=== PATIENT | male | born 1940 | race Caucasian/White ===

== ENCOUNTER → 2016-12-29 | Outpatient (CLI) | payer BC ==
[~2016-12-29] MED LIST: ALPR-385 PO; ASPI81TA85 PO; CLR10 PO; DILT1CAP15 PO; FINA5TAB PO; HYDR-4717 PO; MAGN400C2 PO; METF-384 PO; PARO20TA4 PO; PARO40TA3 PO; POTA-65 PO; ROSU5TAB PO; TERA1CAP63 PO; TPRSR/100 PO
[2016-12-29 10:28] LABS: ESTIMATED AVERAGE GLUCOSE 137 mg/dl; HA1C FLAG Normal (Normal)
[2016-12-29 10:47] LABS: ALT/SGPT 24 U/L (12-78); BLOOD UREA NITROGEN 21 mg/dl (7-18); BUN/CREATININE RATIO 20.6 (10-20); CALCIUM 8.8 mg/dl (8.5-10.1); CARBON DIOXIDE 24 mmol/L (21-32); CHLORIDE 105 mmol/L (98-107); CHOLESTEROL 122 mg/dl (0-200); GLUCOSE 135 mg/dl (70-99); POTASSIUM 4.1 mmol/L (3.5-5.1); SODIUM 140 mmol/L (136-145)
[2016-12-29 10:51] LABS: CHOLESTEROL/HDL RATIO 2.6; HDL CHOLESTEROL 47 mg/dl; LDL CHOLESTEROL CALCULATED 49 mg/dl; PHOSPHORUS 2.8 mg/dl (2.5-4.9); TRIGLYCERIDES 129 mg/dl (0-150); VERY LOW DENSITY LIPOPROT CALC 26 mg/dl
--- NOTE | 2017-01-04 12:16 | CODING QUERY MEDICAL NECESSITY ---
SUPPORTING DIAGNOSIS NEEDED A supporting diagnosis is required for the test/procedure performed on this patient in order for us to be reimbursed by the patient's insurance. Please provide a supporting diagnosis for the following test/procedure listed below next to the test name along with your signature. *If there is no additional diagnosis for this patient that would support the following test/procedure please document that below next to the test/procedure. Test(s)/Procedure(s) that require a supporting diagnosis: * GLYCATED HEMOGLOBIN DIAGNOSIS: * DOS: 12/29/16 Provider Signature: Date: Thank you Jayla Palacio Health Information Management Once completed, please kindly fax back to [phone] For questions please call [phone]
== END | disposition home or self-care (01) ==
LOC: C.LAB1850 09:13
PROVIDERS: ATTEND Family Medicine
DX: I10 Essential (primary) hypertension (principal); E78.00 Pure hypercholesterolemia, unspecified; E87.6 Hypokalemia

== ENCOUNTER → 2017-02-15 | Outpatient (CLI) | payer BC ==
[2017-02-15 12:27] LABS: BASO % 0.3 %; BASO ABS # 0.02 K/uL (0-0.2); COMPLETE YES; EOS % 5.5 %; HEMATOCRIT 39.3 % (42-52); IG% 0.1 %; LYMPH % 27.8 %; LYMPH ABS # 1.86 K/uL (1.2-3.4); MEAN CELL VOLUME 94.2 fL (80-100); MEAN CORPUSCULAR HEMOGLOBIN 32.4 pg (25-34); MEAN CORPUSCULAR HGB CONC 34.4 g/dl (32-36); MONO % 10.6 %; NEUT % 55.7 %; PLATELET COUNT 227 K/uL (130-400); RED BLOOD COUNT 4.17 M/uL (4.7-6.1); WHITE BLOOD COUNT 6.68 K/uL (4.8-10.8)
[2017-02-15 13:27] LABS: ALT/SGPT 25 U/L (12-78); BLOOD UREA NITROGEN 23 mg/dl (7-18); BUN/CREATININE RATIO 23.2 (10-20); CARBON DIOXIDE 25 mmol/L (21-32); CHLORIDE 108 mmol/L (98-107); GLUCOSE 139 mg/dl (70-99); POTASSIUM 4.2 mmol/L (3.5-5.1); SODIUM 141 mmol/L (136-145)
[2017-02-15 13:31] LABS: CALCIUM 9.3 mg/dl (8.5-10.1)
[2017-02-15 13:38] LABS: ALB/GLOB RATIO 1.2 (0.9-2); ALKALINE PHOSPHATASE 57 U/L (45-117); AST/SGOT 20 U/L (15-37); FERRITIN 118.5 ng/ml (8.0-388.0); PHOSPHORUS 2.9 mg/dl (2.5-4.9); THYROID STIMULATING HORMONE 0.745 uIu/ml (0.300-4.500)
== END | disposition home or self-care (01) ==
LOC: C.LAB1850 11:04
PROVIDERS: ATTEND Dermatology
DX: L29.9 Pruritus, unspecified (principal); C44.519 Basal cell carcinoma of skin of other part of trunk; L82.1 Other seborrheic keratosis; L57.0 Actinic keratosis

== ENCOUNTER → 2017-02-15 | Outpatient (CLI) | payer BC | END | disposition home or self-care (01) | LOC: C.PATHSPEC 10:10 | PROVIDERS: ATTEND Dermatology | DX: C44.519 Basal cell carcinoma of skin of other part of trunk (principal); L82.1 Other seborrheic keratosis; L57.0 Actinic keratosis ==

== ENCOUNTER → 2017-04-15 | Outpatient (CLI) | payer BC | END | disposition home or self-care (01) | LOC: C.PATHSPEC 16:20 | PROVIDERS: ATTEND Dermatology | DX: C44.519 Basal cell carcinoma of skin of other part of trunk (principal) ==

== ENCOUNTER → 2017-07-07 | Outpatient (CLI) | payer BC ==
[2017-07-07 12:35] LABS: BLOOD UREA NITROGEN 16 mg/dl (7-18); CALCIUM 8.8 mg/dl (8.5-10.1); CARBON DIOXIDE 26 mmol/L (21-32); CHLORIDE 107 mmol/L (98-107); CREATININE 0.97 mg/dl (0.60-1.40); GLUCOSE 146 mg/dl (70-99); MAGNESIUM 1.8 mg/dl (1.8-2.4); POTASSIUM 3.9 mmol/L (3.5-5.1); SODIUM 140 mmol/L (136-145)
[2017-07-07 12:38] LABS: ALT/SGPT 21 U/L (12-78); CHOLESTEROL 114 mg/dl (0-200); CHOLESTEROL/HDL RATIO 2.4; HDL CHOLESTEROL 47 mg/dl; LDL CHOLESTEROL CALCULATED 42 mg/dl; TRIGLYCERIDES 123 mg/dl (0-150); VERY LOW DENSITY LIPOPROT CALC 25 mg/dl
[2017-07-07 12:42] LABS: ESTIMATED AVERAGE GLUCOSE 157 mg/dl; HA1C FLAG Normal (Normal)
[2017-07-07 13:11] LABS: RATIO 18.8 mcg/mg (0-30.0)
--- NOTE | 2017-07-14 12:27 | CODING QUERY MEDICAL NECESSITY ---
SUPPORTING DIAGNOSIS NEEDED A supporting diagnosis is required for the test/procedure performed on this patient in order for us to be reimbursed by the patient's insurance. Please provide a supporting diagnosis for the following test/procedure listed below next to the test name along with your signature. *If there is no additional diagnosis for this patient that would support the following test/procedure please document that below next to the test/procedure. Test(s)/Procedure(s) that require a supporting diagnosis: * VITAMIN B12 DIAGNOSIS: Provider Signature: Date: Thank you Yun [place] [employer] Information Management Once completed, please kindly fax back to [phone] For questions please call [phone]
== END | disposition home or self-care (01) ==
LOC: C.LAB1850 10:34
PROVIDERS: ATTEND Family Medicine
DX: E11.9 Type 2 diabetes mellitus without complications (principal); E83.42 Hypomagnesemia

== ENCOUNTER → 2017-09-05 | Outpatient (CLI) | payer BC ==
[2017-09-05 10:22] LABS: URINE APPEARANCE CLEAR (CLEAR); URINE BILIRUBIN NEG (NEG); URINE COLOR YELLOW; URINE NITRITE NEG (NEG); URINE SPECIFIC GRAVITY 1.026 (1.000-1.030); UROBILINOGEN NEG (NEG)
[2017-09-05 10:29] LABS: BLOOD UREA NITROGEN 19 mg/dl (7-18); BUN/CREATININE RATIO 18.7 (10-20); CALCIUM 8.9 mg/dl (8.5-10.1); CARBON DIOXIDE 28 mmol/L (21-32); CHLORIDE 103 mmol/L (98-107); CREATININE 1.01 mg/dl (0.60-1.40); GLUCOSE 161 mg/dl (70-99); MAGNESIUM 1.8 mg/dl (1.8-2.4); SODIUM 140 mmol/L (136-145)
[2017-09-05 10:34] LABS: MANUAL MICROSCOPIC REQUIRED? NO; REVIEW REQ? NO
== END | disposition home or self-care (01) ==
LOC: C.LAB1850 08:06
PROVIDERS: ATTEND Internal Medicine Nephrology
DX: I10 Essential (primary) hypertension (principal)

== ENCOUNTER → 2017-09-06 | Outpatient (CLI) | payer BC | END | disposition home or self-care (01) | LOC: C.PATHSPEC 17:39 | PROVIDERS: ATTEND Dermatology | DX: L72.0 Epidermal cyst (principal) ==

== ENCOUNTER → 2017-09-21 | Outpatient (CLI) | payer BC ==
[2017-09-21 12:29] LABS: BLOOD UREA NITROGEN 11 mg/dl (7-18); GLUCOSE 159 mg/dl (70-99)
[2017-09-21 12:30] LABS: BUN/CREATININE RATIO 11.4 (10-20); CALCIUM 8.8 mg/dl (8.5-10.1); CARBON DIOXIDE 28 mmol/L (21-32); CHLORIDE 103 mmol/L (98-107); PHOSPHORUS 2.6 mg/dl (2.5-4.9); POTASSIUM 3.1 mmol/L (3.5-5.1); SODIUM 139 mmol/L (136-145)
== END | disposition home or self-care (01) ==
LOC: C.LAB1850 09:39
PROVIDERS: ATTEND Internal Medicine Nephrology
DX: I10 Essential (primary) hypertension (principal)

== ENCOUNTER → 2018-01-10 | Outpatient (CLI) | payer BC ==
[2018-01-10 12:45] LABS: HEMOGLOBIN A1C 7.4 % (4.5-5.6)
[2018-01-10 12:51] LABS: ALT/SGPT 21 U/L (12-78); BLOOD UREA NITROGEN 15 mg/dl (7-18); CALCIUM 9.1 mg/dl (8.5-10.1); CARBON DIOXIDE 30 mmol/L (21-32); CHOLESTEROL 130 mg/dl (0-200); CREATININE 1.08 mg/dl (0.60-1.40); GLUCOSE 172 mg/dl (70-99); POTASSIUM 3.5 mmol/L (3.5-5.1); SODIUM 139 mmol/L (136-145)
[2018-01-10 12:55] LABS: LDL CHOLESTEROL CALCULATED 60 mg/dl
== END | disposition home or self-care (01) ==
LOC: C.LAB1850 09:57
PROVIDERS: ATTEND Family Medicine
DX: I10 Essential (primary) hypertension (principal); E11.9 Type 2 diabetes mellitus without complications; E78.00 Pure hypercholesterolemia, unspecified; E83.42 Hypomagnesemia

== ENCOUNTER 2020-07-03 11:55 | Observation (INO) ==
[2020-07-03] MEDS ORDERED: BACITRACIN INJ 50,000 UNIT VIAL ONE (12:03)
[2020-07-03] MEDS ORDERED: BUPIVACAINE 0.25% 30 ML VIAL ONE (12:03)
[2020-07-03] MEDS ORDERED: LIDOCAINE HCL 1% 20 ML VIAL ONE (12:03)
[2020-07-03] MEDS ORDERED: MIDAZOLAM HCL 5 MG/ML 1 ML VIAL ONE (12:19)
[2020-07-03] MEDS ORDERED: CEFAZOLIN 250 MG/ML 1 GM VIAL ONE (12:20)
[2020-07-03] MEDS ORDERED: fentaNYL citrate 100 MCG/2 ML VIAL ONE ×2 (12:20→13:54)
--- NOTE | 2020-07-03 12:23 | History & Physical Bridge Note ---
Date of Service July 03, 2020 History & Physical Bridge Note I have examined the patient, reviewed the History & Physical and in the interval since the performance of the History & Physical I have noted the following changes of clinical significance: no changes noted
--- NOTE | 2020-07-03 12:25 | Pre Anesthesia Assessment ---
Date of Service July 03, 2020 Pre Sedation Assessment Vital Signs Temp Pulse Resp BP Pulse Ox 07/03/20 12:09 36.6 C 74 18 176/82 H 97 Cardiovascular + regular rate Respiratory + respiratory effort normal Pre-Sedation Airway Assessment Smoking Status: Never smoker Hx Sleep Apnea: No Hx Difficult Intubation: No Short, Thick Neck: No Thyromental Distance: > or= 3.5 Finger Breadths Oral Cavity: + WNL Mallampati Class: III ASA: ASA3 Procedure Planning Contraindications for Sedation: none Current Medications Reviewed: Yes Notes The planned sedation has been discussed with the patient. Informed Consent was obtained. I have identified the patient, determined the appropriateness of sedation and have assessed the patient immediately prior to the procedure. All medicine(s) and interventions are by my order.
[2020-07-03] MEDS ORDERED: OXYCODONE HCL IR 5 MG TAB (IMMEDIATE RELEASE) PO PRN (14:29)
[2020-07-03] MEDS ORDERED: ACETAMINOPHEN 325 MG TAB PO PRN (14:29)
--- NOTE | 2020-07-03 14:29 | Electrophysiology Report ---
Date of Service July 03, 2020 Electrophysiology Procedure Electrophysiology Procedure Report Procedure performed: Implantation of biventricular ICD Staff electrical line splicer: Noe Davenport MD Indication: The patient is a 79-year-old gentleman with a history of an ischemic cardiomyopathy. Despite optimal medical therapy continues to have an ejection fraction less than 35%. He has not had a revascularization in the past 90 days or myocardial infarction in the past 40 days. He has an anticipated longevity greater than 1 year. Continues to have symptoms of congestive heart failure. He is also noted to have a very long first-degree AV block and a right bundle branch block with a QRS duration greater than 150 ms. As such, he is felt to be a good candidate for biventricular pacing. An ICD was implanted for primary prevention of sudden cardiac . Procedure in detail: The patient was informed of the risks benefits and alternatives to the intended procedure and she wished to proceed. He was taken to the electrophysiology suite in a fasting state. A preoperative antibiotic had been administered. The patient was monitored electrocardiographically throughout today's procedure and conscious sedation was administered per protocol. The left upper pectoral area is prepped and draped in usual sterile fashion. This area was anesthetized using subcutaneous administration of a xylocaine solution. An incision was made at this site and carried down to the prepectoralis fascia using sharp dissection. Electrocautery was also employed for dissection as well as for hemostasis. A device pocket was fashioned tissues above the pectoralis muscle. Subsequent to this maneuver the left axillary vein was accessed using modified Seldinger technique. 2 sheaths were initially placed over guidewires and use facilitate passage of the right atrial and right ventricular leads under fluoroscopic guidance. Adequate sensing and threshold parameters were obtained prior to active excision of these leads to the endocardial surface. The proximal portion of the leads were then sutured the prepectoral/using nonabsorbable suture. A third sheath was placed over guidewire and used to facilitate passage of a guiding catheter for engagement of the coronary sinus. Once engaged limited coronary sinus venography was performed in order to identify suitable target vessel. Once identified standard guidewire techniques were employed in order deliver the pacing lead to the target vessel. Adequate sensing and threshold parameters as well as the absence of diaphragmatic stimulation at high output were obtained prior to removal of the guiding sheath. The proximal portion of lead was then sutured the prepectoral/using nonabsorbable suture. The device pocket was irrigated with antibiotic solution. The leads were then attached to the device. The device and leads were then placed in the pocket and pocket was closed in 3 layers of absorbable suture. Steri-Strips and sterile dressing were applied. The device was tested noninvasively prior to conclusion the procedure. The patient tolerated procedure well there no immediate complications. Equipment used: New pulse generator: Patch Driller [employer]. Model number: [id number] serial number [id number] Right atrial lead: Patch Driller [employer]. Model number: 5076 serial number [id number] Right ventricular lead: Patch Driller [employer]. Model number: 6935M serial number [id number] Left ventricular lead: Patch Driller [employer]onic. Model #4298 serial number [id number] Measured data: Right atrial lead: The patient was in atrial fibrillation at the time of implant. Right ventricular lead: R waves measured 7.5 mV. Pacing threshold 0.75 V 0.4 ms with a pacing V as of 437 ohms Left ventricular lead: R waves measured 10.1 mV. Pacing threshold was 0.75 V 0.4 ms with a pacing pins of 380 ohms Impression: Successful implantation of biventricular ICD New atrial fibrillation [facility] Electrophysiology codes Pacing Procedure 1: Pacin BiV electrode w/Pacer / ICD implant, add on code ICD Procedure 1: ICD: 35508 Insert single or dual ICD system PG Moderate Sedation Codes Moderate Sedation Codes Procedure 1: Sedation/Anesthesia: 44531 Mod Sedation by the same physician;Init15 Min Child Age 5 & Up Procedure 2: Sedation/Anesthesia: 95101 Mod Sedation by the same physician;Init15 Min Child Age 5 & Up
--- NOTE | 2020-07-03 14:32 | Post Anesthesia Assessment ---
Date of Service July 03, 2020 Post Sedation Assessment Vital Signs Temp Pulse Resp BP Pulse Ox 07/03/20 12:09 36.6 C 74 18 176/82 H 97 Recovery Score Activity: Moves 4 extremities Respiration: Deep Breath/Cough Circulation: +/-20% PreAnes Value Consciousness: Fully Awake Oxygen Saturation: > 92% On Room Air Discharge Sedation Level of Care: Fast Track Phase II Post Sedation Plan On clinical assessment, the patient appears to have tolerated the sedation without complications. Patient is recovering as anticipated. Patient will continue to be monitored by nursing and may be discharged when sedation discharge criteria are met per below protocol. Upon Completions of procedure up to 15 minutes continue every 5 minute vital signs and the P.A.R. score; then discharge to a Phase I or Fast Track to Phase I I per the following guidelines: * Discharge Patient to appropriate Phase II area if PAR is 8 or greater or return to pre- procedure baseline. The post - procedure orders will be as directed. * If PAR score is less than 8 or not return to pre-procedure baseline then patient will follow Phase I monitoring till PAR is reached for Phase II. The Phase I may be done in procedure room or may call to secure a Phase I area. * If naloxone or flumazenil are used for reversal, hold in Phase I for continued monitoring from when last reversal dose was given for a minimum of 60 minutes or longer pending the nurse and/or physician discretion of patient condition before discharge to Phase II. Please call the Sedation Physician to re-evaluate and complete post-note for discharge to Phase II area. Do NOT discharge from procedure sedation or Phase 1 until post- sedation evaluation note is complete by procedure /sedation MD Sedation Discharge Instructions to be given to the patient at discharge to home.
[2020-07-03] MEDS ORDERED: ALBUTEROL HFA 8 GM INHALER INH PRN (17:18)
[2020-07-03] MEDS: SACUBITRIL-VALSARTAN 97-103 MG TAB PO SCH (18:21)
[2020-07-03] MEDS: POTASSIUM CHLORIDE 20 MEQ TABCR PO SCH (18:22)
[2020-07-03] MEDS: carvediloL 25 MG TAB PO SCH (18:22)
--- NOTE | 2020-07-03 19:07 | Electrocardiogram Report ---
Test Reason : Blood Pressure : / mmHG Vent. Rate : 064 BPM Atrial Rate : 063 BPM P-R Int : 000 ms QRS Dur : 178 ms QT Int : 516 ms P-R-T Axes : 000 233 042 degrees QTc Int : 532 ms Ventricular-paced rhythm Biventricular pacemaker detected Abnormal ECG No previous ECGs available Confirmed by Noe Davenport ([id number]) on 07/03/2020 7:06:38 PM Referred By: Abel Davenport Confirmed By:Jose Alejandro Davenport
[2020-07-03] MEDS: CEFAZOLIN 1000MG 1,000 MG/7.5 ML SYR IV SCH (19:35)
[2020-07-03] MEDS ORDERED: MAGNESIUM OXIDE 400 MG TAB PO SCH (21:00)
[2020-07-04] MEDS: CEFAZOLIN 1000MG 1,000 MG/7.5 ML SYR IV SCH (03:24)
[2020-07-04] MEDS: SACUBITRIL-VALSARTAN 97-103 MG TAB PO SCH (08:22)
[2020-07-04] MEDS: carvediloL 25 MG TAB PO SCH (08:22)
[2020-07-04] MEDS: FUROSEMIDE 40 MG TAB PO SCH ×2 (08:22→08:28)
[2020-07-04] MEDS: POTASSIUM CHLORIDE 20 MEQ TABCR PO SCH (08:23)
[2020-07-04] MEDS ORDERED: ROSUVASTATIN CALCIUM 20 MG TAB PO SCH (09:00)
[2020-07-04] MEDS ORDERED: TERAZOSIN HCL 5 MG CAP PO SCH (09:00)
[2020-07-04] MEDS ORDERED: PARoxetine HCL 20 MG TAB PO SCH (09:00)
[2020-07-04] MEDS ORDERED: ASPIRIN 81 MG ECTAB PO SCH (09:00)
--- NOTE | 2020-07-04 09:44 | XRay Report ---
TWO VIEW CHEST CLINICAL HISTORY: Status post cardiac pacemaker implantation. FINDINGS: PA and lateral chest radiographs are compared to study dated 02/20/2019. A 3-lead cardiac AI CD has been placed and partially obscures the left upper chest. Leads project over the right atrial a ppendage, the right ventricle, and the coronary sinus. The heart is enlarged and there is atheroscler otic calcification of the thoracic aorta. The pulmonary vasculature is noncongested. Trace pleural ef fusions are noted on the lateral projection. There is mild chronic elevation of right hemidiaphragm w ith bibasilar atelectasis. No airspace consolidation is seen typical for pneumonia and there is no pn eumothorax. The skeletal structures are osteopenic. Degenerative change is seen throughout the thorac ic spine. The bony thorax appears intact. IMPRESSION: 1. A 2-lead cardiac AICD has been placed as above. No pneumothorax is seen post procedure. 2. Cardiomegaly without radiographic evidence of congestive failure. 3. Trace pleural effusions. Electronically signed by: Miguel Weber M.D. 07/04/2020 9:43 AM
--- NOTE | 2020-07-04 10:54 | Discharge Summary ---
Date of Service July 04, 2020 Admission HPI Per Admitting Provider Patient with ischemic CM admitted for implantation of BiV ICD Principal Diagnosis q Discharge Exam WOund healing well. No hematoma. No erythema or drainage Discharge Data Allergies Allergy/AdvReac Type Severity Reaction Status Date / Time Penicillins Allergy Unknown Unknown Verified 06/27/20 09:29 finasteride AdvReac Intermediate painful Verified 06/27/20 09:29 breast lisinopril AdvReac Mild cough Verified 06/27/20 09:29 Procedures Performed Operation Date: 07/03/20 13:00 Actual Procedures s Lead LV (No Priopr Implant) - Abel Davenport MD p ICD Insertion Single or Dual - Abel Davenport MD Ordered Studies 07/03/20 06:45 EP Lab Images for PACS ONCE Hospital Course (1) Ischemic cardiomyopathy: Uncomplicated placement of BiV ICD. Interrogation on the day of discharge revealed poor sensing on the atrial lead. Remaining function was normal. CXR did not demonstrate any pneumothorax. Patient presented in atrial fibrllation which was a new diagnosis. Advised to start Xarelto and stop aspirin Total Time Total Time Spent Total Time Spent (In Minutes): 15 Total Time Includes: Examination of the Patient, Discharge Planning and Medication Reconciliation Discharge Plan Discharge Items Patient Disposition: Home - Self-Care Reason For Visit: Ischemic Cardiomyopathy Discharge Diagnosis: ischemic CM Activity: Per Instructions section Activity Comment: Lifting left arm above shoulder be high neck for 6 weeks Lifting: No more than 10 pounds Bathing: Keep incision dry Bathing Comment: Keep wound dry Steri-Strips intact until follow-up next week Driving/Machine Use: Resume 1 day after discharge Non-emergency contact: 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 Washington at [facility] on Tuesday07/07/2020 at 10:20 am. Please arrive to the office 15 minutes early for your appoinment. If you are unable to keep this appointment, please call the office to reschedule at [phone].) Diet: Carb Consistent or DM2 and Heart Healthy Addtl Attending Provider Instructions: Start prescription for Xarelto. Stop aspirin once you have started Xarelto Pending Studies at Discharge: No Stand-Alone Forms: My [facility], Smoking Cessation Medications and DC Order Prescriptions: New Xarelto 20 mg tablet 20 mg PO DAILY Qty: 30 RF: 5 Continued magnesium oxide 400 mg (241.3 mg magnesium) tablet 400 mg PO QPM Qty: 90 RF: 1 paroxetine HCl 40 mg tablet 40 mg PO DAILY Qty: 90 RF: 1 carvedilol 25 mg tablet 25 mg PO BID Qty: 180 RF: 3 metformin 1,000 mg tablet 1,000 mg PO BID Qty: 180 RF: 1 terazosin 10 mg capsule 20 mg PO DAILY Qty: 180 RF: 1 Zeasorb AF 2 % powder 1 appln TOP DAILY PRN (Reason: INGUINAL FOLDS) RF: 0 rosuvastatin 20 mg tablet 20 mg PO DAILY Qty: 90 RF: 3 alprazolam 0.5 mg tablet 0.25 mg PO BID PRN (Reason: anxiety) Qty: 90 RF: 0 furosemide [Lasix] 40 mg tablet 40 mg PO DAILY Qty: 90 RF: 3 hydrocortisone 2.5 % cream 1 applic TOPICAL BID Qty: 30 RF: 5 potassium chloride 10 mEq capsule, extended release 40 meq PO BID Qty: 300 RF: 11 aspirin [Aspirin Low Dose] 81 mg tablet,delayed release (DR/EC) 81 mg PO DAILY RF: 0 sacubitril-valsartan 97-103 mg tablet 1 tab PO BID Qty: 180 RF: 3 albuterol sulfate [Ventolin HFA] 90 mcg/actuation HFA aerosol inhaler 2 puff INHALATION Q4H PRN (Reason: shortness of breath) RF: 0 Discharge Orders: Discharge Order (Routine); Ordered 07/04/20 Ordered By: Abel Davenport Admission Data Admit Date/Time: 07/03/20 12:52 Attending Provider: Abel Davenport Admit Provider: Abel Davenport Primary Care Provider: Emelyn Washington Other Interventions: Discharge Summary Assessment (RN) Last Done: 07/04/20 11:03 Coding Level of Care Code 48499 OBS Care - Discharge Diagnoses Ischemic cardiomyopathy I25.5
== END 2020-07-04 11:05 | disposition home or self-care (01) ==
LOC: EP 11:55 → 2S 11:55
PROC: EPB.ICD (2020-07-03 13:00)

== ENCOUNTER 2021-02-11 14:49 | Observation (INO) ==
[2021-02-11] MEDS ORDERED: MoRPHine SULFATE 4 MG/ML 1 ML CARP\\VIAL IV PRN (15:05)
[2021-02-11] MEDS ORDERED: ONDANSETRON INJ 2 MG/ML 2 ML VIAL IV STA (15:05)
--- NOTE | 2021-02-11 15:11 | Emergency Department Note ---
Impression & Plan Severe right groin pain, Anemia, Incarcerated hernia, Elevated lactic acid level ED Provider Note NAME: KEDAR CRAWLEY AGE: 80 SEX: M : 1940 ARRIVES VIA: Walk-In INFORMANT: [Patient] ED PROVIDER(S): [Miguel Doll MD] CHIEF COMPLAINT: Groin pain HISTORY OF PRESENT ILLNESS: Patient is a 80-year-old male who initially, thought he was constipated. He started taking some Metamucil and Colace. Patient states that yesterday, he noticed some pain in the right groin. Today, he had a large bowel movement and felt no better. He had increased pain in the right groin and felt a lump. Patient went to his doctor's office and was referred to the ED. The patient describes the pain earlier today in the groin as a 10/10. He has had some nausea no vomiting. No fever. He is still making urine. There has been no cough or congestion or shortness of breath. Patient states that the pain is less now at a 5 although, if the area is touched, it becomes a 10. The patient has a history of A. fib. He is on Xarelto. REVIEW OF SYSTEMS: See HPI for pertinent positives and negatives. A total of ten systems were reviewed and were otherwise negative. PMHx/PSHx: See Below SOCIAL HISTORY: See Below. PHYSICAL EXAM: GENERAL: Patient is in no acute distress. HEENT: No acute trauma, normocephalic atraumatic, mucous membranes moist, no nasal congestion, no scleral icterus. NECK: No stridor, no adenopathy, no meningismus, trachea is midline. LUNGS: Clear to auscultation bilaterally, no wheeze, no rhonchi, breath sounds equal. HEART: Subtle systolic murmur, regular rate and rhythm. ABDOMEN: Soft, patient has a large firm tender mass in the right inguinal canal. There is extension of the fullness down to the scrotum. There is no scrotal erythema. Scrotum is tender as well. He is circumcised. EXTREMITIES: No cyanosis, mild bilateral pedal edema, full range of motion of all the joints without pain or difficulty, no signs for acute trauma. NEUROLOGIC: Oriented x 3, no acute motor or sensory deficits, no focal weakness. SKIN: No rash, no jaundice, no diaphoresis. DIFFERENTIAL DIAGNOSIS: Appendicitis, testicular torsion, infections, diverticulitis, UTI, obstruction, mesenteric ischemia, aortic pathology, inflammatory bowel disease, renal colic, PUD, pancreatitis, biliary pathology, hernia, volvulus, constipation, as well as other pathologies. EMERGENCY DEPARTMENT COURSE/PROCEDURES: ECG: Indication was abdominal pain. The ECG shows a ventricular pacemaker with a rate of 82. No concerning ST elevation, no PVCs. The QTc is 546. Continuous Cardiac Monitoring: An order was placed for continuous cardiac monitoring. The monitor shows a rate of 73 with a ventricular pacemaker. MEDICAL DECISION MAKING: There is no leukocytosis. A mild anemia was noted however, this has been documented before. Platelet count somewhat low at 110. There was a subtle elevation of the INR, likely consistent with his Xarelto use. There was evidence for renal insufficiency, this was baseline though when looking back at previous testing. There was no concerning electrolyte abnormality. Lactic acid level was somewhat elevated, this could be consistent with potential bowel ischemia or possibly dehydration. No worrisome liver enzyme elevation. No evidence for pancreatitis. Covid and influenza testing were negative. Chest film does not show any obvious pneumonia or free air. ECG shows a ventricular pacemaker, there was no dysrhythmia. Abdominal and pelvis CT shows a large right inguinal hernia. No bowel obstruction. The patient received IV morphine for pain, IV Zofran for nausea, he was kept n.p.o. I did speak with general surgery. The patient was seen by general surgery here in the ED. The patient is being moved to the OR for operative intervention. The hernia needs repaired. The patient is aware of all his findings. He is currently resting fairly comfortably. 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 unsure of last check. placed after decision not to have CABG d/t ~[address] MILLER BPH (benign prostatic hyperplasia) CAD (coronary artery disease) Cataract RT/LEFT Chronic systolic CHF (congestive heart failure) Depression with anxiety Diabetes type 2, controlled NIDDM Hx of rheumatic fever Hx of scarlet fever Hypercholesterolemia Irregular heart beat Ischemic cardiomyopathy PVCs (premature ventricular contractions) Surgical History History of colonoscopy History of esophagogastroduodenoscopy (EGD) History of tonsillectomy History of tooth extraction S/P cardiac pacemaker procedure (~06/2020) Family History Unknown No problems noted. 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 Beliefs That Will Affect Care: None marital status: Current Living Situation: Spouse current occupational status: retired Feels Safe at Home: Yes Childhood Exposure to Second-Hand Smoke: Yes Dental Care, Regularly: Yes Assistive Devices: Cane Allergies Allergies Allergy/AdvReac Type Severity Reaction Status Date / Time Penicillins Allergy Unknown Unknown Verified 02/11/21 16:40 adhesive tape AdvReac Intermediate itching Verified 02/11/21 16:40 and rash finasteride AdvReac Intermediate painful Verified 02/11/21 16:41 breast lisinopril AdvReac Mild cough Verified 02/11/21 16:41 cotton Allergy Intermediate itching Uncoded 02/11/21 16:41 Home Meds Home Medications Medication Instructions Recorded Confirmed albuterol sulfate 90 mcg/actuation 2 puff INHALATION Q4H PRN gm 06/16/19 02/11/21 aerosol inhaler Xarelto 20 mg PO QPM 10/09/20 02/11/21 diphenhydramine HCl [Benadryl] 25 mg PO QAM PRN 10/09/20 02/11/21 docusate sodium [Colace] 100 mg PO DAILY PRN 10/09/20 02/11/21 hydrocortisone 1 applic TOPICAL BID PRN 10/09/20 02/11/21 ketoconazole 1 applic TOPICAL BID PRN 10/09/20 02/11/21 multivitamin 1 tab PO QAM 10/09/20 02/11/21 rosuvastatin 20 mg PO HS 10/09/20 02/11/21 bumetanide 4 mg PO QPM 02/10/21 02/11/21 metolazone 2.5 mg PO Q2D PRN 02/10/21 02/11/21 terazosin 10 mg PO BID 02/10/21 02/11/21 Previous Rx's Medication Instructions Recorded potassium chloride 10 mEq 40 meq PO BID #300 cap 05/21/20 capsule,extended release sacubitril 97 mg-valsartan 103 mg 1 tab PO BID #180 tab 11/21/20 tablet carvedilol 25 mg tablet 25 mg PO BID #180 tab 11/28/20 metformin 1,000 mg tablet 1,000 mg PO BID #180 tab 12/05/20 magnesium oxide 400 mg (241.3 mg 400 mg PO QPM #90 tab 12/25/20 magnesium) tablet buspirone 15 mg tablet 7.5 mg PO BID #90 tab 01/06/21 Results & Data (ED) Vital Signs Vital Signs - 24 hr 02/11/21 14:53 02/11/21 16:00 02/11/21 16:11 Temperature 36.3 C L Temperature Source Temporal Artery Scan Pulse Rate 73 81 81 Pulse Rate [Apical] Pulse Rate from SpO2 Sensor 81 80 Pulse Rhythm Regular Pulse Rhythm [Apical] Pulse Strength Normal Pulse Strength [Apical] Respiratory Rate 18 15 16 Respiratory Effort / Characteristics Non-Labored Spontaneous Respiratory Depth Normal Respiratory Pattern Regular Blood Pressure 152/81 H 143/85 H Blood Pressure [Left Arm] Blood Pressure Mean 104 104 Blood Pressure Mean [Left Arm] Blood Pressure Position Sitting Blood Pressure Position [Left Arm] Pulse Oximetry 95 93 94 Oxygen Delivery Method Room Air Room Air Room Air Sepsis Recent Fever Within 48 Hours No Sepsis New/Unexplained Change in Mental Status N/A Sepsis Action Taken by Nursing No Action Required 02/11/21 16:29 02/11/21 16:30 02/11/21 18:01 Temperature 36.7 C Temperature Source Oral Pulse Rate 83 Pulse Rate [Apical] 87 Pulse Rate from SpO2 Sensor Pulse Rhythm Pulse Rhythm [Apical] Regular Pulse Strength Pulse Strength [Apical] Normal Respiratory Rate 18 14 18 Respiratory Effort / Characteristics Non-Labored Spontaneous Respiratory Depth Normal Respiratory Pattern Regular Blood Pressure 128/89 Blood Pressure [Left Arm] 134/80 Blood Pressure Mean 102 Blood Pressure Mean [Left Arm] 98 Blood Pressure Position Blood Pressure Position [Left Arm] Semi-fowlers Pulse Oximetry 94 96 Oxygen Delivery Method Room Air Room Air Room Air Sepsis Recent Fever Within 48 Hours Sepsis New/Unexplained Change in Mental Status Sepsis Action Taken by Assisted Medications Current Medication List: was personally reviewed by me Laboratory Data Attestation: I reviewed the patient's lab results. Result diagrams: 02/11/21 15:24 02/11/21 15:24 Lab Results 02/11/21 02/11/21 02/11/21 Range/Units 15:24 15:24 15:24 WBC 4.55 L (4.8-10.8) K/uL RBC 3.67 L (4.7-6.1) M/uL Hgb 12.0 L (14.0-18.0) g/dL Hct 34.2 L (42-52) % MCV 93.2 (80-100) fL MCH 32.7 (25-34) pg MCHC 35.1 (32-36) g/dL RDW Std Deviation 43.4 (36.4-46.3) fL RDW Coeff of Cecilia 12.8 (11.5-14.5) % Plt Count 110 L (130-400) K/uL MPV 10.6 H (7.4-10.4) fL Immature Gran % (Auto) 0.2 % Neut % (Auto) 71.2 % Lymph % (Auto) 16.3 % [place] % (Auto) 7.0 % Eos % (Auto) 5.1 % Baso % (Auto) 0.2 % Neut # (Auto) 3.24 (1.4-6.5) K/uL Lymph # (Auto) 0.74 L (1.2-3.4) K/uL [place] # (Auto) 0.32 (0.11-0.59) K/uL Eos # (Auto) 0.23 (0-0.5) K/uL Baso # (Auto) 0.01 (0-0.2) K/uL Immature Gran # (Auto) 0.01 (0.00-0.02) K/uL PT 13.4 H (9.0-12.0) Seconds INR 1.4 H (0.9-1.1) APTT 30.1 (21.0-31.0) Seconds PTT Ratio 1.1 Sodium 137 (136-145) mmol/L Potassium 4.0 (3.5-5.1) mmol/L Chloride 101 (98-107) mmol/L Carbon Dioxide 30 (21-32) mmol/L Anion Gap 7.0 (3-11) BUN 34 H (7-18) mg/dl Creatinine 2.10 H (0.6-1.4) mg/dl Est Cr Clr Drug Dosing Not Reportable Est GFR ( Amer) 33.9 Est GFR (Non-Af Amer) 29.3 BUN/Creatinine Ratio 16.1 (10-20) Glucose 167 H (70-99) mg/dl Lactate (0.4-2.0) mmol/L Calcium 10.0 (8.5-10.1) mg/dl Total Bilirubin 1.2 H (0.2-1) mg/dl AST 28 (15-37) U/L ALT 24 (12-78) U/L Alkaline Phosphatase 117 (45-117) U/L Total Protein 7.4 (6.4-8.2) gm/dl Albumin 4.3 (3.4-5.0) gm/dl Globulin 3.1 (2.5-4.0) gm/dl Albumin/Globulin Ratio 1.4 (0.9-2) Lipase 157 (73-393) U/L COVID-19 Eval Order SARS-CoV-2 (PCR) (Negative) Influenza Type A (PCR) (Neg) Influenza Type B (PCR) (Neg) RSV (RT-PCR) (Neg) 02/11/21 02/11/21 02/11/21 Range/Units 15:24 15:40 15:40 WBC (4.8-10.8) K/uL RBC (4.7-6.1) M/uL Hgb (14.0-18.0) g/dL Hct (42-52) % MCV (80-100) fL MCH (25-34) pg MCHC (32-36) g/dL RDW Std Deviation (36.4-46.3) fL RDW Coeff of Cecilia (11.5-14.5) % Plt Count (130-400) K/uL MPV (7.4-10.4) fL Immature Gran % (Auto) % Neut % (Auto) % Lymph % (Auto) % [place] % (Auto) % Eos % (Auto) % Baso % (Auto) % Neut # (Auto) (1.4-6.5) K/uL Lymph # (Auto) (1.2-3.4) K/uL [place] # (Auto) (0.11-0.59) K/uL Eos # (Auto) (0-0.5) K/uL Baso # (Auto) (0-0.2) K/uL Immature Gran # (Auto) (0.00-0.02) K/uL PT (9.0-12.0) Seconds INR (0.9-1.1) APTT (21.0-31.0) Seconds PTT Ratio Sodium (136-145) mmol/L Potassium (3.5-5.1) mmol/L Chloride (98-107) mmol/L Carbon Dioxide (21-32) mmol/L Anion Gap (3-11) BUN (7-18) mg/dl Creatinine (0.6-1.4) mg/dl Est Cr Clr Drug Dosing Est GFR ( Amer) Est GFR (Non-Af Amer) BUN/Creatinine Ratio (10-20) Glucose (70-99) mg/dl Lactate 2.1 H* (0.4-2.0) mmol/L Calcium (8.5-10.1) mg/dl Total Bilirubin (0.2-1) mg/dl AST (15-37) U/L ALT (12-78) U/L Alkaline Phosphatase (45-117) U/L Total Protein (6.4-8.2) gm/dl Albumin (3.4-5.0) gm/dl Globulin (2.5-4.0) gm/dl Albumin/Globulin Ratio (0.9-2) Lipase (73-393) U/L COVID-19 Eval Order CovFluRsv at [facility] SARS-CoV-2 (PCR) NEGATIVE (Negative) Influenza Type A (PCR) Negative (Neg) Influenza Type B (PCR) Negative (Neg) RSV (RT-PCR) Negative (Neg) Administered Medications Discontinued Medications Bacitracin (Bacitracin Oint 15 Gm Tube) Confirm Administered Dose 45 appln .ROUTE .STK-MED ONE Stop: 02/11/21 18:45 Last Admin: 02/11/21 20:01 Dose: 45 appln Documented by: [id number] Bupivacaine HCl (Bupivacaine 0.5 % 5 Mg/1 Ml Mpf 30ml Vial) Confirm Administered Dose 30 ml .ROUTE .STK-MED ONE Stop: 02/11/21 18:46 Last Admin: 02/11/21 20:02 Dose: 20 ml Documented by: [id number] Ciprofloxacin (Ciprofloxacin 400mg / 200ml D5w) Confirm Administered Dose 400 mg IV .STK-MED ONE Stop: 02/11/21 18:04 Last Admin: 02/11/21 18:08 Dose: Not Given Documented by: [id number] Ciprofloxacin (Cipro / D5w) 400 mg in 200 mls @ 100 mls/hr IV NOW STA; Protocol Stop: 02/11/21 20:39 Last Admin: 02/11/21 18:33 Dose: 100 mls/hr Documented by: [id number] Lidocaine HCl (Lidocaine Hcl 1% 20 Ml Vial) Confirm Administered Dose 20 ml .ROUTE .[employer]-MED ONE Stop: 02/11/21 18:46 Last Admin: 02/11/21 20:02 Dose: 20 ml Documented by: [id number] Morphine Sulfate (Morphine Sulfate 4 Mg/Ml 1 Ml Carp\Vial) 2 mg IV Q15M PRN PRN Reason: Pain Stop: 02/25/21 15:04 Last Admin: 02/11/21 15:38 Dose: 2 mg Documented by: [id number] Ondansetron HCl (Ondansetron Inj 2 Mg/Ml 2 Ml Vial) 4 mg IV NOW STA Stop: 02/11/21 15:06 Last Admin: 02/11/21 15:38 Dose: 4 mg Documented by: [id number] Imaging Data Radiologist's Impression: Abdomen/Pelvis CT 02/11/21 15:05 CT SCAN OF THE ABDOMEN AND PELVIS WITHOUT CONTRAST CLINICAL HISTORY: right groin hernia into scrotum GROIN PAIN COMPARISON STUDY: No previous studies for comparison. TECHNIQUE: CT scan of the abdomen and pelvis was performed from the lung bases to the proximal femurs. Images are reviewed in the axial, sagittal, and coronal planes. IV contrast was not administered for this examination. A dose lowering technique was utilized adhering to the principles of ALARA. CT DOSE: 613.46 mGy.cm FINDINGS: Lower chest: There are coronary artery calcifications. Pacemaker is visualized. The heart is mildly enlarged. There is minor basilar atelectasis. Liver: The unenhanced liver is normal in size, contour, and attenuation. There is no intrahepatic biliary ductal dilatation. Gallbladder: Unremarkable. Spleen: Normal in size and attenuation. Pancreas: Unremarkable. Adrenal glands: There is mild low density adrenal gland thickening. Kidneys: There are multiple bilateral low-density renal masses consistent with cysts. There is no significant hydronephrosis. There is a nonspecific 5 mm hyperdense left renal focus, likely representing a hyperdense cyst although incompletely evaluated on this noncontrast study. Bowel: There are no transition zones to indicate bowel obstruction. There is a right inguinal hernia containing both small bowel loops as well as the appendix. There is mild infiltration of the mesenteric fat within the hernia sac. There is a right-sided hydrocele. There is no evidence of acute diverticulitis. Peritoneum: There is minimal free pelvic fluid. There is minimal increased density of the lower pelvic mesentery. There is no free intraperitoneal air. There is also a small fat-containing left inguinal hernia and small fat- containing umbilical hernia. Vasculature: Atheromatous changes are present within the mesenteric vessels aorta and iliac vessels. There is no evidence of aortic aneurysm. Adenopathy: None. Pelvic viscera: The prostate is enlarged. Skeletal structures: There are a few scattered sclerotic lesions statistically representing bone islands. Degenerative changes are present within the spine. IMPRESSION: 1. No evidence of bowel obstruction. No evidence of free air 2. Right inguinal hernia containing both small bowel loops as well as the appendix. There is infiltration of the mesenteric fat within the hernia sac. There is a right-sided hydrocele. 3. Small fat-containing left inguinal hernia and umbilical hernia 4. Small amount of free pelvic fluid. Minimal infiltration of the pelvic mesentery. 5. Prostatomegaly 6. Bilateral renal lesions likely representing a combination of cysts and hyperdense cysts. ACT 112: Negative or not required by law. Electronically signed by: Leonel Sanchez M.D. 02/11/2021 4:37 PM Chest X-Ray 02/11/21 15:05 XR chest 1V portable CLINICAL HISTORY: Pain, radiating to the abdomen COMPARISON STUDY: 01/13/2021 FINDINGS: The heart remains enlarged. There is a left subclavian pacer/defibrillator. There is stable elevation/eventration right hemidiaphragm. There is no failure. There is no focal pulmonary consolidation. There are no pleural effusions. There is no free intraperitoneal air.[ IMPRESSION: 1. Stable cardiac enlargement. No active disease in the chest. ACT 112: Negative or not required by law. Electronically signed by: Leonel Sanchez M.D. 02/11/2021 3:40 PM Discharge Plan Visit Data Chief Complaint: Groin Pain Stated Complaint: HERNIA IN GROIN AREA ED Provider: Miguel Doll Discharge Problem: Severe right groin pain, Anemia, Incarcerated hernia, Elevated lactic acid level Patient Disposition: Admitted As Inpatient Condition: Fair Discharge Instructions Interventions: ED Discharge Assessment Last Done: 02/11/21 18:00 Discharge Problem: Anemia Qualifiers: Anemia type: unspecified type Qualified Code(s): D64.9 - Anemia, unspecified
--- NOTE | 2021-02-11 15:30 | Electrocardiogram Report ---
Test Reason : Blood Pressure : / mmHG Vent. Rate : 082 BPM Atrial Rate : 107 BPM P-R Int : 000 ms QRS Dur : 188 ms QT Int : 468 ms P-R-T Axes : 000 226 041 degrees QTc Int : 546 ms Ventricular-paced rhythm Biventricular pacemaker detected Abnormal ECG When compared with ECG of 01-JAN-2021 11:38, Vent. rate has decreased BY 3 BPM Confirmed by Noe Davenport ([id number]) on 02/11/2021 3:30:04 PM Referred By: Confirmed By:Jose Alejandro Davenport
[2021-02-11 15:39] LABS: Basophils # (auto) 0.01 K/uL (0-0.2); Basophils % (auto) 0.2 %; Eosinophils # (auto) 0.23 K/uL (0-0.5); Eosinophils % (auto) 5.1 %; Hematocrit (blood only) 34.2 % (42-52); Immature Granulocytes # (auto) 0.01 K/uL (0.00-0.02); Immature Granulocytes % (auto) 0.2 %; Lymphocytes # (auto) 0.74 K/uL (1.2-3.4); Lymphocytes % (auto) 16.3 %; Mean Corpuscular Hemoglobin 32.7 pg (25-34); Mean Corpuscular Hgb Conc 35.1 g/dL (32-36); Mean Corpuscular Volume 93.2 fL (80-100); Mean Platelet Volume 10.6 fL (7.4-10.4); Monocytes # (auto) 0.32 K/uL (0.11-0.59); Neutrophils # (auto) 3.24 K/uL (1.4-6.5); Neutrophils % (auto) 71.2 %; Platelet Count 110 K/uL (130-400); RDW Coefficient of Variation 12.8 % (11.5-14.5); RDW Standard Deviation 43.4 fL (36.4-46.3); Red Blood Count 3.67 M/uL (4.7-6.1); White Blood Count 4.55 K/uL (4.8-10.8)
--- NOTE | 2021-02-11 15:41 | XRay Report ---
XR chest 1V portable CLINICAL HISTORY: Pain, radiating to the abdomen COMPARISON STUDY: 01/13/2021 FINDINGS: The heart remains enlarged. There is a left subclavian pacer/defibrillator. There is stable elevation/eventration right hemidiaphragm. There is no failure. There is no focal pulmonary consolid ation. There are no pleural effusions. There is no free intraperitoneal air.[ IMPRESSION: 1. Stable cardiac enlargement. No active disease in the chest. ACT 112: Negative or not required by law. Electronically signed by: Leonel Sanchez M.D. 02/11/2021 3:40 PM
[2021-02-11 15:56] LABS: INR 1.4 (0.9-1.1); Partial Thromboplastin Ratio 1.1; Partial Thromboplastin Time 30.1 Seconds (21.0-31.0); Prothrombin Time 13.4 Seconds (9.0-12.0)
[2021-02-11 15:57] LABS: Alanine Aminotransferase 24 U/L (12-78); Albumin Level 4.3 gm/dl (3.4-5.0); Aspartate Aminotransferase 28 U/L (15-37); BUN Creatinine Ratio 16.1 (10-20); Blood Urea Nitrogen 34 mg/dl (7-18); Carbon Dioxide 30 mmol/L (21-32); Chloride 101 mmol/L (98-107); Est GFR (African American) 33.9; Est GFR (Non-African American) 29.3; Glucose 167 mg/dl (70-99); Lipase 157 U/L (73-393); Sodium 137 mmol/L (136-145)
[2021-02-11 16:00] LABS: Albumin Globulin Ratio 1.4 (0.9-2); Alkaline Phosphatase 117 U/L (45-117); Bilirubin,Total 1.2 mg/dl (0.2-1); Globulin 3.1 gm/dl (2.5-4.0); Total Protein 7.4 gm/dl (6.4-8.2)
--- NOTE | 2021-02-11 16:38 | CT Scan Report ---
CT SCAN OF THE ABDOMEN AND PELVIS WITHOUT CONTRAST CLINICAL HISTORY: right groin hernia into scrotum GROIN PAIN COMPARISON STUDY: No previous studies for comparison. TECHNIQUE: CT scan of the abdomen and pelvis was performed from the lung bases to the proximal femurs . Images are reviewed in the axial, sagittal, and coronal planes. IV contrast was not administered fo r this examination. A dose lowering technique was utilized adhering to the principles of ALARA. CT DOSE: 613.46 mGy.cm FINDINGS: Lower chest: There are coronary artery calcifications. Pacemaker is visualized. The heart is mildly e nlarged. There is minor basilar atelectasis. Liver: The unenhanced liver is normal in size, contour, and attenuation. There is no intrahepatic bárbara iary ductal dilatation. Gallbladder: Unremarkable. Spleen: Normal in size and attenuation. Pancreas: Unremarkable. Adrenal glands: There is mild low density adrenal gland thickening. Kidneys: There are multiple bilateral low-density renal masses consistent with cysts. There is no sig nificant hydronephrosis. There is a nonspecific 5 mm hyperdense left renal focus, likely representing a hyperdense cyst although incompletely evaluated on this noncontrast study. Bowel: There are no transition zones to indicate bowel obstruction. There is a right inguinal hernia containing both small bowel loops as well as the appendix. There is mild infiltration of the mesenter ic fat within the hernia sac. There is a right-sided hydrocele. There is no evidence of acute diverti culitis. Peritoneum: There is minimal free pelvic fluid. There is minimal increased density of the lower pelvi c mesentery. There is no free intraperitoneal air. There is also a small fat-containing left inguinal hernia and small fat-containing umbilical hernia. Vasculature: Atheromatous changes are present within the mesenteric vessels aorta and iliac vessels. There is no evidence of aortic aneurysm. Adenopathy: None. Pelvic viscera: The prostate is enlarged. Skeletal structures: There are a few scattered sclerotic lesions statistically representing bone jonny nds. Degenerative changes are present within the spine. IMPRESSION: 1. No evidence of bowel obstruction. No evidence of free air 2. Right inguinal hernia containing both small bowel loops as well as the appendix. There is infiltra tion of the mesenteric fat within the hernia sac. There is a right-sided hydrocele. 3. Small fat-containing left inguinal hernia and umbilical hernia 4. Small amount of free pelvic fluid. Minimal infiltration of the pelvic mesentery. 5. Prostatomegaly 6. Bilateral renal lesions likely representing a combination of cysts and hyperdense cysts. ACT 112: Negative or not required by law. Electronically signed by: Leonel Sanchez M.D. 02/11/2021 4:37 PM
[2021-02-11 16:48] LABS: Influenza A virus by PCR Negative (Neg); Influenza B virus by PCR Negative (Neg); RSV by PCR Negative (Neg); SARS CoV2 RNA(COVID-19) InHosp NEGATIVE (Negative)
--- NOTE | 2021-02-11 17:41 | Surgery Consultation ---
Date of Consultation February 11, 2021 Assessment & Plan (1) Incarcerated right inguinal hernia: pt is a 80 year -old male who presents to ER with one day history right groin pain with bulging. pt is on Xarelto for his A-fib, last dose was yesterday, IMP: incarcerated right inguinal hernia, base on CT scan finding -Right inguinal hernia containing both small bowel loops as well as the appendix. There is infiltration of the mesenteric fat within the hernia sac. and lactate acid is 2. I recommend to do open repair right incarcerated inguinal hernia, possible with mesh,or bowel resection, base on pt is on Xarelto, pt has higher risks with bleeding, infection, hernia recurrence hernia, chronic pain, OH, DVT, stroke , , pt and his daughter understood, they agree with the surgery, they do not want to wait, I answered all questions, Present on Admission?: Yes History of Present Illness History of Present Illness CHIEF COMPLAINT: Groin pain HISTORY OF PRESENT ILLNESS: Patient is a 80-year-old male who initially, thought he was constipated. He started taking some Metamucil and Colace. Patient states that yesterday, he noticed some pain in the right groin. Today, he had a large bowel movement and felt no better. He had increased pain in the right groin and felt a lump. Patient went to his doctor's office and was referred to the ED. The patient describes the pain earlier today in the groin as a 10/10. He has had some nausea no vomiting. No fever. He is still making urine. There has been no cough or congestion or shortness of breath. Patient states that the pain is less now at a 5 although, if the area is touched, it becomes a 10. The patient has a history of A. fib. He is on Xarelto.last dose was taken yesterday. I ( Adri Lovell mD ) got a call for consult incarcerated right inguinal hernia, I reviewed pt's H/P, labs, CT scan with pt and his daughter. 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 unsure of last check. placed after decision not to have CABG d/t ~[address] MILLER BPH (benign prostatic hyperplasia) CAD (coronary artery disease) Cataract RT/LEFT Chronic systolic CHF (congestive heart failure) Depression with anxiety Diabetes type 2, controlled NIDDM Hx of rheumatic fever Hx of scarlet fever Hypercholesterolemia Irregular heart beat Ischemic cardiomyopathy PVCs (premature ventricular contractions) Surgical History History of colonoscopy History of esophagogastroduodenoscopy (EGD) History of tonsillectomy History of tooth extraction S/P cardiac pacemaker procedure (~06/2020) Family History Unknown No problems noted. 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 Beliefs That Will Affect Care: None marital status: Current Living Situation: Spouse current occupational status: retired Feels Safe at Home: Yes Childhood Exposure to Second-Hand Smoke: Yes Dental Care, Regularly: Yes Assistive Devices: Cane Allergies Allergies Allergy/AdvReac Type Severity Reaction Status Date / Time Penicillins Allergy Unknown Unknown Verified 02/11/21 13:22 adhesive tape AdvReac Intermediate itching Verified 02/11/21 13:22 and rash finasteride AdvReac Intermediate painful Verified 02/11/21 13:22 breast lisinopril AdvReac Mild cough Verified 02/11/21 13:22 cotton Allergy Intermediate itching Uncoded 02/11/21 13:22 Home Meds Home Medications Medication Instructions Recorded Confirmed albuterol sulfate 90 mcg/actuation 2 puff INHALATION Q4H PRN gm 06/16/19 02/11/21 aerosol inhaler Xarelto 20 mg PO QPM 10/09/20 02/11/21 diphenhydramine HCl [Benadryl] 25 mg PO QAM PRN 10/09/20 02/11/21 docusate sodium [Colace] 100 mg PO DAILY PRN 10/09/20 02/11/21 hydrocortisone 1 applic TOPICAL BID PRN 10/09/20 02/11/21 ketoconazole 1 applic TOPICAL BID PRN 10/09/20 02/11/21 multivitamin 1 tab PO QAM 10/09/20 02/11/21 rosuvastatin 20 mg PO HS 10/09/20 02/11/21 bumetanide 4 mg PO QPM 02/10/21 02/11/21 metolazone 2.5 mg PO Q2D PRN 02/10/21 02/11/21 terazosin 10 mg PO BID 02/10/21 02/11/21 Previous Rx's Medication Instructions Recorded potassium chloride 10 mEq 40 meq PO BID #300 cap 05/21/20 capsule,extended release sacubitril 97 mg-valsartan 103 mg 1 tab PO BID #180 tab 11/21/20 tablet carvedilol 25 mg tablet 25 mg PO BID #180 tab 11/28/20 metformin 1,000 mg tablet 1,000 mg PO BID #180 tab 12/05/20 magnesium oxide 400 mg (241.3 mg 400 mg PO QPM #90 tab 12/25/20 magnesium) tablet buspirone 15 mg tablet 7.5 mg PO BID #90 tab 01/06/21 Results & Data (ED) Vital Signs Vital Signs - 24 hr 02/11/21 14:53 Temperature 36.3 C L Temperature Source Temporal Artery Scan Pulse Rate 73 Pulse Rhythm Regular Pulse Strength Normal Respiratory Rate 18 Respiratory Effort / Characteristics Non-Labored Spontaneous Respiratory Depth Normal Respiratory Pattern Regular Blood Pressure 152/81 H Blood Pressure Mean 104 Blood Pressure Position Sitting Pulse Oximetry 95 Oxygen Delivery Method Room Air Sepsis Recent Fever Within 48 Hours No Sepsis New/Unexplained Change in Mental Status N/A Sepsis Action Taken by Nursing No Action Required Laboratory Data Result diagrams: 02/11/21 15:24 document embedded image 02/11/21 15:24 document embedded image Lab Results 02/11/21 Range/Units 15:24 WBC 4.55 L (4.8-10.8) K/uL RBC 3.67 L (4.7-6.1) M/uL Hgb 12.0 L (14.0-18.0) g/dL Hct 34.2 L (42-52) % MCV 93.2 (80-100) fL MCH 32.7 (25-34) pg MCHC 35.1 (32-36) g/dL RDW Std Deviation 43.4 (36.4-46.3) fL RDW Coeff of Cecilia 12.8 (11.5-14.5) % Plt Count 110 L (130-400) K/uL MPV 10.6 H (7.4-10.4) fL Immature Gran % (Auto) 0.2 % Neut % (Auto) 71.2 % Lymph % (Auto) 16.3 % [place] % (Auto) 7.0 % Eos % (Auto) 5.1 % Baso % (Auto) 0.2 % Neut # (Auto) 3.24 (1.4-6.5) K/uL Lymph # (Auto) 0.74 L (1.2-3.4) K/uL [place] # (Auto) 0.32 (0.11-0.59) K/uL Eos # (Auto) 0.23 (0-0.5) K/uL Baso # (Auto) 0.01 (0-0.2) K/uL Immature Gran # (Auto) 0.01 (0.00-0.02) K/uL Administered Medications Morphine Sulfate (Morphine Sulfate 4 Mg/Ml 1 Ml Carp\Vial) 2 mg IV Q15M PRN PRN Reason: Pain Stop: 02/25/21 15:04 Last Admin: 02/11/21 15:38 Dose: 2 mg Documented by: [id number] Discontinued Medications Ondansetron HCl (Ondansetron Inj 2 Mg/Ml 2 Ml Vial) 4 mg IV NOW STA Stop: 02/11/21 15:06 Last Admin: 02/11/21 15:38 Dose: 4 mg Documented by: [id number] Imaging Data Radiologist's Impression: Chest X-Ray 02/11/21 15:05 XR chest 1V portable CLINICAL HISTORY: Pain, radiating to the abdomen COMPARISON STUDY: 01/13/2021 FINDINGS: The heart remains enlarged. There is a left subclavian pacer/defibrillator. There is stable elevation/eventration right hemidiaphragm. There is no failure. There is no focal pulmonary consolidation. There are no pleural effusions. There is no free intraperitoneal air.[ IMPRESSION: 1. Stable cardiac enlargement. No active disease in the chest. Allergies Allergy/AdvReac Type Severity Reaction Status Date / Time Penicillins Allergy Unknown Unknown Verified 02/11/21 16:40 adhesive tape AdvReac Intermediate itching Verified 02/11/21 16:40 and rash finasteride AdvReac Intermediate painful Verified 02/11/21 16:41 breast lisinopril AdvReac Mild cough Verified 02/11/21 16:41 cotton Allergy Intermediate itching Uncoded 02/11/21 16:41 Home Medications Medication Instructions Recorded Confirmed Type albuterol sulfate 90 mcg/actuation 2 puff INHALATION Q4H PRN gm 06/16/19 02/11/21 History aerosol inhaler potassium chloride 10 mEq 40 meq PO BID #300 cap 05/21/20 02/11/21 Rx capsule,extended release Xarelto 20 mg PO QPM 10/09/20 02/11/21 History diphenhydramine HCl [Benadryl] 25 mg PO QAM PRN 10/09/20 02/11/21 History docusate sodium [Colace] 100 mg PO DAILY PRN 10/09/20 02/11/21 History hydrocortisone 1 applic TOPICAL BID PRN 10/09/20 02/11/21 History ketoconazole 1 applic TOPICAL BID PRN 10/09/20 02/11/21 History multivitamin 1 tab PO QAM 10/09/20 02/11/21 History rosuvastatin 20 mg PO HS 10/09/20 02/11/21 History sacubitril 97 mg-valsartan 103 mg 1 tab PO BID #180 tab 11/21/20 02/11/21 Rx tablet carvedilol 25 mg tablet 25 mg PO BID #180 tab 11/28/20 02/11/21 Rx metformin 1,000 mg tablet 1,000 mg PO BID #180 tab 12/05/20 02/11/21 Rx magnesium oxide 400 mg (241.3 mg 400 mg PO QPM #90 tab 12/25/20 02/11/21 Rx magnesium) tablet buspirone 15 mg tablet 7.5 mg PO BID #90 tab 01/06/21 02/11/21 Rx bumetanide 4 mg PO QPM 02/10/21 02/11/21 History metolazone 2.5 mg PO Q2D PRN 02/10/21 02/11/21 History terazosin 10 mg PO BID 02/10/21 02/11/21 History Patient History Medical History (Updated 02/11/21 @ 17:52 by Adri Lovell MD) Arthritis Basal cell carcinoma of skin of other part of trunk Bilateral edema of lower extremity 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 unsure of last check. placed after decision not to have CABG d/t ~[address] MILLER BPH (benign prostatic hyperplasia) CAD (coronary artery disease) Cataract RT/LEFT Chronic systolic CHF (congestive heart failure) Depression with anxiety Diabetes type 2, controlled NIDDM Hx of rheumatic fever Hx of scarlet fever Hypercholesterolemia Irregular heart beat Ischemic cardiomyopathy PVCs (premature ventricular contractions) Surgical History History of colonoscopy History of esophagogastroduodenoscopy (EGD) History of tonsillectomy History of tooth extraction S/P cardiac pacemaker procedure (~06/2020) Family History Unknown No problems noted. 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 Beliefs That Will Affect Care: None marital status: Current Living Situation: Spouse current occupational status: retired Feels Safe at Home: Yes Childhood Exposure to Second-Hand Smoke: Yes Dental Care, Regularly: Yes Assistive Devices: Cane Physical Exam Constitutional: WD/WN, vitals as above well developed, well nourished and + acute distress Eyes: cataract, left and right ENMT: external ear and nose normal, oropharynx normal Neck: trachea midline, no thyromegaly Respiratory: normal respiratory effort, lungs clear to auscultation normal respiratory effort Cardiovascular: Rate/Rhythm: + irregularly irregular Gastrointestinal (Abdomen): Percussion/Palpation: + abdomen tender and abdomen soft tenderness at Right groin with bulging, could not reducible, abdomen- soft, NT, ND , no distend Musculoskeletal: no cyanosis or clubbing, extremities motor strength 5/5 Skin: no rashes, warm and dry Neurologic: awake Psychiatric: Orientation: alert and oriented x 3 Results & Data ([facility]) Vital Signs (Past 12 Hours) Vital Signs Temp Pulse Resp BP Pulse Ox 02/11/21 16:30 83 14 128/89 02/11/21 16:29 18 94 02/11/21 16:11 81 16 94 02/11/21 16:00 81 15 143/85 H 93 02/11/21 14:53 36.3 C L 73 18 152/81 H 95 Laboratory Results Abnormal lab results 02/11/21 02/11/21 02/11/21 Range/Units 15:24 15:24 15:24 WBC 4.55 L (4.8-10.8) K/uL RBC 3.67 L (4.7-6.1) M/uL Hgb 12.0 L (14.0-18.0) g/dL Hct 34.2 L (42-52) % Plt Count 110 L (130-400) K/uL MPV 10.6 H (7.4-10.4) fL Lymph # (Auto) 0.74 L (1.2-3.4) K/uL PT 13.4 H (9.0-12.0) Seconds INR 1.4 H (0.9-1.1) BUN 34 H (7-18) mg/dl Creatinine 2.10 H (0.6-1.4) mg/dl Glucose 167 H (70-99) mg/dl Lactate (0.4-2.0) mmol/L Total Bilirubin 1.2 H (0.2-1) mg/dl 02/11/21 Range/Units 15:24 WBC (4.8-10.8) K/uL RBC (4.7-6.1) M/uL Hgb (14.0-18.0) g/dL Hct (42-52) % Plt Count (130-400) K/uL MPV (7.4-10.4) fL Lymph # (Auto) (1.2-3.4) K/uL PT (9.0-12.0) Seconds INR (0.9-1.1) BUN (7-18) mg/dl Creatinine (0.6-1.4) mg/dl Glucose (70-99) mg/dl Lactate 2.1 H* (0.4-2.0) mmol/L Total Bilirubin (0.2-1) mg/dl Diagnostic Findings CT SCAN OF THE ABDOMEN AND PELVIS WITHOUT CONTRAST CLINICAL HISTORY: right groin hernia into scrotum GROIN PAIN COMPARISON STUDY: No previous studies for comparison. TECHNIQUE: CT scan of the abdomen and pelvis was performed from the lung bases to the proximal femurs. Images are reviewed in the axial, sagittal, and coronal planes. IV contrast was not administered for this examination. A dose lowering technique was utilized adhering to the principles of ALARA. CT DOSE: 613.46 mGy.cm FINDINGS: Lower chest: There are coronary artery calcifications. Pacemaker is visualized. The heart is mildly enlarged. There is minor basilar atelectasis. Liver: The unenhanced liver is normal in size, contour, and attenuation. There is no intrahepatic biliary ductal dilatation. Gallbladder: Unremarkable. Spleen: Normal in size and attenuation. Pancreas: Unremarkable. Adrenal glands: There is mild low density adrenal gland thickening. Kidneys: There are multiple bilateral low-density renal masses consistent with cysts. There is no significant hydronephrosis. There is a nonspecific 5 mm hyperdense left renal focus, likely representing a hyperdense cyst although incompletely evaluated on this noncontrast study. Bowel: There are no transition zones to indicate bowel obstruction. There is a right inguinal hernia containing both small bowel loops as well as the appendix. There is mild infiltration of the mesenteric fat within the hernia sac. There is a right-sided hydrocele. There is no evidence of acute diverticulitis. Peritoneum: There is minimal free pelvic fluid. There is minimal increased density of the lower pelvic mesentery. There is no free intraperitoneal air. There is also a small fat-containing left inguinal hernia and small fat- containing umbilical hernia. Vasculature: Atheromatous changes are present within the mesenteric vessels aorta and iliac vessels. There is no evidence of aortic aneurysm. Adenopathy: None. Pelvic viscera: The prostate is enlarged. Skeletal structures: There are a few scattered sclerotic lesions statistically representing bone islands. Degenerative changes are present within the spine. IMPRESSION: 1. No evidence of bowel obstruction. No evidence of free air 2. Right inguinal hernia containing both small bowel loops as well as the appendix. There is infiltration of the mesenteric fat within the hernia sac. There is a right-sided hydrocele. 3. Small fat-containing left inguinal hernia and umbilical hernia 4. Small amount of free pelvic fluid. Minimal infiltration of the pelvic mesentery. 5. Prostatomegaly 6. Bilateral renal lesions likely representing a combination of cysts and hyperdense cysts.
[2021-02-11] MEDS ORDERED: CIPROFLOXACIN 400MG / 200ML D5W IV ONE (18:03)
--- NOTE | 2021-02-11 18:03 | History & Physical Bridge Note ---
Date of Service February 11, 2021 History & Physical Bridge Note I have examined the patient, reviewed the History & Physical and in the interval since the performance of the History & Physical I have noted the following changes of clinical significance: no changes noted
--- NOTE | 2021-02-11 18:06 | Anesthesiology Consultation ---
Date of Service February 11, 2021 Assessment & Plan Chart Review Chart Review: Acceptable Risk for Surgery and Patient NOT seen in Pre Admission Testing Consults Requested none ASA [id number] Proposed Anesthesia Anesthesia Type: MAC Anesthesia Line Insertion: Arterial line Additional Comments: covid test negative History Surgery Operation Date: 02/11/21 18:30 Proposed Procedures p Inguinal Hernia Repair - Adri Lovell MD Height/Weight Height: 6 ft Weight: 84.9 kg Allergies Allergy/AdvReac Type Severity Reaction Status Date / Time Penicillins Allergy Unknown Unknown Verified 02/11/21 16:40 adhesive tape AdvReac Intermediate itching Verified 02/11/21 16:40 and rash finasteride AdvReac Intermediate painful Verified 02/11/21 16:41 breast lisinopril AdvReac Mild cough Verified 02/11/21 16:41 cotton Allergy Intermediate itching Uncoded 02/11/21 16:41 Medications Home Medications Medication Instructions Recorded Confirmed Last Taken albuterol sulfate 90 mcg/actuation 2 puff INHALATION Q4H PRN gm 06/16/19 02/11/21 Unknown aerosol inhaler potassium chloride 10 mEq 40 meq PO BID #300 cap 05/21/20 02/11/21 12/31/20 capsule,extended release Xarelto 20 mg PO QPM 10/09/20 02/11/21 12/30/20 diphenhydramine HCl [Benadryl] 25 mg PO QAM PRN 10/09/20 02/11/21 12/31/20 docusate sodium [Colace] 100 mg PO DAILY PRN 10/09/20 02/11/21 Unknown hydrocortisone 1 applic TOPICAL BID PRN 10/09/20 02/11/21 Unknown ketoconazole 1 applic TOPICAL BID PRN 10/09/20 02/11/21 Unknown multivitamin 1 tab PO QAM 10/09/20 02/11/21 12/31/20 rosuvastatin 20 mg PO HS 10/09/20 02/11/21 12/31/20 sacubitril 97 mg-valsartan 103 mg 1 tab PO BID #180 tab 11/21/20 02/11/21 12/31/20 tablet carvedilol 25 mg tablet 25 mg PO BID #180 tab 11/28/20 02/11/21 12/31/20 metformin 1,000 mg tablet 1,000 mg PO BID #180 tab 12/05/20 02/11/21 12/31/20 magnesium oxide 400 mg (241.3 mg 400 mg PO QPM #90 tab 12/25/20 02/11/21 12/31/20 magnesium) tablet buspirone 15 mg tablet 7.5 mg PO BID #90 tab 01/06/21 02/11/21 Unknown bumetanide 4 mg PO QPM 02/10/21 02/11/21 Unknown metolazone 2.5 mg PO Q2D PRN 02/10/21 02/11/21 Unknown terazosin 10 mg PO BID 02/10/21 02/11/21 Unknown Active Medications Generic Name Dose Route Start Last Admin Trade Name Freq PRN Reason Stop Dose Admin Morphine Sulfate 2 mg 02/11/21 15:05 02/11/21 15:38 Morphine Sulfate 4 Mg/Ml 1 Ml Carp\Vial IV 02/25/21 15:04 2 mg Q15M PRN Administration Pain Past Medical History Medical History Arthritis Basal cell carcinoma of skin of other part of trunk Bilateral edema of lower extremity 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 unsure of last check. placed after decision not to have CABG d/t ~[address] MILLER BPH (benign prostatic hyperplasia) CAD (coronary artery disease) Cataract RT/LEFT Chronic systolic CHF (congestive heart failure) Depression with anxiety Diabetes type 2, controlled NIDDM Hx of rheumatic fever Hx of scarlet fever Hypercholesterolemia Irregular heart beat Ischemic cardiomyopathy PVCs (premature ventricular contractions) Exercise / Class Metabolic Activity III < 4 Walking/Shop/Light housework Past Family History Family History Unknown No problems noted. Father Diabetes Myocardial infarction Mother Myocardial infarction Other No family history of adverse response to anesthesia Denies family history of Ovarian cancer Prostate cancer Breast cancer Colorectal cancer Past Surgical History Surgical History History of colonoscopy History of esophagogastroduodenoscopy (EGD) History of tonsillectomy History of tooth extraction S/P cardiac pacemaker procedure (~06/2020) Past Anesthesia History No Hx of Anesthesia Complications and No Family Hx of Anesthesia Complications History of PONV No Hx of PONV and No Hx of Motion Sickness Social History Smoking Status: Never smoker Hx Alcohol Use: No Hx Substance Use: No substance use type: does not use Physical Exam Vital Signs Last Vital Signs Temp 36.3 C L 02/11/21 14:53 Pulse 83 02/11/21 16:30 Resp 14 02/11/21 16:30 BP 128/89 02/11/21 16:30 Pulse Ox 94 02/11/21 16:29 Testing Laboratory Results 02/11/21 15:24 02/11/21 15:24 PT 13.4 Seconds (9.0-12.0) H 02/11/21 15:24 INR 1.4 (0.9-1.1) H 02/11/21 15:24 APTT 30.1 Seconds (21.0-31.0) 02/11/21 15:24 Electrocardiogram Date: 02/11/21 V-Paced rhythm at 82;BiV pacer Chest X-Ray Date: 02/11/21 Findings: + NAD, + cardiomegaly, + atherosclerosis of thoracic aorta and + other (Left subclavian pacer/AICD) Echocardiogram Date: 01/22/21 EF: EF 25% RWMA: + akinetic (inferolat. wall) and + hypokinetic (severe HK inferior wall) Valvular Disease: + MR (mild) RV-mod. dilated w/ mildly decreased function TR-mod. severe pulm. HTN Cardiac Catheterization Date: 02/28/19 Location: severe disease
[2021-02-11] MEDS ORDERED: PROPOFOL IV EMULSION 10 MG/ML 20 ML VIAL IV ONE ×2 (18:19→20:22)
[2021-02-11] MEDS ORDERED: fentaNYL citrate 100 MCG/2 ML VIAL ONE (18:19)
[2021-02-11] MEDS ORDERED: KETAMINE 50 MG/5 ML SYRINGE ONE (18:20)
[2021-02-11] MEDS ORDERED: MIDAZOLAM HCL 1 MG/ML 2ML VIAL ONE (18:25)
[2021-02-11] MEDS ORDERED: CIPROFLOXACIN / D5W 400 MG/200 ML BAG IV STA (18:40)
[2021-02-11] MEDS ORDERED: BACITRACIN OINT 15 GM TUBE ONE (18:44)
[2021-02-11] MEDS ORDERED: BUPIVACAINE 0.5 % 5 MG/1 ML MPF 30ML VIAL ONE (18:45)
[2021-02-11] MEDS ORDERED: LIDOCAINE HCL 1% 20 ML VIAL ONE (18:45)
[2021-02-11] MEDS ORDERED: NALOXONE HCL 0.4 MG/1 ML VIAL/CARP IV PRN (19:26)
[2021-02-11] MEDS ORDERED: PROMETHAZINE HCL 12.5 MG in SODIUM CHLORIDE 0.9% 50 ML IV PRN (19:26)
[2021-02-11] MEDS ORDERED: ePHEDrine sulfate 50 MG/ML AMP IV PRN (19:26)
[2021-02-11] MEDS ORDERED: ONDANSETRON INJ 2 MG/ML 2 ML VIAL IV PRN ×2 (19:26→21:35)
[2021-02-11] MEDS ORDERED: ATROPINE SULFATE 0.1 MG/ML 10ML SYR IV PRN (19:26)
[2021-02-11] MEDS ORDERED: LABETALOL HCL IV 5 MG/ML 20ML IV PRN (19:26)
[2021-02-11] MEDS ORDERED: fentaNYL citrate 100 MCG/2 ML VIAL IV PRN (19:26)
[2021-02-11] MEDS ORDERED: FLUMAZENIL 0.1 MG/1 ML 10 ML VIAL IV PRN (19:26)
--- NOTE | 2021-02-11 20:09 | Post Operative Brief Note ---
Immediate Post Op Note v1 Date of Surgery February 11, 2021 Pre & Post Diagnosis Operation Date: 02/11/21 18:30 Pre-Op Diagnosis: Incarcerated Right Inguinal Hernia Post-Op Diagnosis: Incarcerated Right Inguinal Hernia I identified the patient and participated in the time-out.: Yes Procedure Operation Date: 02/11/21 18:30 Actual Procedures p Right Inguinal Hernia Repair with mesh(Right) - Adri Lovell MD Surgeon Adri Lovell MD Liner Installer surgical assist Estimated Blood Loss 10 Findings Consistent with Post-Op Diagnosis incarcerated right indirect inguinal hernia Fluids 700ml Specimens none Anesthesia Type Local Complications none Disposition Accompanied Patient To Recovery: Yes Disposition: Recovery Room Overlapping Procedure I was immediately available: during the entire case.
--- NOTE | 2021-02-11 20:52 | Anesthesiology Progress Note ---
Date of Service February 11, 2021 Anesthesia Post Procedure Vital Signs Vital Signs: Temp Pulse Pulse Resp BP BP Pulse Ox 02/11/21 20:45 36.3 C L 80 15 134/79 100 02/11/21 20:35 80 16 127/79 100 02/11/21 20:25 80 12 112/68 97 02/11/21 20:18 36.1 C L 80 12 118/70 98 02/11/21 18:01 36.7 C 87 18 134/80 96 02/11/21 16:30 83 14 128/89 02/11/21 16:29 18 94 02/11/21 16:11 81 16 94 02/11/21 16:00 81 15 143/85 H 93 02/11/21 14:53 36.3 C L 73 18 152/81 H 95 Pain Intensity Abdomen: Pain Intensity: 7 Transfer of Care Handoff Completed per policy Notes Mental Status: alert / awake / arousable Patient Amnestic to Procedure: Yes Nausea / Vomiting: adequately controlled Pain: adequately controlled Airway Patency, RR, SpO2: stable & adequate BP & HR: stable & adequate Hydration State: stable & adequate Anesthetic Complications: no major complications apparent
--- NOTE | 2021-02-11 21:12 | Operative Report (OR) ---
DATE OF OPERATION: 02/11/2021 PREOPERATIVE DIAGNOSIS: Incarcerated right inguinal hernia. POSTOPERATIVE DIAGNOSIS: Incarcerated right indirect inguinal hernia. OPERATION: Open repair of incarcerated right inguinal hernia with mesh. SURGEON: Adri Lovell MD. ANESTHESIA: Conscious sedation plus local. ESTIMATED BLOOD LOSS: About 10 mL. FINDINGS: Incarcerated right indirect inguinal hernia. COMPLICATIONS: None. INDICATIONS FOR THE PROCEDURE: This is a 80-year-old gentleman who presented to the ED with incarcerated right inguinal hernia and I recommended to do the open repair of incarcerated right inguinal hernia with possible mesh, possible bowel resection. I did talk to the patient and the patient's daughter about the benefit, the risk, alternate procedure. I indicated the risks may include but not limited to such as bleeding, infection, hernia recurrence, chronic pain, hematoma, seroma, complication related to mesh, myocardial infarction, DVT, stroke, and even and also we talked about based on the patient on Xarelto for his atrial fibrillation, the patient may have a higher chance to get bleeding. They understand. The patient signed informed consent and I answered all questions. DETAILS OF PROCEDURE: After we identified the patient and verified the procedure, we brought the patient to the OR, put the patient in the supine position. The patient received SCD on bilateral legs to prevent DVT. Also, patient received 400 mg of Cipro IV for prophylactic antibiotic. The patient received conscious sedation by the anesthesiology. The lower abdomen and pelvic area was prepped and draped in routine sterile fashion. After time-out, I injected local anesthesia by using 1% lidocaine mixed with 0.5% Marcaine on the right inguinal area. Then I made about a 4 cm incision on the right inguinal area, opened subcutaneous layer, reached the external oblique, opened the external oblique and we mobilized the cord structure and then we found the patient had incarcerated hernia. Once we mobilized the hernia sac and we opened the hernia neck, then we completely reduced all the hernia content back to the abdominal cavity. After we mobilized the hernia sac, we found the patient had indirect right inguinal hernia. So, we used the extra large plug to plug the hernia sac back to the abdominal cavity. We used 2-0 Prolene to close the hernia neck, tied the suture down and then we chose a 3 x 5 cm mesh. Reinforced the posterior wall, we used 2-0 Prolene, sutured the mesh to right inguinal ligament continuous running and another 2-0 Prolene suture mesh to conjoined tendon continuous running, 2 sutures met, together tied. The mesh seated nicely, no tension. Hemostasis was obtained, now I closed the external oblique by using 2-0 Vicryl continuous running, closed subcutaneous layer by using 2-0 Vicryl continuous running, closed skin by using 4-0 Vicryl continuous running. Then we put the dressing on. The patient tolerated the procedure well. All instrument, needle and sponge count were correct x2 at the end of the case. The patient was transferred to recovery room in stable condition. After the procedure, I did talk to the patient and the patient's daughter about the OR finding and the procedure we did, they understand. I attest to the content of the Intraoperative Record and any orders documented therein. Any exception s are noted below.
[2021-02-11] MEDS ORDERED: ROSUVASTATIN CALCIUM 20 MG TAB PO SCH (21:35)
[2021-02-11] MEDS ORDERED: MAGNESIUM OXIDE 400 MG TAB PO SCH (21:35)
[2021-02-11] MEDS ORDERED: diphenhydrAMINE Capsule 25 MG CAP PO PRN (21:35)
[2021-02-11] MEDS ORDERED: ALBUTEROL HFA 8 GM INHALER INH PRN (21:35)
[2021-02-11] MEDS ORDERED: KETOCONAZOLE 2% CR 15 GM TUBE PRN (21:35)
[2021-02-11] MEDS ORDERED: DOCUSATE SODIUM 100 MG CAP PO PRN (21:35)
[2021-02-11] MEDS ORDERED: oxyCODONE/ACETAMINOPHEN 5mg/325mg TAB PO PRN (21:35)
[2021-02-11] MEDS ORDERED: HYDROmorphone INJ 0.5 MG/0.5 ML SYR IV PRN (21:35)
[2021-02-11] MEDS ORDERED: BUMETANIDE 1 MG TAB PO SCH (21:35)
[2021-02-11] MEDS ORDERED: HYDROCORTISONE 2.5% CR 30 GM TUBE EXT PRN (21:35)
[2021-02-11] MEDS ORDERED: LACTATED RINGER'S 1,000 ML IV SCH (21:35)
[2021-02-11] MEDS ORDERED: metOLazone 2.5 MG TABLET PO PRN (21:35)
[2021-02-11] MEDS: TERAZOSIN HCL 5 MG CAP PO SCH (23:00)
[2021-02-11] MEDS: SACUBITRIL-VALSARTAN 97-103 MG TAB PO SCH (23:00)
[2021-02-11] MEDS: busPIRone 7.5 MG TAB PO SCH (23:02)
[2021-02-11] MEDS: carvediloL 25 MG TAB PO SCH (23:02)
[2021-02-11] MEDS: POTASSIUM CHLORIDE CRTAB 20 MEQ TABCR PO SCH (23:02)
[2021-02-12] MEDS ORDERED: CIPROFLOXACIN / D5W 400 MG/200 ML BAG IV SCH ×2 (06:00)
[2021-02-12 07:42] LABS: Hematocrit (blood only) 30.3 % (42-52); Hemoglobin 10.3 g/dL (14.0-18.0); Mean Corpuscular Hemoglobin 31.9 pg (25-34); Mean Corpuscular Volume 93.8 fL (80-100); RDW Coefficient of Variation 12.9 % (11.5-14.5); RDW Standard Deviation 44.6 fL (36.4-46.3); Red Blood Count 3.23 M/uL (4.7-6.1); White Blood Count 4.91 K/uL (4.8-10.8)
[2021-02-12] MEDS: POTASSIUM CHLORIDE CRTAB 20 MEQ TABCR PO SCH (07:53)
[2021-02-12] MEDS: carvediloL 25 MG TAB PO SCH (07:54)
[2021-02-12] MEDS: SACUBITRIL-VALSARTAN 97-103 MG TAB PO SCH (07:54)
[2021-02-12] MEDS: busPIRone 7.5 MG TAB PO SCH (07:54)
[2021-02-12] MEDS ORDERED: metFORMIN HCL 500 MG TAB PO SCH (08:00)
--- NOTE | 2021-02-12 08:02 | Hospitalist Consultation ---
Date of Consultation February 12, 2021 Assessment & Plan (1) Incarcerated right inguinal hernia: Postop day 1 status post right inguinal hernia repair with Dr. Lovell. Preop H&H EBL reported to be 10 cc. Repeat H&H today .01/20.3acute blood loss anemia from surgery and dilutional from IV fluids. Chest radiograph on admission without congestive changes. His volume status appears to be acceptable. Dry weight is 190 pounds. Stop IVF as taking adequate PO and to avoid overload. PT/OT ordered and patient who is 80 with multiple comorbidities to ensure safety and return home For DVT prophylaxis to be resumed at discretion of general surgery with his Xarelto as previously taking for his history of atrial fibrillation Lactic acid is 2.1 on admission and up to 3.0 on a.m. labs. This could be secondary to his Metformin therapy for his diabetes and would recommend holding this at discharge and following up with Dr. Washington for further discussion about other options for his diabetes. Per discussion with primary service we will repeat this lactic acid level at 2:00 this afternoon and if improving will plan for discharge (2) CAD (coronary artery disease): CAD/Ischemic Cardiomyopathy/Chronic Systolic CHF/HTN/HLD/afib. Dry Weight 190lb Class 2/[address] Mireles CABG recommended in the past and also [place] [facility] [place] systolic function [place] and since then patient has opted for m edical therapy. Maintained on Bumex 4mg daily, carvedilol 25mg BID, Entresto BID, rosuvastatin 20mg HS, Xarelto 20mg with metolazone 2.5mg daily as needed (med rec Q2D) Most recent echo similar to 05/12/2020 ECHO. s/p BiV ICD and s/p ablation. Stable at this time and would continue home medications Follow-up closely with heart failure clinic as previously enrolled (3) Chronic systolic CHF (congestive heart failure): As noted above (4) HTN, goal below 140/90: Blood pressures controlled Continue home medications (5) Ischemic cardiomyopathy: As noted above (6) Atrial fibrillation: Is ventricularly paced here Continue Xarelto if okay with surgery (7) Hypercholesterolemia: Continue rosuvastatin (8) Diabetes type 2, controlled: Last A1c 7.27 March 2020 Would hold metformin and discussed continuing to hold this at discharge and to follow-up with primary care about different agents that would be acceptable Diabetic, AHA diet BSG ACHS ISS while inpatient Would recommend repeating A1c as an outpatient as patient plans for discharge today Consider sulfonylurea although not ideal in renal failure patient. Versus GLP-1 which patient is not keen on. Could also consider renally dosed Januvia or Tradjenta (9) Depression with anxiety: Continue buspar 7.5mg BID (10) Biventricular ICD (implantable cardioverter-defibrillator) in place: (11) Prostatic hyperplasia: Continue terazosin 10mg BID No issues with urine retention here (12) DVT prophylaxis: SCDs Xarelto to be resumed at discretion of primary service Thank you for allowing hospitalist service to participate in the care of Mr. Benavides. Discussed case with primary service who plans for d/c this afternoon. Would hold metformin at discharge and f/u Dr Washington closely for further management/discussion. Follow up with PCP, general surgery, CHF clinic at d/c. Supervising Physician Co-Signing Physician Notes PA Supervision Note: I personally saw and examined the patient. I verified all aleman points and agree with ELIZABETH Flower with the following exceptions and/or additions: S-patient irritable that he is waiting to the afternoon for discharge. He de nies any chest pain or shortness of breath, no abdominal pains. He is eating and drinking. We reviewed that he should stop his Metformin for now given worsening renal function. History and ROS reviewed otherwise as above O- Vitals reviewed Gen: AAOx3, NAD HEENT: Anicteric sclerae, EOMI CV: RRR no mgr nl S1S2 Pulm: CTAB no wcr Abd: +BS soft NT ND no masses or hernias, dressing in place in the right inguinal region clean dry and intact Ext: No edema Skin: No rashes, warm/dry Neuro: Full strength throughout Preoperative EKG reviewed Laboratory values reviewed A/H-82-al[age]-old male with history noted as above here with incarcerated inguinal hernia requiring urgent surgical intervention. Doing very well postoperatively Stable for discharged home with plan outlined as above History of Present Illness Reason for Consultation: medical management Requesting Physician: Dr Lovell Attending Physician: Adri Lovell MD History of Present Illness 80-year-old male with past medical history of CAD class 2/3, chronic systolic heart failure, hypertension, HLD, ischemic cardiomyopathy status post biventricular pacemaker, atrial fibrillation, diabetes type 2 (no IDDM), depre ssion with anxiety, BPH presented to the emergency department after being seen by his primary care provider for a lump on his right groin which became painful and patient was unable to have a bowel movement. He was seen in the emergency department and found to have an incarcerated right inguinal hernia. He was taken to the operating room by Dr. Lovell for surgical repair. He states that since that time his abdominal pain is completely resolved no further nausea or vomiting reported. He denies passing gas but does not have abdominal pain but does have active bowel sounds. Has been eating and drinking without difficulty. Remains afebrile. He is at his baseline weight without heart failure symptoms at this time. No chest pain, fever, chills, shortness of breath, abdominal bloating or discomfort outside of incisional pain, or dysuria at this time. Discussed Metformin therapy and would hold this at discharge and follow-up with Dr. Washington for further recommendations. Allergies Allergy/AdvReac Type Severity Reaction Status Date / Time Penicillins Allergy Unknown Unknown Verified 02/11/21 16:40 adhesive tape AdvReac Intermediate itching Verified 02/11/21 16:40 and rash finasteride AdvReac Intermediate painful Verified 02/11/21 16:41 breast lisinopril AdvReac Mild cough Verified 02/11/21 16:41 cotton Allergy Intermediate itching Uncoded 02/11/21 16:41 Home Medications Medication Instructions Recorded Confirmed Type albuterol sulfate 90 mcg/actuation 2 puff INHALATION Q4H PRN gm 06/16/19 02/11/21 History aerosol inhaler potassium chloride 10 mEq 40 meq PO BID #300 cap 05/21/20 02/11/21 Rx capsule,extended release Xarelto 20 mg PO QPM 10/09/20 02/11/21 History diphenhydramine HCl [Benadryl] 25 mg PO QAM PRN 10/09/20 02/11/21 History docusate sodium [Colace] 100 mg PO DAILY PRN 10/09/20 02/11/21 History hydrocortisone 1 applic TOPICAL BID PRN 10/09/20 02/11/21 History ketoconazole 1 applic TOPICAL BID PRN 10/09/20 02/11/21 History multivitamin 1 tab PO QAM 10/09/20 02/11/21 History rosuvastatin 20 mg PO HS 10/09/20 02/11/21 History sacubitril 97 mg-valsartan 103 mg 1 tab PO BID #180 tab 11/21/20 02/11/21 Rx tablet carvedilol 25 mg tablet 25 mg PO BID #180 tab 11/28/20 02/11/21 Rx metformin 1,000 mg tablet 1,000 mg PO BID #180 tab 12/05/20 02/11/21 Rx magnesium oxide 400 mg (241.3 mg 400 mg PO QPM #90 tab 12/25/20 02/11/21 Rx magnesium) tablet buspirone 15 mg tablet 7.5 mg PO BID #90 tab 01/06/21 02/11/21 Rx bumetanide 4 mg PO QPM 02/10/21 02/11/21 History metolazone 2.5 mg PO Q2D PRN 02/10/21 02/11/21 History terazosin 10 mg PO BID 02/10/21 02/11/21 History Patient History Medical History Arthritis Basal cell carcinoma of skin of other part of trunk Bilateral edema of lower extremity 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 unsure of last check. placed after decision not to have CABG d/t ~[address] MILLER BPH (benign prostatic hyperplasia) CAD (coronary artery disease) Cataract RT/LEFT Chronic systolic CHF (congestive heart failure) Depression with anxiety Diabetes type 2, controlled NIDDM Hx of rheumatic fever Hx of scarlet fever Hypercholesterolemia Irregular heart beat Ischemic cardiomyopathy PVCs (premature ventricular contractions) Surgical History History of colonoscopy History of esophagogastroduodenoscopy (EGD) History of tonsillectomy History of tooth extraction S/P cardiac pacemaker procedure (~06/2020) Family History Unknown No problems noted. 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 Required: No Beliefs That Will Affect Care: None marital status: Current Living Situation: Spouse current occupational status: retired Feels Safe at Home: Yes Childhood Exposure to Second-Hand Smoke: Yes Dental Care, Regularly: Yes Assistive Devices: Cane Review of Systems Review of Systems: All systems reviewed & are unremarkable except as noted in HPI & below Physical Exam Constitutional: WD/WN, vitals as above cooperative and comfortable; no acute distress Eyes: + anicteric sclerae and PERRL ENMT: Ears: no hearing impairment Neck: normal visual inspection and trachea midline Respiratory: normal respiratory effort, lungs clear to auscultation Cardiovascular: RRR, no murmur, no edema Heart Sounds: + murmur Vessels: no JVD Extremities: no edema Gastrointestinal (Abdomen): normal bowel sounds, soft, nontender, no hepatosplenomegaly Musculoskeletal: no cyanosis or clubbing, extremities motor strength 5/5 Skin: no rashes, warm and dry (right groin dressing c/d/i. minimally tender around incision) Neurologic: patellar DTR's 2+ bilat, sensation intact and PERRL, EOMI, accommodation nl, no face palsy, no dysarthria Psychiatric: A+Ox3, euthymic affect Genitourinary: NO VAUGHN Lymphatic: no cervical or axillary lymphadenopathy Results & Data Results & Data ([facility]) Vital Signs (Past 12 Hours) Vital Signs Temp Pulse Pulse Pulse Resp BP Pulse Ox 02/12/21 07:26 36.9 C 86 16 106/61 95 02/12/21 07:18 62 02/12/21 04:28 36.9 C 78 16 110/63 97 02/12/21 00:00 103 H 02/11/21 22:52 36.4 C L 81 18 154/84 H 97 02/11/21 22:00 36.3 C L 81 18 131/77 100 02/11/21 21:00 80 16 135/84 100 02/11/21 20:45 36.3 C L 80 15 134/79 100 02/11/21 20:35 80 16 127/79 100 02/11/21 20:25 80 12 112/68 97 02/11/21 20:18 36.1 C L 80 12 118/70 98 Laboratory Results 02/12/21 02/12/21 02/12/21 Range/Units 08:59 08:59 07:34 WBC (4.8-10.8) K/uL RBC (4.7-6.1) M/uL Hgb (14.0-18.0) g/dL Hct (42-52) % MCV (80-100) fL MCH (25-34) pg MCHC (32-36) g/dL RDW Std Deviation (36.4-46.3) fL RDW Coeff of Cecilia (11.5-14.5) % Plt Count (130-400) K/uL MPV (7.4-10.4) fL Immature Gran % (Auto) % Neut % (Auto) % Lymph % (Auto) % [place] % (Auto) % Eos % (Auto) % Baso % (Auto) % Neut # (Auto) (1.4-6.5) K/uL Lymph # (Auto) (1.2-3.4) K/uL [place] # (Auto) (0.11-0.59) K/uL Eos # (Auto) (0-0.5) K/uL Baso # (Auto) (0-0.2) K/uL Immature Gran # (Auto) (0.00-0.02) K/uL Platelet Estimate (Normal) PT (9.0-12.0) Seconds INR (0.9-1.1) APTT (21.0-31.0) Seconds PTT Ratio Sodium 137 (136-145) mmol/L Potassium 3.6 (3.5-5.1) mmol/L Chloride 100 (98-107) mmol/L Carbon Dioxide 29 (21-32) mmol/L Anion Gap 8.0 (3-11) BUN 29 H (7-18) mg/dl Creatinine 2.16 H (0.6-1.4) mg/dl Est Cr Clr Drug Dosing 30.9 Est GFR ( Amer) 32.8 Est GFR (Non-Af Amer) 28.3 BUN/Creatinine Ratio 13.3 (10-20) Glucose 195 H (70-99) mg/dl POC Glucose 145 H (70-99) mg/dl Lactate 3.0 H* (0.4-2.0) mmol/L Calcium 9.3 (8.5-10.1) mg/dl Total Bilirubin 0.9 (0.2-1) mg/dl AST 21 (15-37) U/L ALT 20 (12-78) U/L Alkaline Phosphatase 103 (45-117) U/L Total Protein 6.4 (6.4-8.2) gm/dl Albumin 3.6 (3.4-5.0) gm/dl Globulin 2.8 (2.5-4.0) gm/dl Albumin/Globulin Ratio 1.3 (0.9-2) Lipase (73-393) U/L COVID-19 Eval Order SARS-CoV-2 (PCR) (Negative) Influenza Type A (PCR) (Neg) Influenza Type B (PCR) (Neg) RSV (RT-PCR) (Neg) 02/12/21 02/12/21 02/11/21 Range/Units 07:16 07:16 20:21 WBC 4.91 (4.8-10.8) K/uL RBC 3.23 L (4.7-6.1) M/uL Hgb 10.3 L (14.0-18.0) g/dL Hct 30.3 L (42-52) % MCV 93.8 (80-100) fL MCH 31.9 (25-34) pg MCHC 34.0 (32-36) g/dL RDW Std Deviation 44.6 (36.4-46.3) fL RDW Coeff of Cecilia 12.9 (11.5-14.5) % Plt Count 97 L (130-400) K/uL MPV 10.3 (7.4-10.4) fL Immature Gran % (Auto) 0.0 % Neut % (Auto) 66.2 % Lymph % (Auto) 15.3 % [place] % (Auto) 12.2 % Eos % (Auto) 6.1 % Baso % (Auto) 0.2 % Neut # (Auto) 3.25 (1.4-6.5) K/uL Lymph # (Auto) 0.75 L (1.2-3.4) K/uL [place] # (Auto) 0.60 H (0.11-0.59) K/uL Eos # (Auto) 0.30 (0-0.5) K/uL Baso # (Auto) 0.01 (0-0.2) K/uL Immature Gran # (Auto) 0.00 (0.00-0.02) K/uL Platelet Estimate Decreased L (Normal) PT (9.0-12.0) Seconds INR (0.9-1.1) APTT (21.0-31.0) Seconds PTT Ratio Sodium (136-145) mmol/L Potassium (3.5-5.1) mmol/L Chloride (98-107) mmol/L Carbon Dioxide (21-32) mmol/L Anion Gap (3-11) BUN (7-18) mg/dl Creatinine 1.92 H (0.6-1.4) mg/dl Est Cr Clr Drug Dosing 34.8 Est GFR ( Amer) 37.8 Est GFR (Non-Af Amer) 32.6 BUN/Creatinine Ratio (10-20) Glucose (70-99) mg/dl POC Glucose 118 H (70-99) mg/dl Lactate (0.4-2.0) mmol/L Calcium (8.5-10.1) mg/dl Total Bilirubin (0.2-1) mg/dl AST (15-37) U/L ALT (12-78) U/L Alkaline Phosphatase (45-117) U/L Total Protein (6.4-8.2) gm/dl Albumin (3.4-5.0) gm/dl Globulin (2.5-4.0) gm/dl Albumin/Globulin Ratio (0.9-2) Lipase (73-393) U/L COVID-19 Eval Order SARS-CoV-2 (PCR) (Negative) Influenza Type A (PCR) (Neg) Influenza Type B (PCR) (Neg) RSV (RT-PCR) (Neg) 02/11/21 02/11/21 02/11/21 Range/Units 15:40 15:40 15:24 WBC (4.8-10.8) K/uL RBC (4.7-6.1) M/uL Hgb (14.0-18.0) g/dL Hct (42-52) % MCV (80-100) fL MCH (25-34) pg MCHC (32-36) g/dL RDW Std Deviation (36.4-46.3) fL RDW Coeff of Cecilia (11.5-14.5) % Plt Count (130-400) K/uL MPV (7.4-10.4) fL Immature Gran % (Auto) % Neut % (Auto) % Lymph % (Auto) % [place] % (Auto) % Eos % (Auto) % Baso % (Auto) % Neut # (Auto) (1.4-6.5) K/uL Lymph # (Auto) (1.2-3.4) K/uL [place] # (Auto) (0.11-0.59) K/uL Eos # (Auto) (0-0.5) K/uL Baso # (Auto) (0-0.2) K/uL Immature Gran # (Auto) (0.00-0.02) K/uL Platelet Estimate (Normal) PT (9.0-12.0) Seconds INR (0.9-1.1) APTT (21.0-31.0) Seconds PTT Ratio Sodium (136-145) mmol/L Potassium (3.5-5.1) mmol/L Chloride (98-107) mmol/L Carbon Dioxide (21-32) mmol/L Anion Gap (3-11) BUN (7-18) mg/dl Creatinine (0.6-1.4) mg/dl Est Cr Clr Drug Dosing Est GFR ( Amer) Est GFR (Non-Af Amer) BUN/Creatinine Ratio (10-20) Glucose (70-99) mg/dl POC Glucose (70-99) mg/dl Lactate 2.1 H* (0.4-2.0) mmol/L Calcium (8.5-10.1) mg/dl Total Bilirubin (0.2-1) mg/dl AST (15-37) U/L ALT (12-78) U/L Alkaline Phosphatase (45-117) U/L Total Protein (6.4-8.2) gm/dl Albumin (3.4-5.0) gm/dl Globulin (2.5-4.0) gm/dl Albumin/Globulin Ratio (0.9-2) Lipase (73-393) U/L COVID-19 Eval Order CovFluRsv at [facility] SARS-CoV-2 (PCR) NEGATIVE (Negative) Influenza Type A (PCR) Negative (Neg) Influenza Type B (PCR) Negative (Neg) RSV (RT-PCR) Negative (Neg) 02/11/21 02/11/21 02/11/21 Range/Units 15:24 15:24 15:24 WBC 4.55 L (4.8-10.8) K/uL RBC 3.67 L (4.7-6.1) M/uL Hgb 12.0 L (14.0-18.0) g/dL Hct 34.2 L (42-52) % MCV 93.2 (80-100) fL MCH 32.7 (25-34) pg MCHC 35.1 (32-36) g/dL RDW Std Deviation 43.4 (36.4-46.3) fL RDW Coeff of Cecilia 12.8 (11.5-14.5) % Plt Count 110 L (130-400) K/uL MPV 10.6 H (7.4-10.4) fL Immature Gran % (Auto) 0.2 % Neut % (Auto) 71.2 % Lymph % (Auto) 16.3 % [place] % (Auto) 7.0 % Eos % (Auto) 5.1 % Baso % (Auto) 0.2 % Neut # (Auto) 3.24 (1.4-6.5) K/uL Lymph # (Auto) 0.74 L (1.2-3.4) K/uL [place] # (Auto) 0.32 (0.11-0.59) K/uL Eos # (Auto) 0.23 (0-0.5) K/uL Baso # (Auto) 0.01 (0-0.2) K/uL Immature Gran # (Auto) 0.01 (0.00-0.02) K/uL Platelet Estimate (Normal) PT 13.4 H (9.0-12.0) Seconds INR 1.4 H (0.9-1.1) APTT 30.1 (21.0-31.0) Seconds PTT Ratio 1.1 Sodium 137 (136-145) mmol/L Potassium 4.0 (3.5-5.1) mmol/L Chloride 101 (98-107) mmol/L Carbon Dioxide 30 (21-32) mmol/L Anion Gap 7.0 (3-11) BUN 34 H (7-18) mg/dl Creatinine 2.10 H (0.6-1.4) mg/dl Est Cr Clr Drug Dosing Not Reportable Est GFR ( Amer) 33.9 Est GFR (Non-Af Amer) 29.3 BUN/Creatinine Ratio 16.1 (10-20) Glucose 167 H (70-99) mg/dl POC Glucose (70-99) mg/dl Lactate (0.4-2.0) mmol/L Calcium 10.0 (8.5-10.1) mg/dl Total Bilirubin 1.2 H (0.2-1) mg/dl AST 28 (15-37) U/L ALT 24 (12-78) U/L Alkaline Phosphatase 117 (45-117) U/L Total Protein 7.4 (6.4-8.2) gm/dl Albumin 4.3 (3.4-5.0) gm/dl Globulin 3.1 (2.5-4.0) gm/dl Albumin/Globulin Ratio 1.4 (0.9-2) Lipase 157 (73-393) U/L COVID-19 Eval Order SARS-CoV-2 (PCR) (Negative) Influenza Type A (PCR) (Neg) Influenza Type B (PCR) (Neg) RSV (RT-PCR) (Neg) Diagnostic Findings XR chest 1V portable CLINICAL HISTORY: Pain, radiating to the abdomen COMPARISON STUDY: 01/13/2021 FINDINGS: The heart remains enlarged. There is a left subclavian pacer/defibrillator. There is stable elevation/eventration right hemidiaphragm. There is no failure. There is no focal pulmonary consolidation. There are no pleural effusions. There is no free intraperitoneal air.[ IMPRESSION: 1. Stable cardiac enlargement. No active disease in the chest. CT SCAN OF THE ABDOMEN AND PELVIS WITHOUT CONTRAST CLINICAL HISTORY: right groin hernia into scrotum GROIN PAIN COMPARISON STUDY: No previous studies for comparison. TECHNIQUE: CT scan of the abdomen and pelvis was performed from the lung bases to the proximal femurs. Images are reviewed in the axial, sagittal, and coronal planes. IV contrast was not administered for this examination. A dose lowering technique was utilized adhering to the principles of ALARA. CT DOSE: 613.46 mGy.cm FINDINGS: Lower chest: There are coronary artery calcifications. Pacemaker is visualized. The heart is mildly enlarged. There is minor basilar atelectasis. Liver: The unenhanced liver is normal in size, contour, and attenuation. There is no intrahepatic biliary ductal dilatation. Gallbladder: Unremarkable. Spleen: Normal in size and attenuation. Pancreas: Unremarkable. Adrenal glands: There is mild low density adrenal gland thickening. Kidneys: There are multiple bilateral low-density renal masses consistent with cysts. There is no significant hydronephrosis. There is a nonspecific 5 mm hyperdense left renal focus, likely representing a hyperdense cyst although incompletely evaluated on this noncontrast study. Bowel: There are no transition zones to indicate bowel obstruction. There is a right inguinal hernia containing both small bowel loops as well as the appendix. There is mild infiltration of the mesenteric fat within the hernia sac. There is a right-sided hydrocele. There is no evidence of acute diverticulitis. Peritoneum: There is minimal free pelvic fluid. There is minimal increased density of the lower pelvic mesentery. There is no free intraperitoneal air. There is also a small fat-containing left inguinal hernia and small fat- containing umbilical hernia. Vasculature: Atheromatous changes are present within the mesenteric vessels aorta and iliac vessels. There is no evidence of aortic aneurysm. Adenopathy: None. Pelvic viscera: The prostate is enlarged. Skeletal structures: There are a few scattered sclerotic lesions statistically representing bone islands. Degenerative changes are present within the spine. IMPRESSION: 1. No evidence of bowel obstruction. No evidence of free air 2. Right inguinal hernia containing both small bowel loops as well as the appendix. There is infiltration of the mesenteric fat within the hernia sac. There is a right-sided hydrocele. 3. Small fat-containing left inguinal hernia and umbilical hernia 4. Small amount of free pelvic fluid. Minimal infiltration of the pelvic mesentery. 5. Prostatomegaly 6. Bilateral renal lesions likely representing a combination of cysts and hyperdense cysts. PG Care Time/CCT Total # of Minutes Spent Total Time Spent with Patient: Total time spent is greater than 50% in coordination of care (as documented) at patient's floor/unit and/or counseling patient: Coding Level of Care Code 39635 Inpt Consult Level 3 Diagnoses Incarcerated right inguinal hernia K40.30 CAD (coronary artery disease) I25.10 Chronic systolic CHF (congestive heart failure) I50.22 HTN, goal below 140/90 I10 Ischemic cardiomyopathy I25.5 Atrial fibrillation I48.91 Hypercholesterolemia E78.00 Diabetes type 2, controlled E11.9 Depression with anxiety F41.8 Biventricular ICD (implantable cardioverter-defibrillator) in place Z95.810 Prostatic hyperplasia N40.0 DVT prophylaxis Z29.9
[2021-02-12 08:11] LABS: Creatinine Clr Calc Pharmacy 34.8 ml/min; Est GFR (African American) 37.8; Est GFR (Non-African American) 32.6
[2021-02-12] MEDS ORDERED: GLUCOSE 40% GEL 15 GM TUBE PO PRN (08:13)
[2021-02-12] MEDS ORDERED: CARBOHYDRATES FOR HYPOGLYCEMIA PO PRN (08:13)
[2021-02-12] MEDS ORDERED: GLUCOSE 10 TABS/TUBE PO PRN (08:13)
[2021-02-12] MEDS ORDERED: GLUCAGON FOR INJ 1 MG VIAL SQ PRN (08:13)
[2021-02-12] MEDS ORDERED: DEXTROSE 50% 50 ML SYRINGE IV PRN (08:13)
[2021-02-12 08:18] LABS: Mean Platelet Volume 10.3 fL (7.4-10.4); Platelet Count 97 K/uL (130-400)
[2021-02-12 08:19] LABS: Basophils # (auto) 0.01 K/uL (0-0.2); Basophils % (auto) 0.2 %; Eosinophils % (auto) 6.1 %; Lymphocytes # (auto) 0.75 K/uL (1.2-3.4); Lymphocytes % (auto) 15.3 %; Monocytes % (auto) 12.2 %; Neutrophils # (auto) 3.25 K/uL (1.4-6.5); Neutrophils % (auto) 66.2 %; Platelet Estimate Decreased (Normal)
[2021-02-12] MEDS ORDERED: ACETAMINOPHEN 325 MG TAB PO PRN (08:44)
[2021-02-12] MEDS ORDERED: MULTIVITAMIN TAB PO SCH (09:00)
[2021-02-12 09:44] LABS: Albumin Level 3.6 gm/dl (3.4-5.0); BUN Creatinine Ratio 13.3 (10-20); Calcium 9.3 mg/dl (8.5-10.1); Creatinine Clr Calc Pharmacy 30.9 ml/min; Est GFR (African American) 32.8; Est GFR (Non-African American) 28.3; Potassium 3.6 mmol/L (3.5-5.1)
[2021-02-12 09:46] LABS: Albumin Globulin Ratio 1.3 (0.9-2); Bilirubin,Total 0.9 mg/dl (0.2-1); Globulin 2.8 gm/dl (2.5-4.0); Total Protein 6.4 gm/dl (6.4-8.2)
--- NOTE | 2021-02-12 09:58 | Surgery Progress Note ---
Date of Service February 12, 2021 Assessment & Plan (1) Incarcerated right inguinal hernia: POD # 1 s/p open right inguinal hernia repair with mesh for incarcerated hernia containing small bowel. - avss - increase in lactic acid 3.0 today (2.1 preop), secondary to dehydration? - Creatinine 2.1 (2.1 preop) 1.5-2.0 baseline in last few months Plan: Continue IV fluids for now repeat lactic acid at 2 pm Continue heart healthy diet Continue pain management as needed await medicine consultation and recommendations Patient really wants to go home today, discussed elevated lactic acid and wanting to repeat this afternoon to ensure stability. Patient agreed. Will re- evaluate this afternoon. Dr. Lovell has seen patient and agrees with above. Admission and Anticipated Discharge Date Admission Date: February 11, 2021 Subjective feeling good minimal pain at incision site/right groin no nausea or vomiting no abdominal pain tolerated diet this am urinated without difficulty Physical Exam Constitutional: WD/WN, vitals as above Respiratory: normal respiratory effort; no respiratory distress and no labored breathing Gastrointestinal (Abdomen): Inspection/Auscultation: abdomen normal to inspection; abdomen not distended Percussion/Palpation: abdomen soft; abdomen nontender, no guarding and abdomen not rigid Right groin with dressing in place, clean and dry. Did not remove. No tenderness on palpation Skin: no rashes, warm and dry Psychiatric: A+Ox3, euthymic affect Results & Data ([facility]) Vital Signs (Past 12 Hours) Vital Signs Temp Pulse Pulse Resp BP Pulse Ox 02/12/21 07:26 36.9 C 86 16 106/61 95 02/12/21 07:18 62 02/12/21 04:28 36.9 C 78 16 110/63 97 02/12/21 00:00 103 H 02/11/21 22:52 36.4 C L 81 18 154/84 H 97 02/11/21 22:00 36.3 C L 81 18 131/77 100 Laboratory Results 02/12/21 02/12/21 02/12/21 Range/Units 08:59 08:59 07:34 WBC (4.8-10.8) K/uL RBC (4.7-6.1) M/uL Hgb (14.0-18.0) g/dL Hct (42-52) % MCV (80-100) fL MCH (25-34) pg MCHC (32-36) g/dL RDW Std Deviation (36.4-46.3) fL RDW Coeff of Cecilia (11.5-14.5) % Plt Count (130-400) K/uL MPV (7.4-10.4) fL Immature Gran % (Auto) % Neut % (Auto) % Lymph % (Auto) % Howard % (Auto) % Eos % (Auto) % Baso % (Auto) % Neut # (Auto) (1.4-6.5) K/uL Lymph # (Auto) (1.2-3.4) K/uL Howard # (Auto) (0.11-0.59) K/uL Eos # (Auto) (0-0.5) K/uL Baso # (Auto) (0-0.2) K/uL Immature Gran # (Auto) (0.00-0.02) K/uL Platelet Estimate (Normal) PT (9.0-12.0) Seconds INR (0.9-1.1) APTT (21.0-31.0) Seconds PTT Ratio Sodium 137 (136-145) mmol/L Potassium 3.6 (3.5-5.1) mmol/L Chloride 100 (98-107) mmol/L Carbon Dioxide 29 (21-32) mmol/L Anion Gap 8.0 (3-11) BUN 29 H (7-18) mg/dl Creatinine 2.16 H (0.6-1.4) mg/dl Est Cr Clr Drug Dosing 30.9 Est GFR ( Amer) 32.8 Est GFR (Non-Af Amer) 28.3 BUN/Creatinine Ratio 13.3 (10-20) Glucose 195 H (70-99) mg/dl POC Glucose 145 H (70-99) mg/dl Lactate 3.0 H* (0.4-2.0) mmol/L Calcium 9.3 (8.5-10.1) mg/dl Total Bilirubin 0.9 (0.2-1) mg/dl AST 21 (15-37) U/L ALT 20 (12-78) U/L Alkaline Phosphatase 103 (45-117) U/L Total Protein 6.4 (6.4-8.2) gm/dl Albumin 3.6 (3.4-5.0) gm/dl Globulin 2.8 (2.5-4.0) gm/dl Albumin/Globulin Ratio 1.3 (0.9-2) Lipase (73-393) U/L COVID-19 Eval Order SARS-CoV-2 (PCR) (Negative) Influenza Type A (PCR) (Neg) Influenza Type B (PCR) (Neg) RSV (RT-PCR) (Neg) 02/12/21 02/12/21 02/11/21 Range/Units 07:16 07:16 20:21 WBC 4.91 (4.8-10.8) K/uL RBC 3.23 L (4.7-6.1) M/uL Hgb 10.3 L (14.0-18.0) g/dL Hct 30.3 L (42-52) % MCV 93.8 (80-100) fL MCH 31.9 (25-34) pg MCHC 34.0 (32-36) g/dL RDW Std Deviation 44.6 (36.4-46.3) fL RDW Coeff of Cecilia 12.9 (11.5-14.5) % Plt Count 97 L (130-400) K/uL MPV 10.3 (7.4-10.4) fL Immature Gran % (Auto) 0.0 % Neut % (Auto) 66.2 % Lymph % (Auto) 15.3 % Howard % (Auto) 12.2 % Eos % (Auto) 6.1 % Baso % (Auto) 0.2 % Neut # (Auto) 3.25 (1.4-6.5) K/uL Lymph # (Auto) 0.75 L (1.2-3.4) K/uL Howard # (Auto) 0.60 H (0.11-0.59) K/uL Eos # (Auto) 0.30 (0-0.5) K/uL Baso # (Auto) 0.01 (0-0.2) K/uL Immature Gran # (Auto) 0.00 (0.00-0.02) K/uL Platelet Estimate Decreased L (Normal) PT (9.0-12.0) Seconds INR (0.9-1.1) APTT (21.0-31.0) Seconds PTT Ratio Sodium (136-145) mmol/L Potassium (3.5-5.1) mmol/L Chloride (98-107) mmol/L Carbon Dioxide (21-32) mmol/L Anion Gap (3-11) BUN (7-18) mg/dl Creatinine 1.92 H (0.6-1.4) mg/dl Est Cr Clr Drug Dosing 34.8 Est GFR ( Amer) 37.8 Est GFR (Non-Af Amer) 32.6 BUN/Creatinine Ratio (10-20) Glucose (70-99) mg/dl POC Glucose 118 H (70-99) mg/dl Lactate (0.4-2.0) mmol/L Calcium (8.5-10.1) mg/dl Total Bilirubin (0.2-1) mg/dl AST (15-37) U/L ALT (12-78) U/L Alkaline Phosphatase (45-117) U/L Total Protein (6.4-8.2) gm/dl Albumin (3.4-5.0) gm/dl Globulin (2.5-4.0) gm/dl Albumin/Globulin Ratio (0.9-2) Lipase (73-393) U/L COVID-19 Eval Order SARS-CoV-2 (PCR) (Negative) Influenza Type A (PCR) (Neg) Influenza Type B (PCR) (Neg) RSV (RT-PCR) (Neg) 02/11/21 02/11/21 02/11/21 Range/Units 15:40 15:40 15:24 WBC (4.8-10.8) K/uL RBC (4.7-6.1) M/uL Hgb (14.0-18.0) g/dL Hct (42-52) % MCV (80-100) fL MCH (25-34) pg MCHC (32-36) g/dL RDW Std Deviation (36.4-46.3) fL RDW Coeff of Cecilia (11.5-14.5) % Plt Count (130-400) K/uL MPV (7.4-10.4) fL Immature Gran % (Auto) % Neut % (Auto) % Lymph % (Auto) % Howard % (Auto) % Eos % (Auto) % Baso % (Auto) % Neut # (Auto) (1.4-6.5) K/uL Lymph # (Auto) (1.2-3.4) K/uL Howard # (Auto) (0.11-0.59) K/uL Eos # (Auto) (0-0.5) K/uL Baso # (Auto) (0-0.2) K/uL Immature Gran # (Auto) (0.00-0.02) K/uL Platelet Estimate (Normal) PT (9.0-12.0) Seconds INR (0.9-1.1) APTT (21.0-31.0) Seconds PTT Ratio Sodium (136-145) mmol/L Potassium (3.5-5.1) mmol/L Chloride (98-107) mmol/L Carbon Dioxide (21-32) mmol/L Anion Gap (3-11) BUN (7-18) mg/dl Creatinine (0.6-1.4) mg/dl Est Cr Clr Drug Dosing Est GFR ( Amer) Est GFR (Non-Af Amer) BUN/Creatinine Ratio (10-20) Glucose (70-99) mg/dl POC Glucose (70-99) mg/dl Lactate 2.1 H* (0.4-2.0) mmol/L Calcium (8.5-10.1) mg/dl Total Bilirubin (0.2-1) mg/dl AST (15-37) U/L ALT (12-78) U/L Alkaline Phosphatase (45-117) U/L Total Protein (6.4-8.2) gm/dl Albumin (3.4-5.0) gm/dl Globulin (2.5-4.0) gm/dl Albumin/Globulin Ratio (0.9-2) Lipase (73-393) U/L COVID-19 Eval Order CovFluRsv at [facility] SARS-CoV-2 (PCR) NEGATIVE (Negative) Influenza Type A (PCR) Negative (Neg) Influenza Type B (PCR) Negative (Neg) RSV (RT-PCR) Negative (Neg) 02/11/21 02/11/21 02/11/21 Range/Units 15:24 15:24 15:24 WBC 4.55 L (4.8-10.8) K/uL RBC 3.67 L (4.7-6.1) M/uL Hgb 12.0 L (14.0-18.0) g/dL Hct 34.2 L (42-52) % MCV 93.2 (80-100) fL MCH 32.7 (25-34) pg MCHC 35.1 (32-36) g/dL RDW Std Deviation 43.4 (36.4-46.3) fL RDW Coeff of Cecilia 12.8 (11.5-14.5) % Plt Count 110 L (130-400) K/uL MPV 10.6 H (7.4-10.4) fL Immature Gran % (Auto) 0.2 % Neut % (Auto) 71.2 % Lymph % (Auto) 16.3 % Howard % (Auto) 7.0 % Eos % (Auto) 5.1 % Baso % (Auto) 0.2 % Neut # (Auto) 3.24 (1.4-6.5) K/uL Lymph # (Auto) 0.74 L (1.2-3.4) K/uL Howard # (Auto) 0.32 (0.11-0.59) K/uL Eos # (Auto) 0.23 (0-0.5) K/uL Baso # (Auto) 0.01 (0-0.2) K/uL Immature Gran # (Auto) 0.01 (0.00-0.02) K/uL Platelet Estimate (Normal) PT 13.4 H (9.0-12.0) Seconds INR 1.4 H (0.9-1.1) APTT 30.1 (21.0-31.0) Seconds PTT Ratio 1.1 Sodium 137 (136-145) mmol/L Potassium 4.0 (3.5-5.1) mmol/L Chloride 101 (98-107) mmol/L Carbon Dioxide 30 (21-32) mmol/L Anion Gap 7.0 (3-11) BUN 34 H (7-18) mg/dl Creatinine 2.10 H (0.6-1.4) mg/dl Est Cr Clr Drug Dosing Not Reportable Est GFR ( Amer) 33.9 Est GFR (Non-Af Amer) 29.3 BUN/Creatinine Ratio 16.1 (10-20) Glucose 167 H (70-99) mg/dl POC Glucose (70-99) mg/dl Lactate (0.4-2.0) mmol/L Calcium 10.0 (8.5-10.1) mg/dl Total Bilirubin 1.2 H (0.2-1) mg/dl AST 28 (15-37) U/L ALT 24 (12-78) U/L Alkaline Phosphatase 117 (45-117) U/L Total Protein 7.4 (6.4-8.2) gm/dl Albumin 4.3 (3.4-5.0) gm/dl Globulin 3.1 (2.5-4.0) gm/dl Albumin/Globulin Ratio 1.4 (0.9-2) Lipase 157 (73-393) U/L COVID-19 Eval Order SARS-CoV-2 (PCR) (Negative) Influenza Type A (PCR) (Neg) Influenza Type B (PCR) (Neg) RSV (RT-PCR) (Neg)
[2021-02-12] MEDS: TERAZOSIN HCL 5 MG CAP PO SCH (10:22)
[2021-02-12] MEDS ORDERED: INSULIN ASPART 100 UNITS/ML 3 ML PEN SC SCH (11:30)
[2021-02-12] MEDS ORDERED: BUMETANIDE 1 MG TAB PO SCH (15:00)
--- NOTE | 2021-02-13 13:23 | Discharge Summary ---
Date of Service February 13, 2021 Admission HPI Per Admitting Provider Patient is a 80-year-old male who initially, thought he was constipated. He started taking some Metamucil and Colace. Patient states that yesterday, he noticed some pain in the right groin. Today, he had a large bowel movement and felt no better. He had increased pain in the right groin and felt a lump. Patient went to his doctor's office and was referred to the ED. The patient describes the pain earlier today in the groin as a 10/10. He has had some nausea no vomiting. No fever. He is still making urine. There has been no cough or congestion or shortness of breath. Patient states that the pain is less now at a 5 although, if the area is touched, it becomes a 10. The patient has a history of A. fib. He is on Xarelto.last dose was taken yesterday. I ( Adri Lovell mD ) got a call for consult incarcerated right inguinal hernia, I reviewed pt's H/P, labs, CT scan with pt and his daughter. pt is still have significant pain on right groin area with bulging, could not reducible, Principal Diagnosis Incarcerated right inguinal hernia Elevated lactic acid Elevated creatinine Discharge Data Allergies Allergy/AdvReac Type Severity Reaction Status Date / Time Penicillins Allergy Unknown Unknown Verified 02/11/21 16:40 adhesive tape AdvReac Intermediate itching Verified 02/11/21 16:40 and rash finasteride AdvReac Intermediate painful Verified 02/11/21 16:41 breast lisinopril AdvReac Mild cough Verified 02/11/21 16:41 cotton Allergy Intermediate itching Uncoded 02/11/21 16:41 Consultations 02/11/21 21:35 Consult Hospitalist Routine Procedures Performed Operation Date: 02/11/21 18:30 Actual Procedures p Right Inguinal Hernia Repair(Right) - Adri Lovell MD Ordered Studies 02/11/21 15:05 CT abd pelvis wo con Stat Hospital Course (1) Incarcerated right inguinal hernia: Patient was taken to operating room for open repair of incarcerated right inguinal hernia with possible mesh and bowel resection by Dr. Lovell. Patient's hernia contained small bowel but did not require bowel resection. Patient tolerated procedure well and was transferred to recovery then to medical floor for postop. Medicine was consulted given multiple comorbidities and comanagement. Diet was advanced to regular diet. PO Percocet as needed for pain. IV fluids were continued at decreased rate. POD # 1 , afebrile, vitals stable. Patient was doing extremely well with no pain, not requiring any pain medication, tolerated regular diet, no n/v, no chest pain or shortness of breath, urinating without difficulty. However lactic acid increased from 2.1 pr eop to 3.0. His creatinine was still elevated at stable at 2.1 (2.1 preop). Medicine evaluated patient and recommended stopping IV fluids given history of CHF, holding metformin, and pt/ot consults. Patient was really hoping to be discharged home. Advised repeating lactic acid at 2 pm to see if decreased and stable. Repeat lactic acid was 2.5. Patient was discharged home on POD # 1 in stable condition with close follow-up with PCP in one week, orders for repeat bmp and hemoglobin a 1 c in 2 days, holding metformin until discussion with PCP, and resuming xarelto in the evening of discharge. (2) Elevated lactic acid level: Lactic acid preop was 2.1, repeat in am was elevated at 3.0 Repeat lactic acid in afternoon on postop day # 1 was 2.5 Abdomen and groin examination completely benign, avss, and no leukocytosis Likely secondary to some dehydration and metformin use advised to hold metformin until discussion with PCP in 1 week repeat labs (bmp and hemoglobin a 1 c ) in 2 days (3) Elevated serum creatinine: course as above Total Time Total Time Spent Total Time Spent (In Minutes): 1 hour Total Time Includes: Examination of the Patient, Discharge Planning, Medication Reconciliation, Communication With Other Providers and Other (lab orders) Discharge Plan Discharge Items Patient Disposition: Home - Self-Care Reason For Visit: HERNIA IN GROIN AREA Discharge Diagnosis: Incarcerated right inguinal hernia Condition on Discharge: Fair Activity: Per Instructions section Non-emergency contact: Primary Care Provider Call non-emergency contact if: you have any medication questions, your pain is w orsening, you have a fever, your temperature is above 101, your wound has increased redness, your wound has increased drainage and your wound pain has increased Follow-up/Referrals: Emelyn Washington MD [Primary Care Provider] - 02/19/21 10:20 am IlligDina PA-C [Physician [employer]] - (1 week ) Adri Lovell MD [Physician] - (1-2 weeks) Diet: Regular Ambulatory Orders: Basic Metabolic Panel (Routine) Timeframe: 2 Days Location: Determined by Patient Ordered By: Yun Clements Hemoglobin A1C (Routine) Timeframe: 2 Days Location: Determined by Patient Ordered By: Yun Frankel Attending Provider Instructions: ACTIVITY RECOMMENDATIONS: * Walk as much as possible. * No heavy lifting (>25 lbs.) for at least 4 weeks . * no strenuous activity until cleared by surgeon SPECIAL CARE INSTRUCTIONS: * Ice to hernia repair site on and off until bedtime tonight. * May shower in 3 days. Sponge bath and wash hair in meantime. After 3 days, remove outer dressing and shower. Let water run over area and pat dry. * Leave steri strips on for one week and then remove. * Call the surgeon's office with any questions or concerns - (ex. temperature higher than 101 degrees F, excessive bleeding or pain). MEDICATIONS: * Resume Xarelto tonight * Hold your Metformin as directed by the medicine team until you discuss with Dr. Washington. * Tylenol 500-650 mg every 6 hours as needed for pain. FOLLOW UP VISIT: Follow up with Dr. Lovell in 1-2 weeks. Office located at [address] [place] [id number]. Please call office at with any questions/concerns or need to change your appointment. 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 Washington about sulfonylurea vs GLP/injectable given your kidney disease. Follow up with CHF clinic/[facility] at discharge. Continue to monitor your weights and utilize metolazone as needed. Your bumex was held for today and resume tomorrow. You will need to get a set of labs drawn in 2 days (Tuesday) The lab in the hospital is open from 7 am-12 pm Pending Studies at Discharge: No Stand-Alone Forms: My linkedFA, Smoking Cessation Medications and DC Order Prescriptions: Continued Entresto 97-103 mg tablet 1 tab PO BID Qty: 180 RF: 3 magnesium oxide 400 mg (241.3 mg magnesium) tablet 400 mg PO QPM Qty: 90 RF: 1 buspirone 15 mg tablet 7.5 mg PO BID Qty: 90 RF: 2 potassium chloride 10 mEq capsule, extended release 40 meq PO BID Qty: 300 RF: 11 carvedilol 25 mg tablet 25 mg PO BID Qty: 180 RF: 3 albuterol sulfate [Ventolin HFA] 90 mcg/actuation HFA aerosol inhaler 2 puff INHALATION Q4H PRN (Reason: shortness of breath) RF: 0 diphenhydramine HCl [Benadryl] 25 mg Capsule 25 mg PO QAM PRN (Reason: Itching) RF: 0 docusate sodium [Colace] 100 mg Capsule 100 mg PO DAILY PRN (Reason: Constipation) RF: 0 hydrocortisone 2.5 % cream 1 applic TOPICAL BID PRN (Reason: Skin Irritation) RF: 0 ketoconazole 2 % cream 1 applic topical BID PRN (Reason: Skin Irritation) RF: 0 rosuvastatin 20 mg tablet 20 mg PO HS RF: 0 Xarelto 20 mg tablet 20 mg PO QPM RF: 0 multivitamin Tablet 1 tab PO QAM RF: 0 metolazone 2.5 mg tablet 2.5 mg PO Q2D PRN (Reason: weight gain, edema, SOB) RF: 0 bumetanide 2 mg tablet 4 mg PO QPM RF: 0 terazosin 10 mg capsule 10 mg PO BID RF: 0 Discontinued metformin 1,000 mg tablet 1,000 mg PO BID Qty: 180 RF: 1 Discharge Orders: Discharge Order (Routine); Ordered 02/12/21 Ordered By: Yun Clements Admission Data Admit Date/Time: 02/11/21 20:14 Attending Provider: Adri Lovell Admit Provider: Adri Lovell Primary Care Provider: Emelyn Washington Other Providers: Delmis Potter Other Interventions: Discharge Summary Assessment (RN) Last Done: 02/12/21 15:21
== END 2021-02-12 16:30 | disposition home or self-care (01) ==
LOC: ED 14:49 → OR 18:00 → 2W 20:14 → INTOOBSV 20:14

== ENCOUNTER 2021-03-02 09:55 | Observation (INO) ==
[2021-03-02 10:31] LABS: Basophils # (auto) 0.02 K/uL (0-0.2); Basophils % (auto) 0.4 %; Eosinophils # (auto) 0.58 K/uL (0-0.5); Eosinophils % (auto) 12.2 %; Hematocrit (blood only) 29.2 % (42-52); Hemoglobin 9.5 g/dL (14.0-18.0); Immature Granulocytes # (auto) 0.01 K/uL (0.00-0.02); Immature Granulocytes % (auto) 0.2 %; Lymphocytes # (auto) 0.66 K/uL (1.2-3.4); Lymphocytes % (auto) 13.8 %; Mean Corpuscular Hemoglobin 31.1 pg (25-34); Mean Corpuscular Hgb Conc 32.5 g/dL (32-36); Mean Corpuscular Volume 95.7 fL (80-100); Mean Platelet Volume 10.2 fL (7.4-10.4); Monocytes # (auto) 0.86 K/uL (0.11-0.59); Neutrophils # (auto) 2.64 K/uL (1.4-6.5); Neutrophils % (auto) 55.4 %; Platelet Count 176 K/uL (130-400); RDW Coefficient of Variation 13.2 % (11.5-14.5); RDW Standard Deviation 45.8 fL (36.4-46.3); Red Blood Count 3.05 M/uL (4.7-6.1); White Blood Count 4.77 K/uL (4.8-10.8)
[2021-03-02 10:55] LABS: Potassium 3.9 mmol/L (3.5-5.1)
[2021-03-02 10:56] LABS: Albumin Level 3.2 gm/dl (3.4-5.0); BUN Creatinine Ratio 11.1 (10-20); Calcium 9.4 mg/dl (8.5-10.1); Est GFR (African American) 47.5
[2021-03-02 10:58] LABS: Bilirubin,Total 0.9 mg/dl (0.2-1); Globulin 3.3 gm/dl (2.5-4.0); Total Protein 6.5 gm/dl (6.4-8.2)
[2021-03-02] MEDS ORDERED: SODIUM CHLORIDE 0.9% 500 ML IV ONE (11:22)
[2021-03-02] MEDS ORDERED: CHOLESTYRAMINE LIGHT 4 GM PKT PO STA (11:22)
[2021-03-02] MEDS ORDERED: PANTOPRAZOLE BOLUS/DRIP 1 EA IV STA (13:01)
[2021-03-02] MEDS ORDERED: PANTOprazole 80 MG in DEXTROSE 5% 100 ML IV ONE (13:01)
[2021-03-02] MEDS: PANTOprazole 40 MG in DEXTROSE 5% 100 ML IV SCH ×3 (13:45→23:57)
[2021-03-02 14:02] LABS: Influenza A virus by PCR Negative (Neg); Influenza B virus by PCR Negative (Neg); RSV by PCR Negative (Neg); SARS CoV2 RNA(COVID-19) InHosp NEGATIVE (Negative)
--- NOTE | 2021-03-02 14:13 | History & Physical Report ---
Date of Service March 02, 2021 Assessment & Plan (1) Colitis: Consideration to ischemic colitis considering patient's history and current symptomatology. For now will make patient n.p.o. IV hydration, caution with volume status in patient with known cardiomyopathy Consider CT angiogram of GI vasculature, creatinine is 1.59 so will defer for now. Stool studies I will hold off on antibiotics for the time being Ask GI to evaluate, may require colonoscopy in the near future. (2) Melena: May be secondary to colitis with Xarelto on board. Upper GI bleeding is also a possibility Patient is off Xarelto for 6 days. Patient was started on a PPI drip by the ER physician, will continue for now Consideration to EGD for further work-up. (3) Diabetes type 2, controlled: Patient was recently taken off his Metformin and switched over to Januvia. He does note that he is concerned about the listed side effects although he has not yet experienced any. I will need to discuss this with his primary care physician after discharge. For now, will place on every 6 Accu-Cheks with low-dose short acting insulin. (4) Anemia: Secondary to recent GI bleeding. Patient is on Xarelto, will not restart Would consider transfusion for symptoms or hemoglobin under 8. (5) CAD (coronary artery disease): Will review medications and order as appropriate. Patient is having no acute symptomatology at this time. (6) Hypercholesterolemia: Patient is on Crestor 20 mg daily, will continue (7) Atrial fibrillation: Patient is currently V-paced on the monitor with a rate in the 80s. Off Xarelto as noted above. Will need to reevaluate risk of anticoagulation prior to discharge. (8) HTN, goal below 140/90: Blood pressure acceptable on current medications. (9) Ischemic cardiomyopathy: Outpatient medications as noted above. We will hold off on Entresto and bumetanide in an attempt to improve creatinine for possible contrast study. Should be restarted prior to discharge. History of Present Illness Primary Care Provider: Emelyn Washington MD This is a 72-year-old male with past my history of [id number]-inanilfti diabetes mellitus, diverticulosis, ischemic cardiomyopathy status post BiV pacer/defibrillator, and hypercholesterolemia the presents today complaining abdominal pain and possible GI bleeding. Patient is a decent historian, somewhat divergent when it he answers questions. Patient tells me he has been having ongoing issues over the past 2 months. He is less clear what the problems were, and attributes this to the change in diuretics from another medication he cannot recall to Lasix. He felt he was getting dehydrated with this it was "too strong". However, over the past week he has been having right lower quadrant abdominal pain. This was associated with diarrhea. This was initially black but then took a dark green character. The pain was crampy and persistent, seem to be worsening over the course of a week. He did contact his surgeon at [facility] who told him to stop taking Xarelto and to follow-up with his primary care provider. A CT scan was also ordered but not performed. I do have records from the patient's primary care physician, he was seen in their office and a CT scan was ordered more emergently. He was also told to present to the emergency room if the pain worsened or bleeding continued. Patient presents today because the pain in his abdomen worsen. He tells me he is no longer having that black stool but he is very uncomfortable. He denies any fevers or chills. He denies any chest pain or shortness of breath. CT scan of the abdomen pelvis performed 02/27 an outpatient showed right-sided colitis along with postsurgical changes from his recent hernia repair. On presentation emergency room, his vital signs were stable although he was found to have a hemoglobin of 9.5, down from baseline of over 13. Allergies Allergy/AdvReac Type Severity Reaction Status Date / Time adhesive tape Allergy Intermediate Itching, Verified 03/02/21 13:31 rash Penicillins Allergy Unknown Unknown Verified 03/02/21 13:31 metformin AdvReac Severe AVOID DUE Unverified 03/02/21 13:31 TO KIDNEY FUNCTION finasteride AdvReac Intermediate Breast pain Verified 03/02/21 13:31 lisinopril AdvReac Mild Cough Verified 03/02/21 13:31 Home Medications Medication Instructions Recorded Confirmed Type albuterol sulfate 90 mcg/actuation 2 puff INHALATION Q4H PRN gm 06/16/19 03/02/21 History aerosol inhaler potassium chloride 10 mEq 40 meq PO BID #300 cap 05/21/20 03/02/21 Rx capsule,extended release Xarelto 20 mg PO QPM 10/09/20 03/02/21 History diphenhydramine HCl [Benadryl] 25 mg PO QAM PRN 10/09/20 03/02/21 History hydrocortisone 1 applic TOPICAL BID PRN 10/09/20 03/02/21 History ketoconazole 1 applic TOPICAL BID PRN 10/09/20 03/02/21 History multivitamin 1 tab PO QAM 10/09/20 03/02/21 History rosuvastatin 20 mg PO HS 10/09/20 03/02/21 History sacubitril 97 mg-valsartan 103 mg 1 tab PO BID #180 tab 11/21/20 03/02/21 Rx tablet carvedilol 25 mg tablet 25 mg PO BID #180 tab 11/28/20 03/02/21 Rx magnesium oxide 400 mg (241.3 mg 400 mg PO QPM #90 tab 12/25/20 03/02/21 Rx magnesium) tablet buspirone 15 mg tablet 7.5 mg PO BID #90 tab 01/06/21 03/02/21 Rx bumetanide 4 mg PO DAILY@1500 02/10/21 03/02/21 History terazosin 10 mg PO BID 02/10/21 03/02/21 History Past Med/Surg History Medical History Anemia Arthritis Atrial fibrillation Basal cell carcinoma of skin of other part of trunk Biventricular ICD (implantable cardioverter-defibrillator) in place BPH (benign prostatic hyperplasia) CAD (coronary artery disease) Cataract Chronic systolic CHF (congestive heart failure) Depression with anxiety Diabetes type 2, controlled Hx of rheumatic fever Hx of scarlet fever Hypercholesterolemia Ischemic cardiomyopathy PVCs (premature ventricular contractions) Surgical History History of colonoscopy History of esophagogastroduodenoscopy (EGD) History of tonsillectomy History of tooth extraction S/P cardiac pacemaker procedure S/P cataract surgery S/P eye surgery S/P hernia surgery Family History Unknown No problems noted. Father Diabetes Myocardial infarction Mother Myocardial infarction Other No family history of adverse response to anesthesia Denies family history of Ovarian cancer Prostate cancer Breast cancer Colorectal cancer Social History Smoking Status: Never smoker Second Hand Exposure: No; Hx Alcohol Use: No Hx Substance Use: No Preferred Language: Slovenian Communication Ability: Effective Hearing Ability: Normal Resp Ther Required: No Beliefs That Will Affect Care: None marital status: Current Living Situation: Spouse current occupational status: retired Feels Safe at Home: Yes Childhood Exposure to Second-Hand Smoke: Yes Dental Care, Regularly: Yes Assistive Devices: Cane Review of Systems Constitutional: no fever, no chills, no body aches, no fatigue and no weakness Respiratory: no cough, no chest congestion, no change in sputum, no dyspnea and no dyspnea on exertion Cardiovascular: no chest pain, no chest pain at rest, no chest pain with activity, no radiating jaw, neck or arm pain, no dyspnea and no dyspnea at rest Gastrointestinal: + abdominal pain, + change in bowel habits, + diarrhea/loose stools and + blood in stools; no nausea, no vomiting, no coffee ground emesis, no hematemesis, no dysphagia and no constipation Genitourinary: no dysuria, no difficulty urinating, no urinary frequency, no urinary hesitancy and no urinary incontinence Musculoskeletal: no back pain, no neck pain, no radicular pain, no loss of height and no joint pain Integumentary: as per Subjective / HPI Neurologic: as per Subjective / HPI Psychiatric: as per Subjective / HPI Endocrine: as per Subjective / HPI Physical Exam Constitutional: + well hydrated and cooperative; no acute distress Neck: trachea midline, no thyromegaly Respiratory: normal respiratory effort, lungs clear to auscultation normal respiratory effort Auscultation: lungs clear to auscultation bilaterally Cardiovascular: RRR, no murmur, no edema Heart Sounds: normal S1 and normal S2 Extremities: no edema Gastrointestinal (Abdomen): Inspection/Auscultation: abdomen normal to inspection Percussion/Palpation: abdomen soft; abdomen nontender, no guarding and abdomen not rigid Musculoskeletal: no cyanosis or clubbing, extremities motor strength 5/5 Neurologic: PERRL, EOMI, accommodation nl, no face palsy, no dysarthria Psychiatric: A+Ox3, euthymic affect Results & Data Results & Data ([facility]) Vital Signs (Past 12 Hours) Vital Signs Temp Pulse Resp BP Pulse Ox 03/02/21 13:01 81 14 98 03/02/21 13:00 85 15 141/74 H 97 03/02/21 12:50 80 23 03/02/21 12:40 81 12 03/02/21 12:37 83 23 100 03/02/21 12:36 86 16 137/69 98 03/02/21 12:35 90 22 03/02/21 12:20 81 21 99 03/02/21 12:10 80 13 100 03/02/21 12:01 84 16 98 03/02/21 12:00 84 12 138/79 100 03/02/21 11:50 80 12 100 03/02/21 11:40 80 14 100 03/02/21 11:31 80 93 03/02/21 11:30 80 18 128/79 91 03/02/21 11:20 82 23 03/02/21 11:10 87 100 03/02/21 11:06 82 99 03/02/21 11:04 83 16 126/73 98 03/02/21 10:00 36.2 C L 63 20 145/84 H 99 PG Care Time/CCT Total # of Minutes Spent Total Time Spent with Patient: Total time spent is greater than 50% in coordination of care (as documented) at patient's floor/unit and/or counseling patient: Coding Level of Care Code 34341 Initial Inpt Care Lvl 3 Diagnoses Colitis K52.9 Melena K92.1 Diabetes type 2, controlled E11.9 Anemia D64.9 CAD (coronary artery disease) I25.10 Hypercholesterolemia E78.00 Atrial fibrillation I48.91 HTN, goal below 140/90 I10 Ischemic cardiomyopathy I25.5
[2021-03-02 14:52] LABS: Cdiff Antigen Positive; Cdiff Toxin A+B Negative Cdiff Toxin (Negative)
--- NOTE | 2021-03-02 15:12 | Emergency Department Note ---
Impression & Plan Diarrhea, Acute GI bleeding ED Provider Note NAME: KEDAR CRAWLEY AGE: 80 SEX: M : 1940 ARRIVES VIA: Walk-In INFORMANT: Patient, ED PROVIDER(S): Milton London MD CHIEF COMPLAINT: diarrhea HPI: This 80-year-old male who presents emergency department complaining of diarrhea that has been ongoing for the past 2 weeks. The patient reports the diarrhea gets much worse in the evening and he has to go at least once an hour. He reports he has been taking Lasix and the diarrhea appears to dry up when he is taking Lasix. He does not feel he needs to go here in the emergency department. He reports that the diarrhea originally was black but it is currently green. He has not been on any antibiotics lately. He reports he just had a CAT scan done on which showed a colitis. He denies any fevers or chills. ROS: See above HPI for pertinent positives & negatives. A total of 10 systems r eviewed and were otherwise negative. PAST MEDICAL HISTORY: See Below PAST SURGICAL HISTORY: See Below FAMILY HISTORY: See Below SOCIAL HISTORY: See Below HOME MEDICATIONS: See Below ALLERGIES: See Below VITALS: See Below PHYSICAL EXAMINATION: VITAL SIGNS - Vital signs and nursing notes were reviewed. GENERAL - 80-year-old male appearing stated age who is in no acute distress. Communicates well with provider and answers questions appropriately. SKIN - Without rashes. HEAD - NC/AT. EYES - PERRL with EOMI bilaterally. Sclera anicteric. Palpebral conjunctiva pink and moist with no injection noted. EARS - No deformities of external structures noted on gross examination bilaterally. NOSE - Midline and without cyanosis. No epistaxis or purulent drainage noted. S eptum midline without deviation or septal hematoma noted. MOUTH/OROPHARYNX - Without perioral cyanosis. Buccal mucosa pink and moist and without leukoplakia. Tongue midline with equal elevation of palate bilaterally. No tonsillar hypertrophy, erythema, or exudates noted. NECK - Neck with FROM. Supple to palpation. No nuchal rigidity. LUNGS - Chest wall symmetric without accessory muscle use, intercostals retractions, or central cyanosis. Normal vesicular breath sounds CTA B/L. No wheezes, rales, or rhonchi appreciated. CARDIAC - RRR with S1/S2. No murmur, rubs, or gallops appreciated. ABDOMEN - Abdominal contour without pulsations or visible masses. BS normoactive all four quadrants. No tenderness, palpable masses, hepatosplenomegaly, or ascites noted. EXTREMITIES - No clubbing or peripheral cyanosis. No pretibial edema present. +3/5 radial, posterior tibial, and dorsalis pedis pulses palpated throughout. +5/5 strength noted in UE/LE bilaterally. NEUROLOGIC - Cranial nerves II through XII grossly intact. Sensory intact to light touch throughout. Patellar reflexes +2/4. PSYCH - A&Ox3 and cooperates fully with examiner. Pt is very pleasant and interacts well with examiner. MEDICAL DECISION MAKING: Patient was seen and evaluated as above in room B11B. Review was performed of nursing notes and vital signs. I did review pertinent previous visits and patient history. After obtaining a thorough history and physical examination the above work up was performed. This is a 80-year-old male who presents emergency department complaining of generalized weakness as well as diarrhea. I will note that the patient's hemoglobin has fallen significantly and that he is heme positive on my physical examination. Based on this I did discuss the case with gastroenterology as well as the hospitalist service. Gastroenterology asked that the patient be placed on a Protonix bolus and drip. I did discuss the case with the hospitalist service who did agree to admit the patient. Both patient and are in agreement with the treatment plan. An order was placed for continuous cardiac monitoring. The monitor shows a rate of 80 with Normal SInus rhythm. The patient was evaluated during a period of high volume and high acuity during the global COVID-19 pandemic, and that diagnosis was suspected/considered upon their initial presentation. Their evaluation, treatment and testing was consistent with current guidelines for patients who present with complaints or symptoms that may be related to COVID-19. Patient was seen while provider was wearing PPE. Triage Nursing notes reviewed. Prior medical records reviewed Vital Signs: reviewed and remarkable for no significant abnormalities Differential diagnosis: Diverticulosis, AVM, coagulopathy, colitis, inflammatory bowel disease, malignancy, [place] tear, esophagitis, peptic ulcer disease, variceal bleed, gastritis, epistaxis, fissure, hemorrhoids, as well as other pathologies. ER treatment provided: See below Laboratory studies: As stated above and show below. Imaging studies: See below Consultation(s): GI, Hospitalist Past Med/Surg History Medical History (Updated 03/02/21 @ 17:44 by Milton London MD) Anemia Chronic Arthritis Atrial fibrillation Basal cell carcinoma of skin of other part of trunk Biventricular ICD (implantable cardioverter-defibrillator) in place Implanted 06/2020, most recent check 11/2020, follows with Dr. Davenport BPH (benign prostatic hyperplasia) CAD (coronary artery disease) Multivessel CAD. Previous recommendations for CABG but patient opted for med ical therapy only Cataract R/L Chronic systolic CHF (congestive heart failure) Depression with anxiety Diabetes type 2, controlled NIDDM Hx of rheumatic fever Hx of scarlet fever Hypercholesterolemia Ischemic cardiomyopathy PVCs (premature ventricular contractions) Surgical History History of colonoscopy History of esophagogastroduodenoscopy (EGD) History of tonsillectomy History of tooth extraction S/P cardiac pacemaker procedure 06/2020 S/P cataract surgery S/P eye surgery S/P hernia surgery Open repair of incarcerated right inguinal hernia with mesh (02/11/21): MAC sedation at [facility] Family History Unknown No problems noted. Father Diabetes Myocardial infarction Mother Myocardial infarction Other No family history of adverse response to anesthesia Denies family history of Ovarian cancer Prostate cancer Breast cancer Colorectal cancer Social History Smoking Status: Never smoker Second Hand Exposure: No; Do You Dip or Chew Tobacco: No; Hx Alcohol Use: No Hx Substance Use: No Preferred Language: Azeri Communication Ability: Effective Hearing Ability: Normal Brand Strategist Required: No Beliefs That Will Affect Care: None marital status: Current Living Situation: Spouse current occupational status: retired Other Information That Helps Us Care for You: No Feels Safe at Home: Yes Safety Concerns: Feels Safe At This Time Childhood Exposure to Second-Hand Smoke: Yes Dental Care, Regularly: Yes Assistive Devices: Walker Allergies Allergies Allergy/AdvReac Type Severity Reaction Status Date / Time adhesive tape Allergy Intermediate Itching, Verified 03/02/21 13:31 rash Penicillins Allergy Unknown Unknown Verified 03/02/21 13:31 metformin AdvReac Severe AVOID DUE Unverified 03/02/21 13:31 TO KIDNEY FUNCTION finasteride AdvReac Intermediate Breast pain Verified 03/02/21 13:31 lisinopril AdvReac Mild Cough Verified 03/02/21 13:31 Home Meds Home Medications Medication Instructions Recorded Confirmed albuterol sulfate 90 mcg/actuation 2 puff INHALATION Q4H PRN gm 06/16/19 03/02/21 aerosol inhaler Xarelto 20 mg PO QPM 10/09/20 03/02/21 diphenhydramine HCl [Benadryl] 25 mg PO QAM PRN 10/09/20 03/02/21 hydrocortisone 1 applic TOPICAL BID PRN 10/09/20 03/02/21 ketoconazole 1 applic TOPICAL BID PRN 10/09/20 03/02/21 multivitamin 1 tab PO QAM 10/09/20 03/02/21 rosuvastatin 20 mg PO HS 10/09/20 03/02/21 bumetanide 4 mg PO DAILY@1500 02/10/21 03/02/21 terazosin 10 mg PO BID 02/10/21 03/02/21 Previous Rx's Medication Instructions Recorded potassium chloride 10 mEq 40 meq PO BID #300 cap 05/21/20 capsule,extended release sacubitril 97 mg-valsartan 103 mg 1 tab PO BID #180 tab 11/21/20 tablet carvedilol 25 mg tablet 25 mg PO BID #180 tab 11/28/20 magnesium oxide 400 mg (241.3 mg 400 mg PO QPM #90 tab 12/25/20 magnesium) tablet buspirone 15 mg tablet 7.5 mg PO BID #90 tab 01/06/21 Results & Data (ED) Vital Signs Vital Signs - 24 hr 03/02/21 10:00 03/02/21 11:04 03/02/21 11:06 Temperature 36.2 C L Temperature Source Temporal Artery Scan Pulse Rate 63 83 82 Pulse Rate from SpO2 Sensor 84 83 Pulse Rhythm Regular Pulse Strength Normal Respiratory Rate 20 16 Respiratory Effort / Characteristics Non-Labored Spontaneous Respiratory Depth Normal Respiratory Pattern Regular Blood Pressure 145/84 H 126/73 Blood Pressure Mean 104 90 Blood Pressure Position Sitting Pulse Oximetry 99 98 99 Oxygen Delivery Method Room Air Sepsis Recent Fever Within 48 Hours No Sepsis New/Unexplained Change in Mental Status No Sepsis Action Taken by Nursing No Action Required 03/02/21 11:10 03/02/21 11:20 03/02/21 11:30 Temperature Temperature Source Pulse Rate 87 82 80 Pulse Rate from SpO2 Sensor 87 80 79 Pulse Rhythm Pulse Strength Respiratory Rate 23 18 Respiratory Effort / Characteristics Respiratory Depth Respiratory Pattern Blood Pressure 128/79 Blood Pressure Mean 95 Blood Pressure Position Pulse Oximetry 100 91 Oxygen Delivery Method Sepsis Recent Fever Within 48 Hours Sepsis New/Unexplained Change in Mental Status Sepsis Action Taken by Nursing 03/02/21 11:31 03/02/21 11:40 03/02/21 11:50 Temperature Temperature Source Pulse Rate 80 80 80 Pulse Rate from SpO2 Sensor 82 80 80 Pulse Rhythm Pulse Strength Respiratory Rate 14 12 Respiratory Effort / Characteristics Respiratory Depth Respiratory Pattern Blood Pressure Blood Pressure Mean Blood Pressure Position Pulse Oximetry 93 100 100 Oxygen Delivery Method Sepsis Recent Fever Within 48 Hours Sepsis New/Unexplained Change in Mental Status Sepsis Action Taken by Nursing 03/02/21 12:00 03/02/21 12:01 03/02/21 12:10 Temperature Temperature Source Pulse Rate 84 84 80 Pulse Rate from SpO2 Sensor 83 85 80 Pulse Rhythm Pulse Strength Respiratory Rate 12 16 13 Respiratory Effort / Characteristics Respiratory Depth Respiratory Pattern Blood Pressure 138/79 Blood Pressure Mean 98 Blood Pressure Position Pulse Oximetry 100 98 100 Oxygen Delivery Method Sepsis Recent Fever Within 48 Hours Sepsis New/Unexplained Change in Mental Status Sepsis Action Taken by Nursing 03/02/21 12:20 03/02/21 12:35 03/02/21 12:36 Temperature Temperature Source Pulse Rate 81 90 86 Pulse Rate from SpO2 Sensor 83 87 Pulse Rhythm Pulse Strength Respiratory Rate 21 22 16 Respiratory Effort / Characteristics Respiratory Depth Respiratory Pattern Blood Pressure 137/69 Blood Pressure Mean 91 Blood Pressure Position Pulse Oximetry 99 98 Oxygen Delivery Method Sepsis Recent Fever Within 48 Hours Sepsis New/Unexplained Change in Mental Status Sepsis Action Taken by Nursing 03/02/21 12:37 03/02/21 12:40 03/02/21 12:50 Temperature Temperature Source Pulse Rate 83 81 80 Pulse Rate from SpO2 Sensor 85 Pulse Rhythm Pulse Strength Respiratory Rate 23 12 23 Respiratory Effort / Characteristics Respiratory Depth Respiratory Pattern Blood Pressure Blood Pressure Mean Blood Pressure Position Pulse Oximetry 100 Oxygen Delivery Method Sepsis Recent Fever Within 48 Hours Sepsis New/Unexplained Change in Mental Status Sepsis Action Taken by Nursing 03/02/21 13:00 03/02/21 13:01 03/02/21 13:10 Temperature Temperature Source Pulse Rate 85 81 80 Pulse Rate from SpO2 Sensor 80 80 81 Pulse Rhythm Pulse Strength Respiratory Rate 15 14 15 Respiratory Effort / Characteristics Respiratory Depth Respiratory Pattern Blood Pressure 141/74 H Blood Pressure Mean 96 Blood Pressure Position Pulse Oximetry 97 98 98 Oxygen Delivery Method Sepsis Recent Fever Within 48 Hours Sepsis New/Unexplained Change in Mental Status Sepsis Action Taken by Nursing 03/02/21 13:20 03/02/21 13:30 03/02/21 13:31 Temperature Temperature Source Pulse Rate 80 81 81 Pulse Rate from SpO2 Sensor 80 82 82 Pulse Rhythm Pulse Strength Respiratory Rate 16 14 14 Respiratory Effort / Characteristics Respiratory Depth Respiratory Pattern Blood Pressure 127/71 Blood Pressure Mean 89 Blood Pressure Position Pulse Oximetry 100 99 99 Oxygen Delivery Method Sepsis Recent Fever Within 48 Hours Sepsis New/Unexplained Change in Mental Status Sepsis Action Taken by Nursing 03/02/21 13:40 03/02/21 13:50 03/02/21 14:00 Temperature Temperature Source Pulse Rate 81 82 80 Pulse Rate from SpO2 Sensor 82 78 81 Pulse Rhythm Pulse Strength Respiratory Rate 20 24 14 Respiratory Effort / Characteristics Respiratory Depth Respiratory Pattern Blood Pressure 120/61 Blood Pressure Mean 80 Blood Pressure Position Pulse Oximetry 99 99 99 Oxygen Delivery Method Sepsis Recent Fever Within 48 Hours Sepsis New/Unexplained Change in Mental Status Sepsis Action Taken by Nursing 03/02/21 14:01 Temperature Temperature Source Pulse Rate 80 Pulse Rate from SpO2 Sensor 81 Pulse Rhythm Pulse Strength Respiratory Rate 14 Respiratory Effort / Characteristics Respiratory Depth Respiratory Pattern Blood Pressure Blood Pressure Mean Blood Pressure Position Pulse Oximetry 100 Oxygen Delivery Method Sepsis Recent Fever Within 48 Hours Sepsis New/Unexplained Change in Mental Status Sepsis Action Taken by Nursing Laboratory Data Result diagrams: 03/02/21 16:04 03/02/21 10:22 Lab Results 03/02/21 03/02/21 03/02/21 Range/Units 10:22 10:22 12:35 WBC 4.77 L (4.8-10.8) K/uL RBC 3.05 L (4.7-6.1) M/uL Hgb 9.5 L (14.0-18.0) g/dL Hct 29.2 L (42-52) % MCV 95.7 (80-100) fL MCH 31.1 (25-34) pg MCHC 32.5 (32-36) g/dL RDW Std Deviation 45.8 (36.4-46.3) fL RDW Coeff of Cecilia 13.2 (11.5-14.5) % Plt Count 176 (130-400) K/uL MPV 10.2 (7.4-10.4) fL Immature Gran % (Auto) 0.2 % Neut % (Auto) 55.4 % Lymph % (Auto) 13.8 % Alcorn % (Auto) 18.0 % Eos % (Auto) 12.2 % Baso % (Auto) 0.4 % Neut # (Auto) 2.64 (1.4-6.5) K/uL Lymph # (Auto) 0.66 L (1.2-3.4) K/uL Alcorn # (Auto) 0.86 H (0.11-0.59) K/uL Eos # (Auto) 0.58 H (0-0.5) K/uL Baso # (Auto) 0.02 (0-0.2) K/uL Immature Gran # (Auto) 0.01 (0.00-0.02) K/uL Sodium 142 (136-145) mmol/L Potassium 3.9 (3.5-5.1) mmol/L Chloride 108 H (98-107) mmol/L Carbon Dioxide 28 (21-32) mmol/L Anion Gap 6.0 (3-11) BUN 18 (7-18) mg/dl Creatinine 1.59 H (0.6-1.4) mg/dl Est Cr Clr Drug Dosing 42.0 ml/min Est GFR ( Amer) 47.5 Est GFR (Non-Af Amer) 41.0 BUN/Creatinine Ratio 11.1 (10-20) Glucose 155 H (70-99) mg/dl Calcium 9.4 (8.5-10.1) mg/dl Total Bilirubin 0.9 (0.2-1) mg/dl AST 50 H (15-37) U/L ALT 46 (12-78) U/L Alkaline Phosphatase 139 H (45-117) U/L Total Protein 6.5 (6.4-8.2) gm/dl Albumin 3.2 L (3.4-5.0) gm/dl Globulin 3.3 (2.5-4.0) gm/dl Albumin/Globulin Ratio 1.0 (0.9-2) Lipase 330 (73-393) U/L Stl C. diff Tox B Gene Positive Cdiff Gene H (Neg) Stl C.difficile Tox A&B Negative Cdiff Toxin (Negative) COVID-19 Eval Order SARS-CoV-2 (PCR) (Negative) Influenza Type A (PCR) (Neg) Influenza Type B (PCR) (Neg) RSV (RT-PCR) (Neg) Blood Type Antibody Screen 03/02/21 03/02/21 03/02/21 Range/Units 12:43 13:03 13:03 WBC (4.8-10.8) K/uL RBC (4.7-6.1) M/uL Hgb (14.0-18.0) g/dL Hct (42-52) % MCV (80-100) fL MCH (25-34) pg MCHC (32-36) g/dL RDW Std Deviation (36.4-46.3) fL RDW Coeff of Cecilia (11.5-14.5) % Plt Count (130-400) K/uL MPV (7.4-10.4) fL Immature Gran % (Auto) % Neut % (Auto) % Lymph % (Auto) % [place] % (Auto) % Eos % (Auto) % Baso % (Auto) % Neut # (Auto) (1.4-6.5) K/uL Lymph # (Auto) (1.2-3.4) K/uL Alcorn # (Auto) (0.11-0.59) K/uL Eos # (Auto) (0-0.5) K/uL Baso # (Auto) (0-0.2) K/uL Immature Gran # (Auto) (0.00-0.02) K/uL Sodium (136-145) mmol/L Potassium (3.5-5.1) mmol/L Chloride (98-107) mmol/L Carbon Dioxide (21-32) mmol/L Anion Gap (3-11) BUN (7-18) mg/dl Creatinine (0.6-1.4) mg/dl Est Cr Clr Drug Dosing ml/min Est GFR ( Amer) Est GFR (Non-Af Amer) BUN/Creatinine Ratio (10-20) Glucose (70-99) mg/dl Calcium (8.5-10.1) mg/dl Total Bilirubin (0.2-1) mg/dl AST (15-37) U/L ALT (12-78) U/L Alkaline Phosphatase (45-117) U/L Total Protein (6.4-8.2) gm/dl Albumin (3.4-5.0) gm/dl Globulin (2.5-4.0) gm/dl Albumin/Globulin Ratio (0.9-2) Lipase (73-393) U/L Stl C. diff Tox B Gene (Neg) Stl C.difficile Tox A&B (Negative) COVID-19 Eval Order CovFluRsv at [facility] SARS-CoV-2 (PCR) NEGATIVE (Negative) Influenza Type A (PCR) Negative (Neg) Influenza Type B (PCR) Negative (Neg) RSV (RT-PCR) Negative (Neg) Blood Type A Positive Antibody Screen NEGATIVE Administered Medications Pantoprazole Sodium 40 mg/ (Dextrose) 100 mls @ 20 mls/hr IV Q5H BRANDON Stop: 04/01/21 13:15 Last Admin: 03/02/21 13:45 Dose: 8 mg/hr, 20 mls/hr Documented by: [id number] Sodium Chloride (Nss 1000ml) 1,000 mls @ 80 mls/hr IV .[id number] BRANDON Stop: 04/01/21 15:51 Last Admin: 03/02/21 16:25 Dose: 80 mls/hr Documented by: [id number] Discontinued Medications Cholestyramine Resin (Cholestyramine Light 4 Gm Pkt) 4 gm PO NOW STA Stop: 03/02/21 11:23 Last Admin: 03/02/21 12:01 Dose: 4 gm Documented by: [id number] Sodium Chloride (Nss) 500 mls @ 999 mls/hr IV .Q31M ONE Stop: 03/02/21 11:52 Last Infusion: 03/02/21 13:00 Dose: 999 mls/hr Documented by: [id number] Admin: 03/02/21 12:01 Dose: 999 mls/hr Documented by: [id number] Pantoprazole Sodium (Protonix Bolus/Drip) 0 mls @ 1 mls/hr IV ONE STA Stop: 03/02/21 13:02 Last Admin: 03/02/21 16:28 Dose: Not Given Documented by: [id number] Pantoprazole Sodium 80 mg/ (Dextrose) 120 mls @ 400 mls/hr IV NOW ONE Stop: 03/02/21 13:18 Last Infusion: 03/02/21 13:41 Dose: 400 mls/hr Documented by: [id number] Admin: 03/02/21 13:22 Dose: 400 mls/hr Documented by: [id number] Discharge Plan Visit Data Chief Complaint: Diarrhea Stated Complaint: DIARRHEA, REFERRED BY DR. MATHEWS ED Provider: Milton London Discharge Problem: Diarrhea, Acute GI bleeding Patient Disposition: Admitted As Inpatient Discharge Instructions Interventions: ED Discharge Assessment Last Done: 03/02/21 14:56 Discharge Problem: Diarrhea Qualifiers: Diarrhea type: unspecified type Qualified Code(s): R19.7 - Diarrhea, unspecified
[2021-03-02] MEDS ORDERED: GLUCOSE 10 TABS/TUBE PO PRN (15:52)
[2021-03-02] MEDS ORDERED: DEXTROSE 50% 50 ML SYRINGE IV PRN (15:52)
[2021-03-02] MEDS ORDERED: ONDANSETRON INJ 2 MG/ML 2 ML VIAL IV PRN (15:52)
[2021-03-02] MEDS ORDERED: ALBUTEROL HFA 8 GM INHALER INH PRN (15:52)
[2021-03-02] MEDS ORDERED: diphenhydrAMINE Capsule 25 MG CAP PO PRN (15:52)
[2021-03-02] MEDS ORDERED: CARBOHYDRATES FOR HYPOGLYCEMIA PO PRN (15:52)
[2021-03-02] MEDS ORDERED: GLUCAGON FOR INJ 1 MG VIAL SQ PRN (15:52)
[2021-03-02] MEDS ORDERED: GLUCOSE 40% GEL 15 GM TUBE PO PRN (15:52)
[2021-03-02] MEDS ORDERED: ACETAMINOPHEN 325 MG TAB PO PRN (15:52)
[2021-03-02] MEDS ORDERED: PHARMACY GLYCEMIC MGMT CONSULT PRN (15:57)
[2021-03-02 16:13] LABS: Hematocrit (blood only) 27.6 % (42-52); Hemoglobin 9.4 g/dL (14.0-18.0)
[2021-03-02] MEDS: SODIUM CHLORIDE 0.9% 1000ML 1,000 ML IV SCH (16:25)
--- NOTE | 2021-03-02 16:51 | Consultation Report ---
DATE OF CONSULTATION: 03/02/2021 GASTROINTESTINAL CONSULT NOTE REASON FOR EVALUATION: Diarrhea. HISTORY OF PRESENT ILLNESS: The patient is a 80-year-old male who has been having loose stools for about 2 months. About 3 weeks ago, he had a hernia procedure, but the diarrhea preceded that. The patient reports that some of his stools are dark in color and then in the Emergency Room that turned out to be heme positive. He is on Xarelto for AFib in the past. He denies use of aspirin or nonsteroidals. He has not been on any antibiotics prior to this time and has not been around anyone else that was having diarrhea. In the ER, his stool for C. diff came back positive. PAST MEDICAL HISTORY: Remarkable for ischemic cardiomyopathy with atrial fibrillation. He has got hypertension, hypercholesterolemia, coronary artery disease, diabetes type 2, and anemia. MEDICATIONS: Per list including Xarelto. No aspirin or nonsteroidals. ALLERGIES: ADHESIVE TAPE, PENICILLIN, METFORMIN, FINASTERIDE, AND LISINOPRIL. PAST SURGICAL HISTORY: Remarkable for pacemaker, cataract surgery and hernia repair. Of note, his last colonoscopy is more than 10 years ago. FAMILY HISTORY: Father had diabetes and heart attack. Mother had a heart attack. SOCIAL HISTORY: The patient is and lives with his spouse. He is retired and lives in his own home. PHYSICAL EXAMINATION: GENERAL: The patient appears awake, alert and sitting up in bed, in no acute distress. VITAL SIGNS: Blood pressure is 141/74, pulse 85 and irregular, respirations 15, temperature is normal, pulse ox on room air is 97%. ABDOMEN: Soft. There are no masses, tenderness, or hepatosplenomegaly. IMPRESSION AND PLAN: The patient has diarrhea with a positive Clostridium difficile and Clostridium difficile toxin in the Emergency Room. I plan on starting him on vancomycin orally 125 mg 4 times a day. We will start him on a soft diet. He is aware that there is a 25% risk of relapse following a 10-day course of vancomycin due to the germination of Clostridium difficile spores and if so, we would need to treat him with Dificid. Once his Clostridium difficile infection has cleared completely, he is in need of colonoscopy, which we could pursue as an outpatient. We will continue to follow the patient during his inpatient stay.
[2021-03-02] MEDS: VANCOMYCIN HCL 125 MG/2.5ML SOLN PO SCH ×2 (17:44→23:57)
[2021-03-02] MEDS: RASPBERRY SYRUP 5 ML UDP PO SCH ×2 (17:44→23:57)
[2021-03-02] MEDS: POTASSIUM CHLORIDE CRTAB 20 MEQ TABCR PO SCH (17:45)
[2021-03-02] MEDS: INSULIN ASPART 100 UNITS/ML 3 ML PEN SC SCH ×2 (17:50→22:26)
--- NOTE | 2021-03-02 19:42 | Pharmacy Report ---
Pharmacy Glycemic Short Note 2 - Date of Service March 02, 2021 - Glycemic Short BSG Results (Last 24 hours): 03/02/21 03/02/21 10:22 17:13 Glucose 155 H POC Glucose 153 H OUTPATIENT ANTIDIABETIC REGIMEN: * Januvia * Previously prescribed metformin (recently discontinued due to worsening renal function) * HbA1c: 7.3% (02/16/21) ASSESSMENT: * ST is a 80 year old male admitted due to concern for GI bleed and prolonged history of diarrhea * Now being treated with Protonix gtt and PO vancomycin for Clostridium difficile infection * S/p inguinal hernia repair on 02/11/21 - BSGs reasonably well controlled with only bolus insulin during that admission * BSG at time of consult is 153 mg/dL, 137 mg/dL at HS * Will be conservative and use ~0.1 unit/kg of basal due to prior insulin usage and possible change in diet w/ GI illness PLAN FOR INPATIENT GLYCEMIC CONTROL: * Hold outpatient oral diabetes medications * Basal insulin * Lantus 8 units SC x 1 this evening * Bolus insulin * NovoLog per scale ACHS or Q6hrs while NPO * Goal Range: Low 110 mg/dL - High 140 mg/dL * Correction Factor: 30 mg/dL/unit * Nutritional / Prandial insulin per carb ratio of 1 unit per 10 grams CHO consumed PLAN FOR DISCHARGE: * tbd
[2021-03-02] MEDS: SACUBITRIL-VALSARTAN 97-103 MG TAB PO SCH (20:33)
[2021-03-02] MEDS: busPIRone 7.5 MG TAB PO SCH (20:35)
[2021-03-02] MEDS: carvediloL 25 MG TAB PO SCH (20:36)
[2021-03-02] MEDS: ROSUVASTATIN CALCIUM 20 MG TAB PO SCH (20:37)
[2021-03-02] MEDS: TERAZOSIN HCL 5 MG CAP PO SCH (20:37)
[2021-03-02] MEDS ORDERED: INSULIN GLARGINE SOLOSTAR 100 UNITS/ML 3 ML PEN SC ONE (21:00)
[2021-03-03 00:23] LABS: Hematocrit (blood only) 26.3 % (42-52); Hemoglobin 8.7 g/dL (14.0-18.0)
[2021-03-03] MEDS: SODIUM CHLORIDE 0.9% 1000ML 1,000 ML IV SCH ×2 (03:40→16:11)
[2021-03-03] MEDS: PANTOprazole 40 MG in DEXTROSE 5% 100 ML IV SCH (03:40)
[2021-03-03] MEDS: VANCOMYCIN HCL 125 MG/2.5ML SOLN PO SCH ×4 (06:31→23:12)
[2021-03-03] MEDS: RASPBERRY SYRUP 5 ML UDP PO SCH ×4 (06:31→23:12)
[2021-03-03 07:53] LABS: Basophils # (auto) 0.01 K/uL (0-0.2); Basophils % (auto) 0.2 %; Eosinophils # (auto) 0.54 K/uL (0-0.5); Eosinophils % (auto) 12.3 %; Hematocrit (blood only) 27.6 % (42-52); Lymphocytes # (auto) 0.92 K/uL (1.2-3.4); Mean Corpuscular Hemoglobin 31.3 pg (25-34); Mean Corpuscular Hgb Conc 32.6 g/dL (32-36); Mean Corpuscular Volume 95.8 fL (80-100); Mean Platelet Volume 9.6 fL (7.4-10.4); Monocytes # (auto) 0.59 K/uL (0.11-0.59); Monocytes % (auto) 13.5 %; Neutrophils # (auto) 2.32 K/uL (1.4-6.5); Platelet Count 182 K/uL (130-400); RDW Coefficient of Variation 13.2 % (11.5-14.5); Red Blood Count 2.88 M/uL (4.7-6.1); White Blood Count 4.38 K/uL (4.8-10.8)
[2021-03-03 08:13] LABS: BUN Creatinine Ratio 10.8 (10-20); Calcium 8.9 mg/dl (8.5-10.1); Est GFR (African American) 47.5; Magnesium 1.9 mg/dl (1.8-2.4); Potassium 3.8 mmol/L (3.5-5.1)
[2021-03-03] MEDS: SACUBITRIL-VALSARTAN 97-103 MG TAB PO SCH ×2 (08:52→20:42)
[2021-03-03] MEDS: MULTIVITAMIN TAB PO SCH (08:52)
[2021-03-03] MEDS: PANTOprazole 40 MG in SYRINGE 0 ML IV SCH ×2 (08:53→20:41)
[2021-03-03] MEDS: POTASSIUM CHLORIDE CRTAB 20 MEQ TABCR PO SCH ×2 (08:53→13:17)
[2021-03-03] MEDS: TERAZOSIN HCL 5 MG CAP PO SCH ×2 (08:53→20:43)
[2021-03-03] MEDS: carvediloL 25 MG TAB PO SCH (08:53)
[2021-03-03] MEDS: busPIRone 7.5 MG TAB PO SCH ×2 (08:53→20:41)
[2021-03-03] MEDS: INSULIN ASPART 100 UNITS/ML 3 ML PEN SC SCH ×4 (08:57→21:34)
--- NOTE | 2021-03-03 09:08 | Gastroenterology Progress Note ---
Date of Service March 03, 2021 Assessment & Plan (1) C. difficile colitis: The patient is feeling well this morning. The patient has diarrhea with a positive Clostridium difficile and Clostridium difficile toxin in the Emergency Room. He was started on vancomycin orally 125 mg 4 times a day. Tolerating a soft diet. Once his Clostridium difficile infection has cleared completely, he is in need of colonoscopy, which we could pursue as an outpatient. We will continue to follow the patient during his inpatient stay. Please refer to supervising physician addendum for further recommendations. Admission and Anticipated Discharge Date Admission Date: March 02, 2021 Subjective Patient awake, alert, and sitting at his bedside this morning. Tolerated breakfast this morning without difficulty. Did not enjoy the cream of wheat. Denies abdominal pain, nausea, or vomiting. States he had a diarrhea stool this morning that woke him at 0500 this morning. Denies any melena or hematochezia. He is and lives with his . He has neighbors and two children locally that help when needed. Review of Systems Review of Systems: All systems reviewed & are unremarkable except as noted in HPI & below Physical Exam Constitutional: WD/WN, vitals as above Respiratory: normal respiratory effort; no respiratory distress and no labored breathing Cardiovascular: Rate/Rhythm: regular rate and regular rhythm Extremities: no edema Gastrointestinal (Abdomen): Inspection/Auscultation: abdomen normal to inspection and normal bowel sounds Percussion/Palpation: abdomen soft; abdomen nontender, no guarding and abdomen not rigid Psychiatric: A+Ox3, euthymic affect Results & Data ([facility]) Vital Signs (Past 12 Hours) Vital Signs Temp Pulse Resp BP Pulse Ox 03/03/21 06:56 36.6 C 80 18 145/85 H 96 03/02/21 22:50 36.7 C 83 12 123/69 95 Laboratory Results - last 24 hr 03/02/21 03/02/21 03/02/21 10:22 10:22 12:35 WBC 4.77 L RBC 3.05 L Hgb 9.5 L Hct 29.2 L MCV 95.7 MCH 31.1 MCHC 32.5 RDW Std Deviation 45.8 RDW Coeff of Cecilia 13.2 Plt Count 176 MPV 10.2 Immature Gran % (Auto) 0.2 Neut % (Auto) 55.4 Lymph % (Auto) 13.8 Hemphill % (Auto) 18.0 Eos % (Auto) 12.2 Baso % (Auto) 0.4 Neut # (Auto) 2.64 Lymph # (Auto) 0.66 L Hemphill # (Auto) 0.86 H Eos # (Auto) 0.58 H Baso # (Auto) 0.02 Immature Gran # (Auto) 0.01 Sodium 142 Potassium 3.9 Chloride 108 H Carbon Dioxide 28 Anion Gap 6.0 BUN 18 Creatinine 1.59 H Est Cr Clr Drug Dosing 42.0 Est GFR ( Amer) 47.5 Est GFR (Non-Af Amer) 41.0 BUN/Creatinine Ratio 11.1 Glucose 155 H POC Glucose Calcium 9.4 Magnesium Total Bilirubin 0.9 AST 50 H ALT 46 Alkaline Phosphatase 139 H Total Protein 6.5 Albumin 3.2 L Globulin 3.3 Albumin/Globulin Ratio 1.0 Lipase 330 Stl C. diff Tox B Gene Positive Cdiff Gene H Stl C.difficile Tox A&B Negative Cdiff Toxin Stool Comments COVID-19 Eval Order SARS-CoV-2 (PCR) Influenza Type A (PCR) Influenza Type B (PCR) RSV (RT-PCR) Blood Type Antibody Screen 03/02/21 03/02/21 03/02/21 12:35 12:43 13:03 WBC RBC Hgb Hct MCV MCH MCHC RDW Std Deviation RDW Coeff of Cecilia Plt Count MPV Immature Gran % (Auto) Neut % (Auto) Lymph % (Auto) Hemphill % (Auto) Eos % (Auto) Baso % (Auto) Neut # (Auto) Lymph # (Auto) Hemphill # (Auto) Eos # (Auto) Baso # (Auto) Immature Gran # (Auto) Sodium Potassium Chloride Carbon Dioxide Anion Gap BUN Creatinine Est Cr Clr Drug Dosing Est GFR ( Amer) Est GFR (Non-Af Amer) BUN/Creatinine Ratio Glucose POC Glucose Calcium Magnesium Total Bilirubin AST ALT Alkaline Phosphatase Total Protein Albumin Globulin Albumin/Globulin Ratio Lipase Stl C. diff Tox B Gene Stl C.difficile Tox A&B Stool Comments Pending COVID-19 Eval Order CovFluRsv at [facility] SARS-CoV-2 (PCR) Influenza Type A (PCR) Influenza Type B (PCR) RSV (RT-PCR) Blood Type A Positive Antibody Screen NEGATIVE 03/02/21 03/02/21 03/02/21 13:03 16:04 17:13 WBC RBC Hgb 9.4 L Hct 27.6 L MCV MCH MCHC RDW Std Deviation RDW Coeff of Cecilia Plt Count MPV Immature Gran % (Auto) Neut % (Auto) Lymph % (Auto) Hemphill % (Auto) Eos % (Auto) Baso % (Auto) Neut # (Auto) Lymph # (Auto) Hemphill # (Auto) Eos # (Auto) Baso # (Auto) Immature Gran # (Auto) Sodium Potassium Chloride Carbon Dioxide Anion Gap BUN Creatinine Est Cr Clr Drug Dosing Est GFR ( Amer) Est GFR (Non-Af Amer) BUN/Creatinine Ratio Glucose POC Glucose 153 H Calcium Magnesium Total Bilirubin AST ALT Alkaline Phosphatase Total Protein Albumin Globulin Albumin/Globulin Ratio Lipase Stl C. diff Tox B Gene Stl C.difficile Tox A&B Stool Comments COVID-19 Eval Order SARS-CoV-2 (PCR) NEGATIVE Influenza Type A (PCR) Negative Influenza Type B (PCR) Negative RSV (RT-PCR) Negative Blood Type Antibody Screen 03/02/21 03/02/21 03/03/21 20:45 23:56 07:30 WBC 4.38 L RBC 2.88 L Hgb 8.7 L 9.0 L Hct 26.3 L 27.6 L MCV 95.8 MCH 31.3 MCHC 32.6 RDW Std Deviation 46.0 RDW Coeff of Cecilia 13.2 Plt Count 182 MPV 9.6 Immature Gran % (Auto) 0.0 Neut % (Auto) 53.0 Lymph % (Auto) 21.0 Hemphill % (Auto) 13.5 Eos % (Auto) 12.3 Baso % (Auto) 0.2 Neut # (Auto) 2.32 Lymph # (Auto) 0.92 L Hemphill # (Auto) 0.59 Eos # (Auto) 0.54 H Baso # (Auto) 0.01 Immature Gran # (Auto) 0.00 Sodium Potassium Chloride Carbon Dioxide Anion Gap BUN Creatinine Est Cr Clr Drug Dosing Est GFR ( Amer) Est GFR (Non-Af Amer) BUN/Creatinine Ratio Glucose POC Glucose 137 H Calcium Magnesium Total Bilirubin AST ALT Alkaline Phosphatase Total Protein Albumin Globulin Albumin/Globulin Ratio Lipase Stl C. diff Tox B Gene Stl C.difficile Tox A&B Stool Comments COVID-19 Eval Order SARS-CoV-2 (PCR) Influenza Type A (PCR) Influenza Type B (PCR) RSV (RT-PCR) Blood Type Antibody Screen 03/03/21 03/03/21 07:30 07:46 WBC RBC Hgb Hct MCV MCH MCHC RDW Std Deviation RDW Coeff of Cecilia Plt Count MPV Immature Gran % (Auto) Neut % (Auto) Lymph % (Auto) Hemphill % (Auto) Eos % (Auto) Baso % (Auto) Neut # (Auto) Lymph # (Auto) Hemphill # (Auto) Eos # (Auto) Baso # (Auto) Immature Gran # (Auto) Sodium 142 Potassium 3.8 Chloride 110 H Carbon Dioxide 28 Anion Gap 4.0 BUN 17 Creatinine 1.59 H Est Cr Clr Drug Dosing 42.0 Est GFR ( Amer) 47.5 Est GFR (Non-Af Amer) 41.0 BUN/Creatinine Ratio 10.8 Glucose 155 H POC Glucose 158 H Calcium 8.9 Magnesium 1.9 Total Bilirubin AST ALT Alkaline Phosphatase Total Protein Albumin Globulin Albumin/Globulin Ratio Lipase Stl C. diff Tox B Gene Stl C.difficile Tox A&B Stool Comments COVID-19 Eval Order SARS-CoV-2 (PCR) Influenza Type A (PCR) Influenza Type B (PCR) RSV (RT-PCR) Blood Type Antibody Screen
--- NOTE | 2021-03-03 09:11 | Pharmacy Report ---
Pharmacy Glycemic Short Note 2 - Date of Service March 03, 2021 - Glycemic Short BSG Results (Last 24 hours): 03/02/21 03/02/21 03/02/21 10:22 17:13 20:45 Glucose 155 H POC Glucose 153 H 137 H 03/03/21 03/03/21 07:30 07:46 Glucose 155 H POC Glucose 158 H OUTPATIENT ANTIDIABETIC REGIMEN: * Januvia * Previously prescribed metformin (recently discontinued due to worsening renal function) * HbA1c: 7.3% (02/16/21) ASSESSMENT: 03/03 * Patient received 12 units of insulin yesterday, of which 8 units were basal * Fasting BSG 158 mg/dL - plan to continue HS basal per scale * Continue same CF/CR for now 03/02 * ST is a 80 year old male admitted due to concern for GI bleed and prolonged history of diarrhea * Now being treated with Protonix gtt and PO vancomycin for Clostridium diffi cile infection * S/p inguinal hernia repair on 02/11/21 - BSGs reasonably well controlled with only bolus insulin during that admission * BSG at time of consult is 153 mg/dL, 137 mg/dL at HS * Will be conservative and use ~0.1 unit/kg of basal due to prior insulin usage and possible change in diet w/ GI illness PLAN FOR INPATIENT GLYCEMIC CONTROL: * Hold outpatient oral diabetes medications * Basal insulin * Lantus 8-10 units HS * Bolus insulin * NovoLog per scale ACHS or Q6hrs while NPO * Goal Range: Low 110 mg/dL - High 140 mg/dL * Correction Factor: 30 mg/dL/unit * Nutritional / Prandial insulin per carb ratio of 1 unit per 10 grams CHO consumed PLAN FOR DISCHARGE: * A1c 7.3% - follow up to see if patient is on Januvia or any other diabetic medications at home.
--- NOTE | 2021-03-03 11:37 | Hospitalist Progress Note ---
Date of Service March 03, 2021 Assessment & Plan (1) Colitis: Campylobacter +/- c. diff (toxin negative) Continue vancomycin PO 125mg QID per GI recommendations Start Azithromycin 500mg IV 7 days for Campylobacter (2) Melena: May be secondary to colitis with Xarelto on board. Upper GI bleeding is also a possibility. Patient is off Xarelto for 6 days. Patient was started on a PPI drip by the ER physician, will switch to pantoprazole 40mg IV BID (3) Diabetes type 2, controlled: Patient was recently taken off his Metformin and switched over to Januvia. He does note that he is concerned about the listed side effects although he has not yet experienced any. I will need to discuss this with his primary care physician after discharge. For now, will place on every 6 Accu-Cheks with low-dose short acting insulin. (4) Anemia: Secondary to recent GI bleeding. Patient is on Xarelto, will not restart Would consider transfusion for symptoms or hemoglobin under 8. (5) CAD (coronary artery disease): Will review medications and order as appropriate. Patient is having no acute symptomatology at this time. (6) Hypercholesterolemia: Patient is on Crestor 20 mg daily, will continue (7) Atrial fibrillation: Patient is currently V-paced on the monitor with a rate in the 80s. Off Xarelto as noted above. Will need to reevaluate risk of anticoagulation prior to discharge. (8) HTN, goal below 140/90: Blood pressure acceptable on current medications. (9) Ischemic cardiomyopathy: Outpatient medications as noted above. We will hold off on Entresto and bumetanide in an attempt to improve creatinine for possible contrast study. Should be restarted prior to discharge. Admission and Anticipated Discharge Date Admission Date: March 02, 2021 Subjective No real change in patient symptoms overnight. Continues with "coffee-ground" diarrhea. Chills this morning. Mild abdominal pain. No nausea or vomiting. Review of Systems Review of Systems: All systems reviewed & are unremarkable except as noted in HPI & below Physical Exam Constitutional: WD/WN, vitals as above Eyes: + anicteric sclerae; normal pupil size ENMT: external ear and nose normal, oropharynx normal Respiratory: normal respiratory effort, lungs clear to auscultation Cardiovascular: RRR, no murmur, no edema Gastrointestinal (Abdomen): Inspection/Auscultation: normal bowel sounds Percussion/Palpation: + abdomen tender (mild, generalized) and abdomen soft; no guarding and abdomen not rigid Musculoskeletal: no cyanosis or clubbing, extremities motor strength 5/5 Skin: no rashes, warm and dry Neurologic: moves all extremities and awake; not confused Results & Data Results & Data ([facility]) Vital Signs (Past 12 Hours) Vital Signs Temp Pulse Resp BP Pulse Ox 03/03/21 06:56 36.6 C 80 18 145/85 H 96 PG Care Time/CCT Total # of Minutes Spent Total Time Spent with Patient: Total time spent is greater than 50% in coordination of care (as documented) at patient's floor/unit and/or counseling patient: Coding Level of Care Code 72510 Subseq Hosp Care Lvl 2 Diagnoses Colitis K52.9 Melena K92.1 Diabetes type 2, controlled E11.9 Anemia D64.9 CAD (coronary artery disease) I25.10 Hypercholesterolemia E78.00 Atrial fibrillation I48.91 HTN, goal below 140/90 I10 Ischemic cardiomyopathy I25.5
[2021-03-03] MEDS: AZITHROMYCIN 500 MG in DEXTROSE 5% 250 ML IV SCH (13:17)
--- NOTE | 2021-03-03 14:19 | Progress Notes ---
DATE: 03/03/2021 ADDENDUM I reviewed the chart and examined the patient and the patient has had 2 loose bowel movements so far today, but is tolerating a soft diet. He remains afebrile. His hemoglobin is stable at 9. This is day 2 of vancomycin. The plan is to continue the vancomycin and continue to monitor him for progress. He will need both an EGD and colonoscopy in an outpatient setting once he is cleared of his C. diff and it has been eradicated.
[2021-03-03] MEDS: ROSUVASTATIN CALCIUM 20 MG TAB PO SCH (20:42)
[2021-03-03] MEDS: carvediloL 12.5 MG TAB PO SCH (20:42)
[2021-03-03] MEDS ORDERED: INSULIN GLARGINE SOLOSTAR 100 UNITS/ML 3 ML PEN SC SCH ×2 (21:00)
[2021-03-04] MEDS: SODIUM CHLORIDE 0.9% 1000ML 1,000 ML IV SCH (04:18)
[2021-03-04] MEDS: RASPBERRY SYRUP 5 ML UDP PO SCH ×2 (06:03→13:10)
[2021-03-04] MEDS: VANCOMYCIN HCL 125 MG/2.5ML SOLN PO SCH ×2 (06:03→13:10)
[2021-03-04] MEDS: busPIRone 7.5 MG TAB PO SCH (09:20)
[2021-03-04] MEDS: SACUBITRIL-VALSARTAN 97-103 MG TAB PO SCH (09:20)
[2021-03-04] MEDS: carvediloL 12.5 MG TAB PO SCH (09:21)
[2021-03-04] MEDS: TERAZOSIN HCL 5 MG CAP PO SCH (09:21)
[2021-03-04] MEDS: POTASSIUM CHLORIDE CRTAB 20 MEQ TABCR PO SCH ×2 (09:21→13:10)
[2021-03-04] MEDS: MULTIVITAMIN TAB PO SCH (09:22)
[2021-03-04] MEDS: INSULIN ASPART 100 UNITS/ML 3 ML PEN SC SCH ×2 (09:22→13:11)
[2021-03-04] MEDS: PANTOprazole 40 MG in SYRINGE 0 ML IV SCH (09:23)
--- NOTE | 2021-03-04 09:49 | Gastroenterology Progress Note ---
Date of Service March 04, 2021 Assessment & Plan (1) C. difficile colitis: The patient is feeling well this morning and states he is feeling well enough for discharge. The patient has diarrhea with a positive Clostridium difficile and Clostridium difficile toxin in the Emergency Room. He was started on vancomycin orally 125 mg 4 times a day. Tolerating a soft diet. Once his Clostridium difficile infection has cleared completely, he is in need of colonoscopy, which we could pursue as an outpatient. Will facilitate outpatient GI follow-up. Please refer to supervising physician addendum for further recommendations. Admission and Anticipated Discharge Date Admission Date: March 02, 2021 Subjective Patient awake, alert, and sitting at his bedside this morning. Reports he is feeling better today. Tolerated breakfast this morning without difficulty. Denies abdominal pain, nausea, or vomiting. States he had a diarrhea stool this morning that woke him this morning. Denies any melena or hematochezia. Review of Systems Review of Systems: All systems reviewed & are unremarkable except as noted in HPI & below Physical Exam Neck: normal visual inspection Respiratory: normal respiratory effort; no respiratory distress and no labored breathing Cardiovascular: Rate/Rhythm: regular rate and regular rhythm Extremities: no edema Gastrointestinal (Abdomen): Inspection/Auscultation: abdomen normal to inspection and normal bowel sounds Percussion/Palpation: abdomen soft; abdomen nontender, no guarding and abdomen not rigid Results & Data ([facility]) Vital Signs (Past 12 Hours) Vital Signs Temp Pulse Resp BP Pulse Ox 03/04/21 07:35 36.7 C 78 17 154/87 H 96 03/03/21 23:27 37.0 C 84 19 114/63 97 Laboratory Results - last 24 hr 03/03/21 03/03/21 03/03/21 11:47 16:51 21:09 POC Glucose 82 208 H 192 H 03/04/21 08:19 POC Glucose 150 H
--- NOTE | 2021-03-04 10:55 | Pharmacy Report ---
Pharmacy Glycemic Short Note 2 - Date of Service March 04, 2021 - Glycemic Short BSG Results (Last 24 hours): 03/03/21 03/03/21 03/03/21 11:47 16:51 21:09 POC Glucose 82 208 H 192 H 03/04/21 08:19 POC Glucose 150 H OUTPATIENT ANTIDIABETIC REGIMEN: * Januvia * Previously prescribed metformin (recently discontinued due to worsening renal function) * HbA1c: 7.3% (02/16/21) ASSESSMENT: 03/04/21: * Mr Benavides received 20 units of insulin yesterday (8 units basal, 12 units prandial/correctional). * Fasting BSG slightly above goal this morning, so Lantus scale will be adjusted this evening. * Lunch-time BSG was below goal range yesterday, so carb coverage was removed. Patient was then hyperglycemic in the evening. * Carb coverage re-initiated today, but much more conservatively. Will continue to adjust if needed. 03/03 * Patient received 12 units of insulin yesterday, of which 8 units were basal * Fasting BSG 158 mg/dL - plan to continue HS basal per scale * Continue same CF/CR for now 03/02 * ST is a 80 year old male admitted due to concern for GI bleed and prolonged history of diarrhea * Now being treated with Protonix gtt and PO vancomycin for Clostridium difficile infection * S/p inguinal hernia repair on 02/11/21 - BSGs reasonably well controlled with only bolus insulin during that admission * BSG at time of consult is 153 mg/dL, 137 mg/dL at HS * Will be conservative and use ~0.1 unit/kg of basal due to prior insulin usage and possible change in diet w/ GI illness PLAN FOR INPATIENT GLYCEMIC CONTROL: * Hold outpatient oral diabetes medications * Basal insulin * Lantus 6-9 units HS, per scale * Bolus insulin * NovoLog per scale ACHS or Q6hrs while NPO * Goal Range: Low 110 mg/dL - High 140 mg/dL * Correction Factor: 30 mg/dL/unit * Nutritional / Prandial insulin per carb ratio of 1 unit per 20 grams CHO consumed PLAN FOR DISCHARGE: * A1c 7.3% - follow up to see if patient is on Januvia or any other diabetic medications at home.
[2021-03-04 11:09] LABS: Hematocrit (blood only) 26.6 % (42-52); Hemoglobin 8.8 g/dL (14.0-18.0); Mean Corpuscular Hemoglobin 31.4 pg (25-34); Mean Corpuscular Hgb Conc 33.1 g/dL (32-36); Mean Platelet Volume 9.6 fL (7.4-10.4); Platelet Count 176 K/uL (130-400); RDW Coefficient of Variation 13.2 % (11.5-14.5); RDW Standard Deviation 45.5 fL (36.4-46.3)
[2021-03-04 11:29] LABS: BUN Creatinine Ratio 11.1 (10-20); Creatinine Clr Calc Pharmacy 41.5 ml/min; Est GFR (African American) 46.8; Est GFR (Non-African American) 40.4; Potassium 4.1 mmol/L (3.5-5.1)
--- NOTE | 2021-03-04 12:55 | Progress Notes ---
DATE: 03/04/2021 Addendum to the note by Francisca Santos: I examined the patient today and spoke with him. Noteworthy today is that his stool culture has returned positive for Campylobacter jejuni in addition to C. diff. The patient is actually feeling better and his stools are forming up and he is tolerating a soft low-fiber diet. At this point, I would recommend a 7-day treatment with azithromycin along with vancomycin for that 7-day period and then once that is completed, the campylobacter should be eradicated and then I would recommend an additional 10 days of vancomycin 125 four times a day to prevent relapse of his C. diff. He is aware that this is a reportable condition and he may get a call from the Department of Health about the campylobacter infection. The patient will follow up in our office as an outpatient in a couple of weeks.
[2021-03-04] MEDS: AZITHROMYCIN 500 MG in DEXTROSE 5% 250 ML IV SCH (13:11)
--- NOTE | 2021-03-04 19:57 | Discharge Summary ---
Date of Service March 04, 2021 Admission HPI Per Admitting Provider This is a 72-year-old male with past my history of [id number] diabetes mellitus, diverticulosis, ischemic cardiomyopathy status post BiV pacer/defibrillator, and hypercholesterolemia the presents today complaining abdominal pain and possible GI bleeding. Patient is a decent historian, somewhat divergent when it he answers questions. Patient tells me he has been having ongoing issues over the past 2 months. He is less clear what the problems were, and attributes this to the change in diuretics from another medication he cannot recall to Lasix. He felt he was getting dehydrated with this it was "too strong". However, over the past week he has been having right lower quadrant abdominal pain. This was associated with diarrhea. This was initially black but then took a dark green character. The pain was crampy and persistent, seem to be worsening over the course of a week. He did contact his surgeon at [facility] who told him to stop taking Xarelto and to follow-up with his primary care provider. A CT scan was also ordered but not performed. I do have records from the patient's primary care physician, he was seen in their office and a CT scan was ordered more emergently. He was also told to present to the emergency room if the pain worsened or bleeding continued. Patient presents today because the pain in his abdomen worsen. He tells me he is no longer having that black stool but he is very uncomfortable. He denies any fevers or chills. He denies any chest pain or shortness of breath. CT scan of the abdomen pelvis performed 02/27 an outpatient showed right-sided colitis along with postsurgical changes from his recent hernia repair. On presentation emergency room, his vital signs were stable although he was found to have a hemoglobin of 9.5, down from baseline of over 13. Principal Diagnosis Infectious colitisCampylobacter and likely concomitant C. difficile Discharge Exam In general he is awake and alert pleasant no distress. HEENT normocephalic atraumatic mucous membranes moist. Breathing unlabored no accessory muscle use good effort. Abdomen is soft nondistended nontender, he has a healed hernia incision in his right groin, no tenderness no bulging or knuckling noted. Skin shows no rashes no pallor or icterus. Discharge Data Allergies Allergy/AdvReac Type Severity Reaction Status Date / Time adhesive tape Allergy Intermediate Itching, Verified 03/02/21 13:31 rash Penicillins Allergy Unknown Unknown Verified 03/02/21 13:31 metformin AdvReac Severe AVOID DUE Unverified 03/02/21 13:31 TO KIDNEY FUNCTION finasteride AdvReac Intermediate Breast pain Verified 03/02/21 13:31 lisinopril AdvReac Mild Cough Verified 03/02/21 13:31 Consultations 03/02/21 12:18 ED Decision to Admit Stat 03/02/21 13:02 Consult Gastroenterology Stat Hospital Course (1) Colitis: Campylobacter +/- c. diff (toxin negative) After discussion with GI, treat for bothZithromax and vancomycin (2) Melena: May be secondary to colitis with Xarelto on board. appears OK resume since infection getting better outpt colo (3) Diabetes type 2, controlled: home meds (4) Anemia: Secondary to recent GI bleeding. appears to be stopping/have stopped. ok to resume xarelto. outpt CBC f/u, outpt GI follow up (5) CAD (coronary artery disease): Asymptomatic, continue home meds (6) Hypercholesterolemia: Continue Crestor (7) Atrial fibrillation: Rate controlled, appears safe to resume anticoagulation (8) HTN, goal below 140/90: Outpatient follow-up. (9) Ischemic cardiomyopathy: Home meds, outpatient follow-up Total Time Total Time Spent Total Time Spent (In Minutes): <30 Discharge Plan Discharge Items Patient Disposition: Home - Self-Care Reason For Visit: ABDOMINAL PAIN Discharge Diagnosis: infectious diarrhea - see below Activity: Resume your previous activity Non-emergency contact: Primary Care Provider and [facility] Call non-emergency contact if: you have any medication questions and your symptoms worsen Follow-up/Referrals: Emelyn Washington MD [Primary Care Provider] - Diet: Regular Addtl Attending Provider Instructions: Infectious diarrhea: -After extensive review, it is most likely that your diarrhea was caused by an infection by bacteria called Campylobacter, but we also saw that you were colonized by bacteria called C. difficile that can also cause diarrhea. While it is most likely that the Campylobacter was causing the infection in the C. difficile "just happened to be there" given your situation it is most prudent to treat for both -To treat the Campylobacter we typically utilize Zithromaxwe will treat for about a weekwhich means that you will have 5 more doses. Treating it is azithromycin (Zithromax) 500 mg once a day. He will have had 2 days of treatment in the hospital, she will need 5 more after discharge, with your next dose being tomorrow (03/05). -To treat the C. difficile, we utilize vancomycinand we will need to treat with it for about 10 days past the completion of the Zithromax. In that respect he will have 15 more days of vancomycin. It is 125 mg 4 times a day (do your best to remember the midday doses, and if you realize you have forgotten a dose, it is probably better to double up then to skip). Your next dose of that should be this evening. Pending Studies at Discharge: No Stand-Alone Forms: My [facility] [email or web address], Smoking Cessation Medications and DC Order Prescriptions: New vancomycin 1,000 mg Recon Soln 125 mg PO Q6 Qty: 60 RF: 0 azithromycin 500 mg tablet 500 mg PO DAILY 5 Days Qty: 5 RF: 0 Continued Entresto 97-103 mg tablet 1 tab PO BID Qty: 180 RF: 3 magnesium oxide 400 mg (241.3 mg magnesium) tablet 400 mg PO QPM Qty: 90 RF: 1 buspirone 15 mg tablet 7.5 mg PO BID Qty: 90 RF: 2 potassium chloride 10 mEq capsule, extended release 40 meq PO BID Qty: 300 RF: 11 carvedilol 25 mg tablet 25 mg PO BID Qty: 180 RF: 3 albuterol sulfate [Ventolin HFA] 90 mcg/actuation HFA aerosol inhaler 2 puff INHALATION Q4H PRN (Reason: shortness of breath) RF: 0 diphenhydramine HCl [Benadryl] 25 mg Capsule 25 mg PO QAM PRN (Reason: Itching) RF: 0 hydrocortisone 2.5 % cream 1 applic TOPICAL BID PRN (Reason: Skin Irritation) RF: 0 ketoconazole 2 % cream 1 applic topical BID PRN (Reason: Skin Irritation) RF: 0 rosuvastatin 20 mg tablet 20 mg PO HS RF: 0 Xarelto 20 mg tablet 20 mg PO QPM RF: 0 multivitamin Tablet 1 tab PO QAM RF: 0 bumetanide 2 mg tablet 4 mg PO DAILY@1500 RF: 0 terazosin 10 mg capsule 10 mg PO BID RF: 0 Discharge Orders: Discharge Order (Routine); Ordered 03/04/21 Ordered By: Roro Morales Admission Data Admit Date/Time: 03/02/21 14:18 Attending Provider: Dejan Shankar Admit Provider: Thee Ding Primary Care Provider: Emelyn Washington Other Providers: Thee iDng ; Richard Car ; Chris Jennings Other Interventions: Discharge Summary Assessment (RN) Last Done: 03/04/21 16:00 Coding Level of Care Code D/C Day Management <30 mins Diagnoses Colitis K52.9 Melena K92.1 Diabetes type 2, controlled E11.9 Anemia D64.9 CAD (coronary artery disease) I25.10 Hypercholesterolemia E78.00 Atrial fibrillation I48.91 HTN, goal below 140/90 I10 Ischemic cardiomyopathy I25.5
== END 2021-03-04 16:37 | disposition home or self-care (01) | DRG 372 ==
LOC: ED 09:55 → INTOOBSV 14:18 → 3N 14:18 → SUATTDRO 14:18 → 3N 14:56

== ENCOUNTER 2025-05-08 08:09 | Inpatient (IN) ==
--- NOTE | 2025-05-08 08:38 | Emergency Department Note ---
ED Provider Note History of Present Illness Chief Complaint: Swelling/Edema to Extremity Time Seen by Provider: 05/08/25 08:13 84-year-old male, history of HFrEF (heart failure with reduced ejection fraction), chronic kidney disease stage 3a, biventricular ICD (implantable cardioverter-defibrillator) in place, and type 2 diabetes, who was recently admitted to our facility on 03/27/25 for an acute on chronic heart failure and scrotal cellulitis, who presents to the emergency department via ambulance from [facility] for concern for possible aspiration pneumonia. The patient reports that he was drinking water yesterday and started to cough. He had chest x-ray showing a right pleural effusion. Although EMS reported that he was complaining of shortness of breath, the patient denies any significant shortness of breath at the time of my evaluation. He does report swelling in his legs with increasing weight over the past few days. He currently denies any chest pain, fever or chills or urinary symptoms. The patient reports that he did have a diarrheal infection when he was in the hospital last time, and reports that the diarrhea has resolved. The patient currently denies any discomfort. Home Medications Medication Instructions Recorded Confirmed Type multivitamin 1 tab PO QAM 10/09/20 05/08/25 History albuterol sulfate 90 mcg/actuation 2 puff inhalation Q4H PRN 06/24/21 05/08/25 Rx aerosol inhaler (Ventolin HFA) shortness of breath #8.5 grams magnesium oxide 400 mg (241.3 mg 400 mg PO QPM #90 tabs 07/10/24 05/08/25 Rx magnesium) tablet sitagliptin phosphate 50 mg tablet 50 mg PO QPM #90 tabs 07/10/24 05/08/25 Rx (Januvia) Wheelchair (Manual) (Manual #1 ea 09/06/24 05/02/25 Rx Wheelchair) rosuvastatin 20 mg tablet 20 mg PO HS #90 tabs 02/18/25 05/08/25 Rx ketoconazole 2 % topical cream 1 applic topical BID PRN Skin 03/14/25 05/08/25 Rx Irritation #30 grams apixaban 2.5 mg tablet 2.5 mg PO BID #60 tabs 04/06/25 05/08/25 Rx midodrine 2.5 mg tablet 2.5 mg PO TID@0800,1200,1700 #1 tab 04/06/25 05/08/25 Rx paroxetine HCl 40 mg tablet 40 mg PO DAILY #30 tabs 04/06/25 05/08/25 Rx potassium chloride 20 mEq 40 meq (2 x 20 mEq) PO BID 90 days 04/06/25 05/08/25 Rx tablet,extended release #60 tabs acetaminophen 325 mg tablet 650 mg PO Q6H PRN pain/fever 04/10/25 05/08/25 History (Tylenol) sacubitril 24 mg-valsartan 26 mg 1 tab PO BID #180 tabs 04/10/25 05/08/25 Rx tablet (Entresto) terazosin 10 mg capsule 10 mg PO DAILY #90 caps 04/10/25 05/08/25 Rx bumetanide 2 mg tablet 4 mg (2 x 2 mg) PO DAILY #90 tabs 05/06/25 05/08/25 Rx diphenhydramine HCl 25 mg capsule 25 mg PO Q6H PRN Itching 05/08/25 05/08/25 History (Banophen) metoprolol succinate 25 mg 12.5 mg PO DAILY 05/08/25 05/08/25 History tablet,extended release 24 hr nystatin 100,000 unit/gram topical 1 applic topical QID PRN 05/08/25 05/08/25 History cream rash/irritation psyllium 1 packet PO DAILY 05/08/25 05/08/25 History Allergies Allergy/AdvReac Type Severity Reaction Status Date / Time adhesive tape Allergy Intermediate Itching, Verified 05/02/25 10:27 rash Penicillins Allergy Unknown UNSURE OF Verified 05/02/25 10:27 REACTION pineapple Allergy Unknown Verified 05/02/25 10:27 metformin AdvReac Severe AVOID DUE Verified 05/02/25 10:27 TO KIDNEY FUNCTION finasteride AdvReac Intermediate Breast pain Verified 05/02/25 10:27 lisinopril AdvReac Intermediate Cough Verified 05/02/25 10:27 Past Med/Surg History Problem List (Updated 05/08/25 @ 14:23 by WAYNE Perez) Encounter for assessment of decision-making capacity Counseling regarding goals of care Palliative care by specialist Acute exacerbation of CHF (congestive heart failure) (Acute) Cardiomyopathy (Acute) Chronic kidney disease, stage 3a (Acute) Hematuria Acute on chronic HFrEF (heart failure with reduced ejection fraction) Ventricular tachycardia Norovirus (Acute) CKD (chronic kidney disease) (Acute) Cellulitis of scrotum (Acute) Hyperkalemia (Acute) Aortic stenosis HFrEF (heart failure with reduced ejection fraction) (Acute) Diabetes type 2, controlled (Chronic) Seborrheic dermatitis (Acute) Prostatic hyperplasia (Acute) Polyarthritis (Acute) Microalbuminuria (Acute) Hypomagnesemia (Acute) Hypokalemia (Acute) Hypercholesterolemia (Acute) Hearing difficulty (Acute) HTN, goal below 140/90 (Acute) Bilateral edema of lower extremity (Acute) Asthma (Acute) Anxiety (Acute) Anemia (Acute) CAD (coronary artery disease) (Chronic) Chronic systolic CHF (congestive heart failure) F/U DR [facility] PVCs (premature ventricular contractions) Biventricular ICD (implantable cardioverter-defibrillator) in place (Acute) Implanted 06/2020, most recent check 11/2020, follows with Dr. MILLER Carpal tunnel syndrome Degenerative arthritis of knee, bilateral Depression with anxiety Atrial fibrillation REASON FOR XARELTO Cough Elevated serum creatinine Paroxysmal ventricular tachycardia Medical History Spinal stenosis C. difficile colitis Hx of basal cell carcinoma DVT prophylaxis Anemia Chronic Incarcerated right inguinal hernia Arthritis BPH (benign prostatic hyperplasia) Hx of rheumatic fever Hx of scarlet fever Surgical History History of cardiac cath [facility] 02/2019 NO STENTS History of cataract surgery LEFT/RIGHT S/P hernia surgery Open repair of incarcerated right inguinal hernia with mesh (02/11/21): MAC sedation at [facility] S/P cardiac pacemaker procedure 06/2020 History of tooth extraction History of colonoscopy History of tonsillectomy Family History Unknown No problems noted. 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 Required: No Beliefs That Will Affect Care: None marital status: Current Living Situation: Spouse Current Living Situation Comment[facility] occupational status: retired current occupation: used to work as a [employer] Feels Safe at Home: Yes Childhood Exposure to Second-Hand Smoke: Yes Diet: regular Dental Care, Regularly: Yes Physical Activity Frequency: Does not Exercise Seatbelt Use: always Sunscreen Use: No Assistive Devices: Walker Physical Exam Vital Signs Vital Signs - 24 hr 05/08/25 08:27 05/08/25 08:28 05/08/25 08:30 Temperature 36.9 C Temperature Source Oral Pulse Rate 88 87 Pulse Rate from SpO2 Sensor Respiratory Rate 22 Respiratory Effort / Characteristics Non-Labored Spontaneous Respiratory Depth Normal Respiratory Pattern Regular Blood Pressure 88/62 L 91/61 L Blood Pressure Mean 70 75 Blood Pressure Position Lying Pulse Oximetry 98 Oxygen Delivery Method Room Air Sepsis Recent Fever Within 48 Hours No Sepsis New/Unexplained Change in Mental Status N/A Sepsis Action Taken by Nursing Physician Notified 05/08/25 08:40 05/08/25 08:42 05/08/25 09:00 Temperature Temperature Source Pulse Rate 16 L 88 87 Pulse Rate from SpO2 Sensor 88 87 Respiratory Rate 14 19 Respiratory Effort / Characteristics Respiratory Depth Respiratory Pattern Blood Pressure Blood Pressure Mean Blood Pressure Position Pulse Oximetry 96 96 98 Oxygen Delivery Method Room Air Room Air Sepsis Recent Fever Within 48 Hours Sepsis New/Unexplained Change in Mental Status Sepsis Action Taken by Nursing 05/08/25 09:27 05/08/25 09:30 05/08/25 09:33 Temperature Temperature Source Pulse Rate 86 86 Pulse Rate from SpO2 Sensor 86 Respiratory Rate 19 19 Respiratory Effort / Characteristics Respiratory Depth Respiratory Pattern Blood Pressure 108/69 Blood Pressure Mean 83 Blood Pressure Position Pulse Oximetry 95 Oxygen Delivery Method Sepsis Recent Fever Within 48 Hours Sepsis New/Unexplained Change in Mental Status Sepsis Action Taken by Nursing 05/08/25 10:00 05/08/25 10:00 05/08/25 10:00 Temperature Temperature Source Pulse Rate 83 Pulse Rate from SpO2 Sensor 84 Respiratory Rate 17 Respiratory Effort / Characteristics Respiratory Depth Respiratory Pattern Blood Pressure 104/67 104/67 Blood Pressure Mean 97 97 Blood Pressure Position Pulse Oximetry 96 Oxygen Delivery Method Sepsis Recent Fever Within 48 Hours Sepsis New/Unexplained Change in Mental Status Sepsis Action Taken by Nursing 05/08/25 10:15 05/08/25 10:32 05/08/25 10:36 Temperature Temperature Source Pulse Rate 86 88 Pulse Rate from SpO2 Sensor 86 Respiratory Rate 24 25 H Respiratory Effort / Characteristics Respiratory Depth Respiratory Pattern Blood Pressure 113/63 Blood Pressure Mean 72 Blood Pressure Position Pulse Oximetry 96 Oxygen Delivery Method Room Air Sepsis Recent Fever Within 48 Hours Sepsis New/Unexplained Change in Mental Status Sepsis Action Taken by Nursing 05/08/25 11:27 05/08/25 11:30 05/08/25 11:30 Temperature Temperature Source Pulse Rate 85 86 Pulse Rate from SpO2 Sensor 89 87 Respiratory Rate 17 20 Respiratory Effort / Characteristics Respiratory Depth Respiratory Pattern Blood Pressure 98/67 L Blood Pressure Mean 71 Blood Pressure Position Pulse Oximetry 93 91 Oxygen Delivery Method Sepsis Recent Fever Within 48 Hours Sepsis New/Unexplained Change in Mental Status Sepsis Action Taken by Nursing 05/08/25 11:30 Temperature Temperature Source Pulse Rate Pulse Rate from SpO2 Sensor Respiratory Rate Respiratory Effort / Characteristics Respiratory Depth Respiratory Pattern Blood Pressure 98/67 L Blood Pressure Mean 71 Blood Pressure Position Pulse Oximetry Oxygen Delivery Method Sepsis Recent Fever Within 48 Hours Sepsis New/Unexplained Change in Mental Status Sepsis Action Taken by Nursing CONSTITUTIONAL: Healthy and well nourished. Alert and oriented X 3. GCS 15. Patient does not appear in any acute distress, nor does he appear toxic. HEENT: No scleral icterus or conjunctival injection. Mucous membranes are moist. NECK: Full active range of motion without discomfort. No JVD or carotid bruits appreciated. RESPIRATORY: Clear to auscultation bilaterally with no wheezing, crackles, rhonchi or stridor. CARDIOVASCULAR: Regular rate and rhythm with no murmurs, rubs or gallops. GASTROINTESTINAL: Bowel sounds present in all quadrants. Abdomen is soft and nontender to palpation. MUSCULOSKELETAL: Examination shows lower extremity 2+ pretibial pitting edema. Patient also has open wounds on his right 2nd and 3rd toes, with additional skin changes of bilateral lower extremities that were wrapped with gauze. Pedal pulses are intact. INTEGUMENTARY: Patient does have edema and mild erythema of the scrotal and mons region, noting history of previous scrotal cellulitis. HEMATOLOGIC: No ecchymosis or petechiae. PSYCHIATRIC: Positive affect. NEUROLOGIC: No focal neurologic deficits noted. Course Course Patient history and physical exam were performed. Nursing notes were reviewed. Vital signs are reviewed. The patient is not hypotensive, tachycardic, febrile or hypoxic on room air. IV access was established, and labs were ordered and drawn, including blood cultures x 2. An ECG was performed, showing a ventricular paced rhythm. The patient was placed on hall monitor while in the emergency department. Portable chest x-ray did not show evidence for any consolidations or failure pattern. Cardiomegaly is noted. Review of labs does show an elevated BNP of 3050. Patient is also anemic with a hemoglobin of 9.6, which is baseline for the patient. Patient does not have an elevated white count or neutrophilic shift. Lactate and procalcitonin are normal. Creatinine is 1.75, consistent with the patient's history of chronic kidney disease. Patient does not have any additional significant electrolyte abnormalities. He does have a mildly bumped troponin as well, however has chronically elevated troponin levels. Urinalysis was ordered, but there was a delay in getting urine collection. Findings were discussed with the patient. I did express concern for CHF exacerbation. The patient then voiced frustration that his healthcare providers and cardiologists are not giving him enough water pills. I did recommend admission for further management, and the patient was in agreement. The case was also discussed with Dr. Casiano, ED attending physician, who agrees with workup and admission planning. The case was then discussed with the [facility] hospitalist service who agreed to admission. Further labs were resulted, showing a normal urinalysis. Repeat troponin was also improved. INR is mildly elevated at 1.3. Venous blood gases were also normal. Administered Medications Metoprolol Succinate (Metoprolol Succ 25mg Ext Rel Tab) 12.5 mg PO DAILY [facility] Stop: 06/07/25 14:09 Last Admin: 05/08/25 14:48 Dose: 12.5 mg Documented By: ORIN Midodrine (Midodrine Hcl 2.5 Mg Tab) 2.5 mg PO TID@0800,1200,1700 [facility] Stop: 06/07/25 14:09 Last Admin: 05/08/25 14:48 Dose: 2.5 mg Documented By: ORIN Discontinued Medications Bumetanide (Bumetanide 1 Mg Tab) 2 mg PO NOW ONE Stop: 05/08/25 12:52 Last Admin: 05/08/25 12:58 Dose: 2 mg Documented By: MILAGROSK Furosemide (Furosemide Inj 20 Mg/2 Ml Vial) 20 mg IV ONE ONE Stop: 05/08/25 09:51 Last Admin: 05/08/25 10:02 Dose: 20 mg Documented By: MILAGROSK Furosemide (Furosemide Inj 20 Mg/2 Ml Vial) 20 mg IV ONE ONE Stop: 05/08/25 10:06 Last Admin: 05/08/25 10:10 Dose: 20 mg Documented By: TOMASZ Sodium Chloride (Nss) 500 mls @ 999 mls/hr IV .Q31M STA Stop: 05/08/25 09:00 Last Infusion: 05/08/25 09:47 Dose: Infused Documented By: Admin: 05/08/25 09:01 Dose: 999 mls/hr Documented By: TOMASZ Paroxetine HCl (Paroxetine Hcl 20 Mg Tab) 40 mg PO NOW ONE Stop: 05/08/25 10:44 Last Admin: 05/08/25 10:59 Dose: 40 mg Documented By: TOMASZ Medical Decision Making Medical Records Attestation: I reviewed the patient's medical records. Home Medications was personally reviewed by me Laboratory Data Attestation: I reviewed the patient's lab results. 05/08/25 08:20 05/08/25 08:20 Lab Results 05/08/25 05/08/25 05/08/25 Range/Units 08:20 10:28 10:36 WBC 7.55 (4.8-10.8) K/ul RBC 3.15 L (4.70-6.10) M/uL Hgb 9.6 L (14.0-18.0) g/dl Hct 30.5 L (42.0-52.0) % MCV 96.8 (80.0-100.0) fL MCH 30.5 (25.0-34.0) pg MCHC 31.5 L (32.0-36.0) g/dL RDW Std Deviation 50.1 H (36.4-46.3) fL RDW Coeff of Cecilia 14.4 (11.5-14.5) % Plt Count 116 L (130-400) K/uL MPV 11.2 (9.4-12.4) fL Immature Gran % (Auto) 0.4 % Neut % (Auto) 85.3 % Lymph % (Auto) 4.1 % Daggett % (Auto) 8.1 % Eos % (Auto) 1.7 % Baso % (Auto) 0.4 % Neut # (Auto) 6.44 (1.40-6.50) K/uL Lymph # (Auto) 0.31 L (1.20-3.40) K/uL Daggett # (Auto) 0.61 H (0.11-0.59) K/uL Eos # (Auto) 0.13 (0.00-0.50) K/uL Baso # (Auto) 0.03 (0.00-0.20) K/uL Immature Gran # (Auto) 0.03 (0.01-0.20) K/uL PT 14.0 H (9.0-12.0) Seconds INR 1.3 H (0.9-1.1) APTT 34 H (21-31) Seconds PTT Ratio 1.3 Sodium 141 (136-145) mmol/L Potassium 4.8 (3.5-5.1) mmol/L Chloride 106 (98-107) mmol/L Carbon Dioxide 28 (21-32) mmol/L Anion Gap 7 (3-11) BUN 38 H (6-23) mg/dl Creatinine 1.75 H (0.6-1.4) mg/dl Est Cr Clr Drug Dosing 38.5 ml/min eGFR 38.39 BUN/Creatinine Ratio 21.7 H (10-20) Glucose 200 H (70-99(Fasting)) mg/dl Lactate 1.3 (0.4-2.0) mmol/L Calcium 9.2 (8.6-10.3) mg/dl Magnesium 2.1 (1.7-2.4) mg/dl Total Bilirubin 0.9 (0.2-1.0) mg/dl AST 19 (13-39) U/L ALT 15 (7-52) U/L Alkaline Phosphatase 129 H (34-104) U/L Troponin I High Sens 43.6 H 41.2 H (0-20) pg/ml B-Natriuretic Peptide 3050 H (0-100) pg/ml Total Protein 6.8 (6.0-8.3) gm/dl Albumin 3.7 (3.4-5.0) gm/dl Globulin 3.1 (2.5-4.0) gm/dl Albumin/Globulin Ratio 1.2 (0.9-2) Procalcitonin 0.13 (0-0.5) ng/ml Urine Color Yellow Urine Appearance Clear (Clear) Urine pH 5.5 (4.5-7.5) Ur Specific Crandall 1.013 (1.000-1.030) Urine Protein Negative (Negative) Urine Glucose (UA) Negative (Negative) Urine Ketones Negative (Negative) Urine Blood Negative (Negative) Urine Nitrite Negative (Negative) Urine Bilirubin Negative (Negative) Urine Urobilinogen Negative (Negative) Ur Leukocyte Esterase Negative (Negative) Urine Comment Imaging Data Attestation: I personally reviewed and interpreted this imaging study as follows: My Impression: My interpretation reportable chest x-ray shows cardiomegaly without any obvious failure pattern, pneumothorax or pneumonia. Radiologist report was also reviewed with concurrence. Radiologist's Impression: Chest X-Ray 05/08/25 08:30 XR chest 1V portable CLINICAL HISTORY: Illness COMPARISON STUDY: 03/27/2025 FINDINGS: Single view portable chest is unchanged. Chronic cardiomegaly and pulmonary vascular congestion are redemonstrated. Triple lead pacemaker/defibrillator remains in place. There is no focal airspace opacity or pleural effusion. There is no pneumothorax. IMPRESSION: Stable exam demonstrating chronic cardiomegaly and pulmonary vascular congestion. No acute findings. ACT 112: Negative or not required by law. Electronically signed by: Ana Luisa Mills M.D. 05/08/2025 8:44 AM ECG Data Attestation: I personally reviewed and interpreted this ECG as follows: Indication: + SOB/dyspnea Rate (beats per minute): 89 Rhythm: + other (Ventricular paced rhythm) Comparison ECG Date: from (03/27/2025) Change: no significant change MDM Narrative Cardiac monitoring: An order was placed for continuous cardiac monitoring. The monitor shows a rate of 89 bpm with a ventricular paced rhythm. pvc monitor history was reviewed throughout the evaluation, and no dysrhythmias were noted. See ED Course section for further details of today's visit. The patient presents with primary complaint of shortness of breath. He was sent to the emergency department for possible aspiration pneumonia after choking on water yesterday. Portable chest x-ray was done at the facility with concern for possible infiltrate. Portable chest x-ray today does not show any obvious pneumonia or pneumothorax. Patient does have a history of congestive heart failure, with an elevated BNP today, peripheral edema and shortness of breath. After suspect CHF exacerbation. Patient also has additional wounds, however lab work is not suggestive of sepsis. The patient is afebrile, has a normal white count, and both lactate and procalcitonin are normal. Patient does have a ventricular paced rhythm with mildly elevated troponin, which is likely chronic for the patient. The patient does not have any significant electrolyte abnormalities. His laboratory studies are otherwise stable when compared to baseline labs. Given his shortness of breath and CHF exacerbation, I do feel that the patient warrants further admission and medication management. The case was also discussed with Dr. Casiano, ED attending physician, [facility] Impression Acute exacerbation of CHF (congestive heart failure), Chronic kidney disease, stage 3a, Cardiomyopathy Discharge Plan Visit Data Chief Complaint: Swelling/Edema to Extremity ED Provider: Radha Casiano ED Midlevel Provider: Jaziel Garcia Discharge Problem: Acute exacerbation of CHF (congestive heart failure), Chronic kidney disease, stage 3a, Cardiomyopathy Patient Disposition: Admitted As Inpatient Condition: Serious Discharge Instructions Interventions: ED Discharge Assessment Last Done: 05/08/25 13:02 ED DC CONDITION Conditon at Discharge Condition at Discharge: Fair
--- NOTE | 2025-05-08 08:44 | Emergency Department Note ---
ED Visit Note I was consulted by the Advanced Practice Provider, Jaziel Garcia PA-C. I performed a substantive portion of the visit. This includes aspects of: History: Patient is an 84-year-old male presenting with a choking episode. Patient was sent from his facility due to concern for potential aspiration pneumonia. He reportedly was drinking water yesterday and started to cough. He had an x-ray at his facility that showed a right pleural effusion. Patient denies any significant symptoms on arrival to the emergency department. MDM: Laboratory workup in the emergency department shows an acute kidney injury with an elevated creatinine. Patient is also noted to have an elevated troponin and BNP. Chest x-ray imaging negative for acute pathology. Patient to be admitted to the hospital with a heart failure exacerbation. .
--- NOTE | 2025-05-08 08:46 | XRay Report ---
XR chest 1V portable CLINICAL HISTORY: Illness COMPARISON STUDY: 03/27/2025 FINDINGS: Single view portable chest is unchanged. Chronic cardiomegaly and pulmonary vascular conges tion are redemonstrated. Triple lead pacemaker/defibrillator remains in place. There is no focal airs pace opacity or pleural effusion. There is no pneumothorax. IMPRESSION: Stable exam demonstrating chronic cardiomegaly and pulmonary vascular congestion. No acu te findings. ACT 112: Negative or not required by law. Electronically signed by: Ana Luisa Mills M.D. 05/08/2025 8:44 AM
[2025-05-08 08:58] LABS: Hematocrit (blood only) 30.5 % (42.0-52.0); Hemoglobin 9.6 g/dl (14.0-18.0); Immature Granulocytes # (auto) 0.03 K/uL (0.01-0.20); Immature Granulocytes % (auto) 0.4 %; Mean Corpuscular Hemoglobin 30.5 pg (25.0-34.0); Mean Corpuscular Volume 96.8 fL (80.0-100.0); Platelet Count 116 K/uL (130-400); RDW Standard Deviation 50.1 fL (36.4-46.3); Red Blood Count 3.15 M/uL (4.70-6.10); White Blood Count 7.55 K/ul (4.8-10.8)
[2025-05-08] MEDS: SODIUM CHLORIDE 0.9% 500 ML IV STA (09:01)
[2025-05-08 09:07] LABS: Alanine Aminotransferase 15.0 U/L (7-52); Albumin Globulin Ratio 1.2 (0.9-2); Alkaline Phosphatase 129.0 U/L (34-104); Anion Gap 7.0 (3-11); Bilirubin,Total 0.9 mg/dl (0.2-1.0); Blood Urea Nitrogen 38.0 mg/dl (6-23); Calcium 9.2 mg/dl (8.6-10.3); Carbon Dioxide 28.0 mmol/L (21-32); Chloride 106.0 mmol/L (98-107); Creatinine Clr Calc Pharmacy 38.5 ml/min; Globulin 3.1 gm/dl (2.5-4.0); Glucose 200.0 mg/dl (70-99(Fasting)); Magnesium 2.1 mg/dl (1.7-2.4); Potassium 4.8 mmol/L (3.5-5.1); Sodium 141.0 mmol/L (136-145); Total Protein 6.8 gm/dl (6.0-8.3)
[2025-05-08 09:21] LABS: INR 1.3 (0.9-1.1); Partial Thromboplastin Time 34 Seconds (21-31); Prothrombin Time 14.0 Seconds (9.0-12.0)
[2025-05-08] MEDS: FUROSEMIDE INJ 20 MG/2 ML VIAL IV ONE ×2 (10:02→10:10)
[2025-05-08 10:38] LABS: Appearance Urine Clear (Clear); Glucose Urine UA Negative (Negative)
--- NOTE | 2025-05-08 10:54 | History & Physical Report ---
Date of Service May 08, 2025 Assessment & Plan (1) Chronic kidney disease, stage 3a: (2) Acute on chronic HFrEF (heart failure with reduced ejection fraction): (3) Diabetes type 2, controlled: (4) Anxiety: (5) CAD (coronary artery disease): (6) Biventricular ICD (implantable cardioverter-defibrillator) in place: (7) Atrial fibrillation: Plan Candido is an 84yo M w/ PMH significant for HFrEF, DM2, biventricular ICD, A-fib on Eliquis. He presented to the ED on 05/08 from [facility] due to concern for possible aspiration pneumonia, after choking on water the day before. Initial workup was consistent with heart failure exacerbation, and he is being admitted for diuresis and further monitoring. #HFrEF - Most recent echo in May 2024 showed EF 15-20% - Initial trop 43.6, likely d/t demand ischemia; downtrending, 41.2 on recheck - BNP 3050 - CXR showed hypoinflated lungs, cardiomegaly, pulmonary edema + vascular congestion - Will admit for aggressive diuresis w/ bumex 4mg BID Received 40mg IV Lasix + 2mg po Bumex in ED - Obtain daily weights Per HF clinic note, dry weight is 190 lbs (86 kg) - Strict Is/Os - Low salt diet - Will order limited TTE, for prognostic purposes (eval change in aortic valve area) - Consult palliative Pt refusing treatments such as valve repair or CABG but expresses desire to be full code Will need to clarify his understanding of his condition/prognosis and options Family was called and updated on this plan; seem amenable to meeting with palliative team #Dysphagia - Pt reports choking on glass of water the day before admission, which prompted [facility] concern and trip to hospital - [facility] reported CXR with pleural effusion; repeat CXR in ED did now show any effusion or consolidation - Speech consulted, appreciate input Right foot wounds - Will obtain x-ray - Will consult wound care - optifoam to ulcers on b/l shins and R ft toes; xeroform to L medial calf - Start cephazolin 2000mg q8h, nystatin powder CKD - Cr 1.75 vs baseline seems to be ~1.4 - Bump maybe d/t hypoperfusion 2/2 CHF exacerbation - Balance lab values w/ clinical picture to determine if diuretic needs modifying BPH - continue terazosin DM2 - continue Januvia, diabetic diet Anxiety - continue Paxil afib - continue metoprolol, eliquis Diet: Low sodium, DM2 VTE ppx: on Eliquis Dispo: admit to PCU-tele; eventual discharge to [facility] Code: Full History of Present Illness Chief Complaint: choking spell Primary Care Provider: Idris Ogden DO Candido is an 84-year-old male, history of HFrEF, CKD3, T2DM, biventricular ICD, A-fib on Eliquis, aortic stenosis, and recent admission (03/27/25) for norovirus enteritis, acute on chronic heart failure, and scrotal cellulitis. On this prior admission, he was started on bumex 4mg bid until euvolemic, then reduced to every other day, and his SOB improved after 15kg weight loss from diuresis. He presents now from [facility] due to concern for possible aspiration pneumonia. He was drinking water yesterday and started to cough/choke, and chest x-ray at the facility showed a right pleural effusion. On arrival, he was hypotensive and EMS reported SOB. In the ED, he was given 500cc nss and has since been hemodynamically stable and satting well on room air. CXR was consistent with heart failure exacerbation. Labs were notable for creatinine above patients baseline, slightly elevated troponin, and highly elevated BNP. EKG showed normal bi-vent pacing. On my evaluation, he is alert, oriented, and able to maintain coherent conversation, but confused on some details. He believes he was only started on the Bumex 3 days ago, and it has just not had enough time to take effect. He also stated his prior admission was due to COVID. He denies any complaints at this time, says he never had any chest pain or trouble breathing, and feels the [facility] jumped the gun on bringing him here. He denies any fevers/chills, GI or urinary symptoms, dizziness or falls. He does report swelling in his legs and weight gain over the past few days, and says his weight is not being measured accurately due to his difficulty standing. He also mentions pain in his right foot, and says he needs to see it to distinguish which toe is hurting. Allergies Allergy/AdvReac Type Severity Reaction Status Date / Time adhesive tape Allergy Intermediate Itching, Verified 05/02/25 10:27 rash Penicillins Allergy Unknown UNSURE OF Verified 05/02/25 10:27 REACTION pineapple Allergy Unknown Verified 05/02/25 10:27 metformin AdvReac Severe AVOID DUE Verified 05/02/25 10:27 TO KIDNEY FUNCTION finasteride AdvReac Intermediate Breast pain Verified 05/02/25 10:27 lisinopril AdvReac Intermediate Cough Verified 05/02/25 10:27 Home Medications Medication Instructions Recorded Confirmed Type albuterol sulfate 90 mcg/actuation 2 puff inhalation Q4H PRN 06/24/21 05/08/25 Rx aerosol inhaler (Ventolin HFA) shortness of breath #8.5 grams Wheelchair (Manual) (Manual #1 ea 09/06/24 05/02/25 Rx Wheelchair) ketoconazole 2 % topical cream 1 applic topical BID PRN Skin 03/14/25 05/08/25 Rx Irritation #30 grams paroxetine HCl 40 mg tablet 40 mg PO DAILY #30 tabs 04/06/25 05/08/25 Rx acetaminophen 325 mg tablet 650 mg PO Q6H PRN pain/fever 04/10/25 05/08/25 History (Tylenol) sacubitril 24 mg-valsartan 26 mg 1 tab PO BID #180 tabs 04/10/25 05/08/25 Rx tablet (Entresto) diphenhydramine HCl 25 mg capsule 25 mg PO Q6H PRN Itching 05/08/25 05/08/25 History (Banophen) metoprolol succinate 25 mg 12.5 mg PO DAILY 05/08/25 05/08/25 History tablet,extended release 24 hr nystatin 100,000 unit/gram topical 1 applic topical QID PRN 05/08/25 05/08/25 History cream rash/irritation psyllium 1 packet PO DAILY 05/08/25 05/08/25 History bumetanide 2 mg tablet 4 mg (2 x 2 mg) PO DIRECTED #90 05/09/25 05/08/25 Rx tabs cephalexin 500 mg capsule 500 mg PO BID 6 days #12 caps 05/09/25 Rx lorazepam 0.5 mg tablet (Ativan) 0.5 mg PO Q6H PRN anxiety, sleep, 05/09/25 Rx or agitation #20 tabs morphine concentrate 100 mg/5 mL 5 mg (0.25 mL) PO Q3H PRN pain or 05/09/25 Rx (20 mg/mL) oral solution shortness of breath/air hunger #30 mL ondansetron 4 mg disintegrating 4 mg PO Q6H PRN nausea and 05/09/25 Rx tablet vomiting #10 tabs phenazopyridine 100 mg tablet 100 mg PO TID PRN urinary 05/09/25 Rx (Pyridium) pain/bladder pain #20 tabs potassium chloride 20 mEq oral 40 meq PO BID #120 ea 05/09/25 Rx packet terazosin 10 mg capsule 10 mg PO DAILY #90 caps 05/09/25 05/08/25 Rx Past Med/Surg History Problem List (Updated 05/11/25 @ 00:08 by Nader Neff) Hospice care patient Encounter for assessment of decision-making capacity Counseling regarding goals of care Palliative care by specialist Acute exacerbation of CHF (congestive heart failure) (Acute) Cardiomyopathy (Acute) Chronic kidney disease, stage 3a (Acute) Hematuria Acute on chronic HFrEF (heart failure with reduced ejection fraction) Ventricular tachycardia Norovirus (Acute) CKD (chronic kidney disease) (Acute) Cellulitis of scrotum (Acute) Hyperkalemia (Acute) Aortic stenosis HFrEF (heart failure with reduced ejection fraction) (Acute) Diabetes type 2, controlled (Chronic) Seborrheic dermatitis (Acute) Prostatic hyperplasia (Acute) Polyarthritis (Acute) Microalbuminuria (Acute) Hypomagnesemia (Acute) Hypokalemia (Acute) Hypercholesterolemia (Acute) Hearing difficulty (Acute) HTN, goal below 140/90 (Acute) Bilateral edema of lower extremity (Acute) Asthma (Acute) Anxiety (Acute) Anemia (Acute) CAD (coronary artery disease) (Chronic) Chronic systolic CHF (congestive heart failure) F/U DR [facility] PVCs (premature ventricular contractions) Biventricular ICD (implantable cardioverter-defibrillator) in place (Acute) Implanted 06/2020, most recent check 11/2020, follows with Dr. MILLER Carpal tunnel syndrome Degenerative arthritis of knee, bilateral Depression with anxiety Cough Elevated serum creatinine Paroxysmal ventricular tachycardia Medical History Spinal stenosis C. difficile colitis Hx of basal cell carcinoma DVT prophylaxis Anemia Chronic Incarcerated right inguinal hernia Arthritis BPH (benign prostatic hyperplasia) Hx of rheumatic fever Hx of scarlet fever Surgical History History of cardiac cath [facility] 02/2019 NO STENTS History of cataract surgery LEFT/RIGHT S/P hernia surgery Open repair of incarcerated right inguinal hernia with mesh (02/11/21): MAC sedation at [facility] S/P cardiac pacemaker procedure 06/2020 History of tooth extraction History of colonoscopy History of tonsillectomy Family History Unknown No problems noted. Father Diabetes Myocardial infarction Mother Myocardial infarction Brother Family history of diabetes mellitus Other No family history of adverse response to anesthesia Denies family history of Ovarian cancer Prostate cancer Breast cancer Colorectal cancer Social History Smoking Status: Never smoker Second Hand Exposure: No; Do You Dip or Chew Tobacco: No; Hx Alcohol Use: No Hx Substance Use: No Preferred Language: Stateless Communication Ability: Effective Visual Impairment: No Limitations Hearing Ability: Normal Carpet Binder Required: No Beliefs That Will Affect Care: Pentecostal marital status: Current Living Situation: [facility] Current Living Situation Comment: [place] current occupational status: retired 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 Physical Exam Physical Exam: Gen: NAD, WD/WN HEENT: NCAT, normal conjunctiva, anicteric sclera, MMM, no LAD or thyromegaly CV: RRR, +3/6 systolic murmur c/w aortic stenosis, +JVD, + b/l LE edema to mid- thigh, pedal pulses intact Resp: CTAB, +breathing somewhat labored, symmetrical chest rise Abd: Soft, NT/ND, NBS, no HSM MSK: Full ROM, no gross deformities on inspection Skin: Warm, dry, well-perfused, +several contusions and lacerations on b/l LE, bandages covering L skin, open ulcers on R foot 2nd and 3rd toe/nails, no active bleeding or purulence noted Neuro: AOx3, CN II-XII grossly intact, no focal deficits Psych: Full, euthymic affect. Speech pace normal. Thoughts linear and goal- directed. Poor insight, judgement Results & Data Results & Data Vital Signs (Past 12 Hours) Vital Signs Temp Pulse Resp BP Pulse Ox O2 Del Method 05/08/25 10:36 88 25 H 05/08/25 10:32 113/63 05/08/25 10:15 86 24 96 Room Air 05/08/25 10:00 104/67 05/08/25 10:00 104/67 05/08/25 10:00 83 17 96 05/08/25 09:33 86 19 95 05/08/25 09:30 108/69 05/08/25 09:27 86 19 05/08/25 09:00 87 19 98 05/08/25 08:42 88 14 96 Room Air 05/08/25 08:40 16 L 96 Room Air 05/08/25 08:30 91/61 L 05/08/25 08:28 36.9 C 87 22 88/62 L 98 Room Air 05/08/25 08:27 88 Supervising Physician Co-Signing Physician Notes Attending Attestation & Admit Note: Pt seen/examined, chart reviewed, admit care plan d/w resident physician Salvador Montelongo. I agree w/ the aleman components of her admit documentation with the following additions - -acute on chronic systolic CHF -MARIANNE -recent fall 84yo male with severe/chronic systolic CHF, EF 15-20%, T2DM, biventricular pacemaker/ICD, paroxysmal a.fib on Eliquis, COVID infection February 2025, CKD stage 3b, severe multi-vessel CAD, and aortic stenosis. Recent admission at [facility] from 03/27 to 04/06 for norovirus infection, acute/chronic CHF, etc. Returns with report of a choking episode yesterday at [facility]. In addition had a fall several days ago - details uncertain, although he feels he hit his right foot on the floor during the fall. Also with worsening dyspnea & dyspnea on exertion. PMH/PSH/allergies/meds/sochx - reviewed VSS, afebrile, o2 sats wnl in room air gen - lying in bed, mild tachypnea noted, seems confused neck - JVD 2/[address] up neck, +hepatojugular reflex mouth - geographic tongue heart - irregular, s1 s2 still heard, 3/6 holosystolic murmur LSB lungs - b/l basilar rales, mild tachypnea noted abd - soft NT ND BS+ musculo - right 2nd/3rd toes with erythema, mild swelling, tiny dorsal surface ulcers on both toes skin - multiple open ulcers on b/l shins; left distal leg, medial aspect, with denuded skin - large patch of such - with overlying exudate; ?cellulitis right 2nd/3rd toes ext - 2-3+ pitting edema b/l legs extending from feet to above knees labs reviewed; Cr today 1.7, baseline 1.2 to 1.4 imaging reviewed EKG - ventricular paced rhythm, PVCs (vs junctional beats) A/P: 1. episode of dysphagia/choking on 05/07 by report - no evidence of pneumonia process from such; obtain swallow eval by speech therapy 2. acute/chronic systolic CHF - patient likely needs daily diuretic rather than every other day. Also possible that ischemia/CAD and are contributing to decompensations. Echo limited ordered for prognostic purposes (mainly to look at AV) -bumex 4mg IV BID (had little reponse to lasix 40mg in the ER); he diuresed well on the bumex BID during prior stay in March 3. recent fall with right foot injury - x-rays ordered for right foot - r/o fracture 4. possible right 2nd/3rd toe cellulitis - ancef IV 5. MARIANNE - cardiorenal syndrome suspected - diurese, daily BMP 6. ?confusion vs cognitive impairment - check VBG, r/o hypercapnia; check ammonia 7. CAD - multi-vessel - CABG advised in the past and patient declined; no obvious ACS 8. mild troponin elevation - likely myocardial demand ischemia rather than ACS; demand ischemia 2nd to #2 9. - previous echo mod-severe; check limited echo more for prognostics; previously declined TAVR for this 10. wounds b/l shins and feet - wound care consult requested; in meantime - optifoams; for LLE medial aspect denuded skin - xeroform/4 x 4's/kerlix ---> but ultimately defer Rx to wound care -care d/w pt's daughter by phone today -voiced my concerns with her that given his severe CHF, known severe CAD, known , etc his prognosis is very poor and he will likely continue to have decompensations -daughter very open to palliative care consultation; daughter mentioned that her father seems to be in denial of his medical issues, and recently has attributed all of his issues to his COVID infection back in February -care d/w Cheryl Craig from palliative care; appreciate her consultation Chris Day MD Resident Activity Tracking Resident Involvement: Resident Care Provided Care Provided: Adult Hospital Medicine (5) CAD (coronary artery disease) Associated angina: without angina Coronary Disease-Associated Artery/Lesion type: douglas artery [place] vs. transplanted heart: douglas heart Qualified Code(s): I25.10 - Atherosclerotic heart disease of douglas coronary artery without angina pectoris (7) Atrial fibrillation Atrial fibrillation type: permanent Qualified Code(s): I48.21 - Permanent atrial fibrillation
[2025-05-08 12:27] LABS: Base Excess VBG -0.5 mEq/L; HCO3 VBG 25 mmol/L; Oxygen Saturation VBG 66.0 %; PCO2 VBG 43 mmHg (38-50); PO2 VBG 40 mmHg; pH VBG 7.37 (7.36-7.41)
--- NOTE | 2025-05-08 12:46 | Palliative Care Consultation ---
Date of Consultation May 08, 2025 Assessment & Plan (1) Palliative care by specialist: Met with pt at bedside. Introduced Palliative Medicine and explained our role in advanced care planning, symptom management and navigation through the progression of life limiting disease. Patient was receptive to palliative services for goals of care discussions. Reviewed we are different from hospice, a home health nurse visiting service. (2) Encounter for assessment of decision-making capacity: Patient currently exhibits decisional capacity based on the ability to convey understanding of personal PMHx, current medical condition, treatment options nor the risks / benefits/ potential outcomes of accepting/declining those options, and ability to make decisions based on such knowledge. Hospital does not have written documentation of patient wishes concerning his chosen proxy for medical decisions. Per PA [id number], in absence of written documentation of patient wishes, pt's proxy for medical decisions would be his Leonela, however pt shared that he trusts his daughter Luly Haider ([phone]) to serve as primary proxy and his son Raj Benavides as secondary proxy for medical decisions in the event he lacks decisional capacity. Pt does not currently require a proxy for medical decisions. (3) Counseling regarding goals of care: Met with pt at bedside, no visitors present. We discussed ACP/goals of care for 45 minutes. Pt shared that he had been living at the [place] with his until he got sick with COVID forllowed by rotovirus and lengthy admission to [facility] for decompensated HF. He shared frustration that he was unable to return to independent living and knowledge that his heart failure is a progressively debilitating disease. He shared concern that his "kidneys are also failing" and making it harder to control volume status. He shared that he was told 20y ago that he has a " maker heart". He shared that he has been told he has 20% heart function and is no longer a candidate for any procedures. He shared that he has previously said he did not want any bypass surgery or VAD due to high risk of and now he worries he may need amputation of his foot or leg. He shared that he did not want to come back to the hospital but they told him he had to. Discussed code status and helped patient understand that CPR is only done after a person has and involves uncomfortable and invasive procedures that, if successful. have high risk of multiple complications including but not limited to rib fractures, pneumo/hemothorax, MARIANNE, ventilator dependence, anoxic brain injury, and long term acute care registered nurse/permanent cognitive and functional deficits. CPR survival: Only about 10% of patients who have [id number]-[id number] sudden cardiac arrest survive to hospital discharge, with many survivors having neurologic impairment. This rate is even lower among patients with serious coexisting conditions, ie chance of survival to hospital discharge for in- hospital CPR in older people is low to moderate (15%) and decreases with age, comorbidities, performance status and frailty: for pts > 70 yo, more than half of the patients who initially survived resuscitation in the hospital before hospital discharge. The pooled survival to discharge after in-hospital CPR was 18% for patients between 70 and 79 years old, 15% for patients between 80 and 89 years old and 11% for patients of 90 years and older. (Tai PRADHAN, Estuardo LJ, Jose F, et al. Trends in short- and long-term survival among [id number] cardiac arrest patients alive at hospital arrival. Circulation 2014;130:1883- 1890. AND Camilla C, Cristi T, Kane R, et al. Performance of clinical risk scores to predict mortality and neurological outcome in cardiac arrest patients. Resuscitation 2019;136:21-29.) Pt stated that he does not wish to be dependent on machines and requests DNR/DNI. He questioned if he could just go back home and not come back and forth to hospital again. We discussed his heart failure as a terminal diagnosis and introduced the concept of comfort directed care as a way to focus on quality of life over length of life. Pt stated that he would want to return to [facility] on comfort care if that means he can avoid future tests, procedures and hospitalizations. Discussed hospice benefit: an interdisciplinary program offered by nurses, nurses aides, social workers, chaplains and a medical staff assistant for patients with a terminal condition and a life expectancy of less than 6 months. This is covered by Medicare at 100%/no out of pocket expense to patient and all meds/supplies needed by patient for the reason they are on hospice are paid for/covered by hospice. The goal is assure quality of life of the patient in their home setting (home, skilled nursing, inpatient hospice setting) by providing symptoms management, psychosocial and spiritual support. However, they cannot offer 24 hours care and if the family is unable to provide that care, they will have to consider personal care with out of pocket cost vs. skilled nursing placement. We discussed the goals of hospice as a patient service and the goals of care; we discussed EOL trajectories and transitions elida the emotional impact of realizing mortality as a concrete reality from prior abstract considerations. Pt was reassured that no matter where they are along this trajectory, they are not alone - their medical team will remain by their side through their journey. Discussed the pros/cons of accepting help when especially weakened and distressed by pain-which would also help provide relief/decrease caregiver burden/strain. Pt expressed desire to return to [facility] with Hospice care, but would like me to help him discuss this with his daughter and son first. I spoke with dtr Luly, meeting to discuss GOC scheduled for 10am tomorrow, 05/09/25. Plan Family meeting for 05/09 at 10am, plan for transition to [facility]. History of Present Illness Reason for Consultation: goals of care Requesting Physician: Dr Day Attending Physician: Dr Day History of Present Illness 84yo M w/ PMH significant for HFrEF, DM2, biventricular ICD, A-fib on Eliquis who presented to the ED on 05/08 from [facility] with concerns for shortness of breath. Initial workup was consistent with heart failure exacerbation, and he is being admitted for diuresis and further monitoring. Allergies Allergy/AdvReac Type Severity Reaction Status Date / Time adhesive tape Allergy Intermediate Itching, Verified 05/02/25 10:27 rash Penicillins Allergy Unknown UNSURE OF Verified 05/02/25 10:27 REACTION pineapple Allergy Unknown Verified 05/02/25 10:27 metformin AdvReac Severe AVOID DUE Verified 05/02/25 10:27 TO KIDNEY FUNCTION finasteride AdvReac Intermediate Breast pain Verified 05/02/25 10:27 lisinopril AdvReac Intermediate Cough Verified 05/02/25 10:27 Home Medications Medication Instructions Recorded Confirmed Type multivitamin 1 tab PO QAM 10/09/20 05/08/25 History albuterol sulfate 90 mcg/actuation 2 puff inhalation Q4H PRN 06/24/21 05/08/25 Rx aerosol inhaler (Ventolin HFA) shortness of breath #8.5 grams magnesium oxide 400 mg (241.3 mg 400 mg PO QPM #90 tabs 07/10/24 05/08/25 Rx magnesium) tablet sitagliptin phosphate 50 mg tablet 50 mg PO QPM #90 tabs 07/10/24 05/08/25 Rx (Januvia) Wheelchair (Manual) (Manual #1 ea 09/06/24 05/02/25 Rx Wheelchair) rosuvastatin 20 mg tablet 20 mg PO HS #90 tabs 02/18/25 05/08/25 Rx ketoconazole 2 % topical cream 1 applic topical BID PRN Skin 03/14/25 05/08/25 Rx Irritation #30 grams apixaban 2.5 mg tablet 2.5 mg PO BID #60 tabs 04/06/25 05/08/25 Rx midodrine 2.5 mg tablet 2.5 mg PO TID@0800,1200,1700 #1 tab 04/06/25 05/08/25 Rx paroxetine HCl 40 mg tablet 40 mg PO DAILY #30 tabs 04/06/25 05/08/25 Rx potassium chloride 20 mEq 40 meq (2 x 20 mEq) PO BID 90 days 04/06/25 05/08/25 Rx tablet,extended release #60 tabs acetaminophen 325 mg tablet 650 mg PO Q6H PRN pain/fever 04/10/25 05/08/25 History (Tylenol) sacubitril 24 mg-valsartan 26 mg 1 tab PO BID #180 tabs 04/10/25 05/08/25 Rx tablet (Entresto) terazosin 10 mg capsule 10 mg PO DAILY #90 caps 04/10/25 05/08/25 Rx bumetanide 2 mg tablet 4 mg (2 x 2 mg) PO DAILY #90 tabs 05/06/25 05/08/25 Rx diphenhydramine HCl 25 mg capsule 25 mg PO Q6H PRN Itching 05/08/25 05/08/25 H istory (Banophen) metoprolol succinate 25 mg 12.5 mg PO DAILY 05/08/25 05/08/25 History tablet,extended release 24 hr nystatin 100,000 unit/gram topical 1 applic topical QID PRN 05/08/25 05/08/25 History cream rash/irritation psyllium 1 packet PO DAILY 05/08/25 05/08/25 History Patient History Medical History Spinal stenosis C. difficile colitis Hx of basal cell carcinoma DVT prophylaxis Anemia Chronic Incarcerated right inguinal hernia Arthritis BPH (benign prostatic hyperplasia) Hx of rheumatic fever Hx of scarlet fever Surgical History History of cardiac cath [facility] 02/2019 NO STENTS History of cataract surgery LEFT/RIGHT S/P hernia surgery Open repair of incarcerated right inguinal hernia with mesh (02/11/21): MAC sedation at [facility] S/P cardiac pacemaker procedure 06/2020 History of tooth extraction History of colonoscopy History of tonsillectomy Family History Unknown No problems noted. Father Diabetes Myocardial infarction Mother Myocardial infarction Brother Family history of diabetes mellitus Other No family history of adverse response to anesthesia Denies family history of Ovarian cancer Prostate cancer Breast cancer Colorectal cancer Social History Smoking Status: Never smoker Second Hand Exposure: No; Do You Dip or Chew Tobacco: No; Hx Alcohol Use: No Hx Substance Use: No Preferred Language: Irish Communication Ability: Effective Visual Impairment: No Limitations Hearing Ability: Normal Cmo Required: No Beliefs That Will Affect Care: None marital status: Current Living Situation: Spouse Current Living Situation Comment: pt lives in the [facility] with his current occupational status: retired 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 Physical Exam Constitutional: WD/WN, vitals as above Eyes: PERRL, conjunctivae normal, anicteric sclerae Neck: trachea midline, no thyromegaly Respiratory: normal respiratory effort, lungs clear to auscultation Cardiovascular: Rate/Rhythm: regular rhythm paced Gastrointestinal (Abdomen): normal bowel sounds, soft, nontender, no hepatosplenomegaly obese Musculoskeletal: BL cellulitic changes to level of mid calf Neurologic: PERRL, EOMI, accommodation nl, no face palsy, no dysarthria Psychiatric: A+Ox3, euthymic affect Results & Data Vital Signs (Past 12 Hours) Vital Signs Temp Pulse Resp BP Pulse Ox O2 Del Method 05/08/25 12:41 87 05/08/25 12:00 113/80 05/08/25 11:45 87 25 H 95 Room Air 05/08/25 11:30 98/67 L 05/08/25 11:30 98/67 L 05/08/25 11:30 86 20 91 05/08/25 11:27 85 17 93 05/08/25 10:36 88 25 H 05/08/25 10:32 113/63 05/08/25 10:15 86 24 96 Room Air 05/08/25 10:00 104/67 05/08/25 10:00 104/67 05/08/25 10:00 83 17 96 05/08/25 09:33 86 19 95 05/08/25 09:30 108/69 05/08/25 09:27 86 19 05/08/25 09:00 87 19 98 05/08/25 08:42 88 14 96 Room Air 05/08/25 08:40 16 L 96 Room Air 05/08/25 08:30 91/61 L 05/08/25 08:28 36.9 C 87 22 88/62 L 98 Room Air 05/08/25 08:27 88 Laboratory Results Abnormal lab results 05/08/25 05/08/25 Range/Units 08:20 10:36 RBC 3.15 L (4.70-6.10) M/uL Hgb 9.6 L (14.0-18.0) g/dl Hct 30.5 L (42.0-52.0) % MCHC 31.5 L (32.0-36.0) g/dL RDW Std Deviation 50.1 H (36.4-46.3) fL Plt Count 116 L (130-400) K/uL Lymph # (Auto) 0.31 L (1.20-3.40) K/uL Letcher # (Auto) 0.61 H (0.11-0.59) K/uL PT 14.0 H (9.0-12.0) Seconds INR 1.3 H (0.9-1.1) APTT 34 H (21-31) Seconds BUN 38 H (6-23) mg/dl Creatinine 1.75 H (0.6-1.4) mg/dl BUN/Creatinine Ratio 21.7 H (10-20) Glucose 200 H (70-99(Fasting)) mg/dl Alkaline Phosphatase 129 H (34-104) U/L Troponin I High Sens 43.6 H 41.2 H (0-20) pg/ml B-Natriuretic Peptide 3050 H (0-100) pg/ml Diagnostic Findings Chest X-Ray 05/08/25 08:30 XR chest 1V portable CLINICAL HISTORY: Illness COMPARISON STUDY: 03/27/2025 FINDINGS: Single view portable chest is unchanged. Chronic cardiomegaly and pulmonary vascular congestion are redemonstrated. Triple lead pacemaker/defibrillator remains in place. There is no focal airspace opacity or pleural effusion. There is no pneumothorax. IMPRESSION: Stable exam demonstrating chronic cardiomegaly and pulmonary vascular congestion. No acute findings. ACT 112: Negative or not required by law. Electronically signed by: Ana Luisa Mills M.D. 05/08/2025 8:44 AM PG Care Time/CCT Total # of Minutes Spent Total Time Spent with Patient: Total time spent is greater than 50% in coordination of care (as documented) at patient's floor/unit and/or counseling patient: Advanced Care Planning 08764 Advanced Care Planning 30 [place] [address] IN/OBS CONSULT LVL 4,60M Patient Type New History Expanded Problem Focused Exam Expanded Problem Focused Medical Decision Making Moderate Complexity Diagnoses Palliative care by specialist Z51.5 Encounter for assessment of decision-making capacity Z00.8 Counseling regarding goals of care Z71.89 Additional Codes Advanced Care Planning - 78010 Advanced Care Planning 30 Min: 91129 Advanced Care Planning 30 Min ([id number])
[2025-05-08] MEDS: BUMETANIDE 1 MG TAB PO ONE (12:58)
--- NOTE | 2025-05-08 13:11 | Electrocardiogram Report ---
Test Reason : Blood Pressure : */* mmHG Vent. Rate : 89 BPM Atrial Rate : 77 BPM P-R Int : * ms QRS Dur : 172 ms QT Int : 440 ms P-R-T Axes : * 252 69 degrees QTcB Int : 535 ms Ventricular-paced rhythm Abnormal ECG When compared with ECG of 27-Mar-2025 12:15, Vent. rate has increased by 7 bpm Confirmed by Romain Cross ([id number]) on 05/08/2025 1:11:41 PM Referred By: Confirmed By: Romain Cross
[2025-05-08 13:38] LABS: Influenza A virus by PCR Negative (Neg); Influenza B virus by PCR Negative (Neg); SARS CoV2 RNA(COVID-19) Ceph NEGATIVE (Negative)
[2025-05-08] MEDS ORDERED: ALBUTEROL HFA 8 GM INHALER INH PRN (14:10)
[2025-05-08] MEDS ORDERED: POLYETHYLENE (MIRALAX) 17 GM PACK PO PRN (14:10)
[2025-05-08] MEDS: MIDODRINE HCL 2.5 MG TAB PO SCH (14:48)
[2025-05-08] MEDS: METOPROLOL SUCC 25MG EXT REL TAB PO SCH (14:48)
[2025-05-08] MEDS ORDERED: diphenhydrAMINE Capsule 25 MG CAP PO PRN (15:15)
[2025-05-08] MEDS: NYSTATIN POWDER 15GM BTL EXT SCH (18:03)
[2025-05-08] MEDS: BUMETANIDE 4 MG in SYRINGE 0 ML IV SCH (18:03)
[2025-05-08] MEDS: PHENAZOPYRIDINE HCL 100 MG TAB PO PRN (18:03)
[2025-05-08] MEDS: POTASSIUM CHLORIDE CRTAB 20 MEQ TABCR PO SCH (20:20)
[2025-05-08] MEDS: ACETAMINOPHEN 325 MG TAB PO PRN (20:20)
[2025-05-08] MEDS: ROSUVASTATIN CALCIUM 20 MG TAB PO SCH (20:20)
[2025-05-08] MEDS: APIXABAN 2.5 MG TAB PO SCH (20:20)
[2025-05-08] MEDS: VALSARTAN/SACUBITRIL 26/24MG TAB PO SCH (20:21)
[2025-05-08] MEDS: MELATONIN 3 MG TAB PO PRN (22:37)
[2025-05-09 07:00] LABS: Hematocrit (blood only) 28.4 % (42.0-52.0); Hemoglobin 9.0 g/dl (14.0-18.0); Immature Granulocytes # (auto) 0.01 K/uL (0.01-0.20); Immature Granulocytes % (auto) 0.2 %; Mean Corpuscular Hemoglobin 30.7 pg (25.0-34.0); Mean Corpuscular Volume 96.9 fL (80.0-100.0); Platelet Count 106 K/uL (130-400); RDW Standard Deviation 50.0 fL (36.4-46.3); Red Blood Count 2.93 M/uL (4.70-6.10); White Blood Count 5.79 K/ul (4.8-10.8)
[2025-05-09 07:20] LABS: Anion Gap 9.0 (3-11); Blood Urea Nitrogen 38.0 mg/dl (6-23); Calcium 8.6 mg/dl (8.6-10.3); Carbon Dioxide 26.0 mmol/L (21-32); Chloride 107.0 mmol/L (98-107); Creatinine Clr Calc Pharmacy 37.9 ml/min; Glucose 158.0 mg/dl (70-99(Fasting)); Potassium 3.2 mmol/L (3.5-5.1); Sodium 142.0 mmol/L (136-145)
--- NOTE | 2025-05-09 07:57 | Billing Data ---
Date of Service May 08, 2025 Coding Level of Care Code 57936 INT INP/OBS CARE
[2025-05-09 08:15] VITALS: PULSE 91; RESP 20; TEMP 97.3; O2SAT 92
[2025-05-09] MEDS: POTASSIUM CHLORIDE CRTAB 20 MEQ TABCR PO SCH (08:25)
[2025-05-09] MEDS ORDERED: ONDANSETRON INJ 2 MG/ML 2 ML VIAL IV PRN (10:43)
[2025-05-09] MEDS ORDERED: ATROPINE SULFATE 1% OP SOLN 5 ML BTL SL PRN (10:43)
[2025-05-09] MEDS ORDERED: GLYCOPYRROLATE 0.2 MG/ML VIAL IV PRN (10:43)
[2025-05-09] MEDS ORDERED: MoRPHine SULFATE 10 MG/0.5 ML UDP PO PRN (10:43)
[2025-05-09] MEDS ORDERED: HYOSCYAMINE SULFATE 0.125 MG TAB SL PRN (10:43)
--- NOTE | 2025-05-09 11:08 | Palliative Family Discussion ---
Date of Service May 09, 2025 Patient Directed Conference Time of Meetin:00 - 10:40 Participants: Cheryl Craig AGACNP Patient participation: yes Patient Support System: spouse, adult children and sister Other Healthcare Provider Participation: None Meeting Location: at bedside Advanced Directive available: no If yes, descriptors: The patient's surrogate medical decision maker participated: Leonela Crawley, Daughter Dahlia Haider, son Raj Crawley and dtr in law Kailey Crawley were present and pt's sister Dasha and jay Martel joined telephonically Legally authorized health care proxy: RYLEE is Leonela Crawley Other surrogate: n/a A family meeting was held for KEDAR CRAWLEY. This meeting was necessary for determining the appropriate course of treatment. Topics of Discussion Topics of Discussion: 1. Disease trajectory - HFrEf 2. goals of care 3. comfort directed care Other Content of Meetin. Opportunity given for participants to speak and ask questions. 2. Participants were assured of attention to patient comfort. 3. Reassurance provided. 4. Support was provided for informed, good-christian decisions. 5. Emotions expressed by family were acknowledged and addressed. 6. Follow-up Outpatient: n/a 7. Plan of Care: comfort directed care, hope for discharge to [facility] with [facility] Met with pt and family members listed above. Lengthy conversation held to discus s patient's wishes and goals of care. Helped family understand heart failure as a progressively debilitating disease. With pt's permission, shared details of ACP conversation held with pt yesterday (see palliative care consult note for details). In summary, pt understands that he has advanced HFrEF and has previously refused interventional procedures due to risks involved. He has chosen conservative treatment for his HF and now has elected to transition to [facility] with hope for discharge back to [facility] for ongoing hospice care with [facility]. Discussed hospice benefit: an interdisciplinary program offered by nurses, nurses aides, social workers, chaplains and a medical lab director for patients with a terminal condition and a life expectancy of less than 6 months. This is covered by Medicare at 100%/no out of pocket expense to patient and all meds/supplies needed by patient for the reason they are on hospice are paid for/covered by hospice. The goal is assure quality of life of the patient in their home setting (home, fpc, inpatient hospice setting) by providing symptoms management, psychosocial and spiritual support. However, they cannot offer 24 hours care and if the family is unable to provide that care, they will have to consider personal care with out of pocket cost vs. fpc placement. We discussed the goals of hospice as a patient service and the goals of care; we discussed EOL trajectories and transitions elida the emotional impact of realizing mortality as a concrete reality from prior abstract considerations. Pt was reassured that no matter where they are along this trajectory, they are not alone - their medical team will remain by their side through their journey. Discussed the pros/cons of accepting help when especially weakened and distressed by pain-which would also help provide relief/decrease caregiver burden/strain. Offered anticipatory guidance. Discussed changes pt may move through in the dying process including but not limited to sleeping more, disorientation when awake, restlessness, diminished senses/inability to respond to stimulus although ability to be aware of them remains intact longer, and changes in body temperatures, skin changes/mottling/cyanosis, respiratory pattern changes, and oral secretions. Family verbalized understanding. The goal is to assure a peaceful . Time Involved in Meeting: I spent 60 minutes overall addressing this case: 5 in medical data review/discussion with referring provider(s) and/or preparation for the visit 40 in direct interaction with the patient and family 40 Advance Care Planning/Goals of Care discussions as detailed above in note (must be >16min) 10 in subsequent review and synthesis of assessment and plan 5 in communicating with other providers regarding the patient's case: KRANTHI MORALES, attending
--- NOTE | 2025-05-09 16:00 | Discharge Summary ---
Discharge Summary Date of Service May 09, 2025 Principal Dx & Hospital Course #1 = Principal Diagnosis Admission HPI Per Admitting Provider Candido is an 84-year-old male, history of HFrEF, CKD3, T2DM, biventricular ICD, A-fib on Eliquis, aortic stenosis, and recent admission (03/27/25) for norovirus enteritis, acute on chronic heart failure, and scrotal cellulitis. On this prior admission, he was started on bumex 4mg bid until euvolemic, then reduced to every other day, and his SOB improved after 15kg weight loss from diuresis. He presents now from [facility] due to concern for possible aspiration pneumonia. He was drinking water yesterday and started to cough/choke, and chest x-ray at the facility showed a right pleural effusion. On arrival, he was hypotensive and EMS reported SOB. In the ED, he was given 500cc nss and has since been hemodynamically stable and satting well on room air. CXR was consistent with heart failure exacerbation. Labs were notable for creatinine above patients baseline, slightly elevated troponin, and highly elevated BNP. EKG showed normal bi-vent pacing. On my evaluation, he is alert, oriented, and able to maintain coherent conversation, but confused on some details. He believes he was only started on the Bumex 3 days ago, and it has just not had enough time to take effect. He also stated his prior admission was due to COVID. He denies any complaints at this time, says he never had any chest pain or trouble breathing, and feels the [facility] jumped the gun on bringing him here. He denies any fevers/chills, GI or urinary symptoms, dizziness or falls. He does report swelling in his legs and weight gain over the past few days, and says his weight is not being measured accurately due to his difficulty standing. He also mentions pain in his right foot, and says he needs to see it to distinguish which toe is hurting. Discharge Plan Discharge Items Patient Disposition: Personal [facility] Reason For Visit: HFrEF EXACERBATION Discharge Diagnosis: 1. acute on chronic systolic congestive heart failure 2. episode of dysphagia pre-admission 3. right 2nd/3rd toe cellulitis 4. venous ulcers b/l shins 5. chronic kidney disease 6. aortic valve stenosis 7. transition to hospice 8. coronary artery disease Activity: Resume your previous activity Activity Comment: as tolerated/as desired Non-emergency contact: Primary Care Provider Call non-emergency contact if: you have any medication questions, your symptoms worsen, your pain is not controlled, your pain is worsening, your pain is unusual for you and your pain is concerning for you Follow-up/Referrals: Idris Ogden DO [Primary Care Provider] - Diet: Carb Consistent or DM2 and Heart Healthy Addtl Attending Provider Instructions: Mr Benavides was hospitalized for acute on chronic systolic CHF as well as a recent episode of dysphagia at his personal intermediate. He received IV diuretics while here with improvement in his shortness of breath. He appeared to have mild cellulitis of his 2nd/3rd toes on the right foot - treated with antibiotics. Seen by wound care for multiple b/l wounds on both shins & feet. He did not have dysphagia except for when taking his potassium pills. Palliative care was consulted due to end-stage heart disease/congestive heart failure. Hospice was discussed with patient & his family. Patient agreeable to DNR/DNI status and transition to hospice at his personal intermediate. Recommendations - 1. diuretic - bumex (bumetanide) 4mg twice daily x 3 days, then resume 4mg once daily thereafter 2. leave posey in place; exchange every 30 days and prn 3. liquid morphine q3h prn pain/shortness of breath 4. zofran 4mg q6h prn nausea/vomiting 5. ativan 0.5mg q6h prn anxiety/sleep 6. pyridium 100mg q8h prn urinary pain 7. cephalexin 500mg twice daily x 6 additional days (for right 2nd/3rd toe cellulitis) 8. discontinue checking fingerstick blood sugars 9. discontinue daily weights 10. NC Oxygen as needed for shortness of breath or hypoxia 11. potassium pills have been changed to POWDER for ease of administration 12. wound care to all wounds on shins & feet - see separate instructions from wound care team It was our pleasure to care for Mr Benavides! Pending Studies at Discharge: No Stand-Alone Forms: My [employer], Smoking Cessation Skilled Items Patient informed of condition?: Yes DNR: Yes Discharge Level of Care: Other Communicable Disease: No Discharge Prognosis: Other Lines: None Urinary Catheter: Yes Medications and DC Order Prescriptions: New phenazopyridine [Pyridium] 100 mg Tablet 100 mg PO TID PRN (Reason: urinary pain/bladder pain) Qty: 20 0RF ondansetron 4 mg tablet,disintegrating 4 mg PO Q6H PRN (Reason: nausea and vomiting) Qty: 10 0RF morphine concentrate 100 mg/5 mL (20 mg/mL) Solution 5 mg PO Q3H PRN (Reason: pain or shortness of breath/air hunger) Qty: 30 0RF lorazepam [Ativan] 0.5 mg tablet 0.5 mg PO Q6H PRN (Reason: anxiety, sleep, or agitation) Qty: 20 0RF cephalexin 500 mg capsule 500 mg PO BID 6 Days Qty: 12 0RF potassium chloride 20 mEq packet 40 meq PO BID Qty: 120 1RF Continued albuterol sulfate [Ventolin HFA] 90 mcg/actuation HFA aerosol inhaler 2 puff INHALATION Q4H PRN (Reason: shortness of breath) Qty: 8.5 0RF ketoconazole 2 % cream 1 applic topical BID PRN (Reason: Skin Irritation) Qty: 30 4RF (DME) Manual Wheelchair Device See Rx Instructions .Route Qty: 1 0RF Rx Instructions: As directed M17.0 acetaminophen [Tylenol] 325 mg tablet 650 mg PO Q6H PRN (Reason: pain/fever) Entresto 24-26 mg tablet 1 tab PO BID Qty: 180 3RF paroxetine HCl 40 mg tablet 40 mg PO DAILY Qty: 30 3RF Metamucil Packet 1 packet PO DAILY Rx Instructions: mix into at least 8 oz of water or juice before administering diphenhydramine HCl [Banophen] 25 mg Capsule 25 mg PO Q6H PRN (Reason: Itching) nystatin 100,000 unit/gram cream 1 applic TOPICAL QID PRN (Reason: rash/irritation) metoprolol succinate 25 mg tablet extended release 24 hr 12.5 mg PO DAILY Patient Comments: 05/08- Per faxed med list, instructions are 1/2 tab daily. terazosin 10 mg capsule 10 mg PO DAILY Qty: 90 3RF Changed bumetanide 2 mg tablet 4 mg PO DIRECTED Qty: 90 3RF Rx Instructions: take 4mg twice daily x 3 days, then resume 4mg once daily thereafter Discontinued magnesium oxide 400 mg (241.3 mg magnesium) tablet 400 mg PO QPM Qty: 90 3RF Januvia 50 mg tablet 50 mg PO QPM Qty: 90 3RF Patient Comments: QHS rosuvastatin 20 mg tablet 20 mg PO HS Qty: 90 3RF multivitamin Tablet 1 tab PO QAM midodrine 2.5 mg Tablet 2.5 mg PO TID@0800,1200,1700 Qty: 1 0RF apixaban 2.5 mg tablet 2.5 mg PO BID Qty: 60 3RF potassium chloride 20 mEq tablet extended release 40 meq PO BID 90 Days Qty: 60 3RF Discharge Orders: Discharge Order (Routine); Ordered 05/09/25 Ordered By: Chris Day Admission Data Admit Date/Time: 05/08/25 11:39 Attending Provider: Chris Day Admit Provider: Salvador Montelongo Primary Care Provider: Idris Ogden Other Providers: hCris Day; Zuly Marsh; [facility] Stay Data Consultations 05/08/25 10:25 ED Decision to Admit Stat 05/08/25 12:03 Consult Palliative Care Routine Pending Results Patient Have Any Pending Studies at Discharge: No Discharge Instructions Given to Patient (Per Discharging Provider) Mr Benavides was hospitalized for acute on chronic systolic CHF as well as a recent episode of dysphagia at his personal intermediate. He received IV diuretics while here with improvement in his shortness of breath. He appeared to have mild cellulitis of his 2nd/3rd toes on the right foot - treated with antibiotics. Seen by wound care for multiple b/l wounds on both shins & feet. He did not have dysphagia except for when taking his potassium pills. Palliative care was consulted due to end-stage heart disease/congestive heart failure. Hospice was discussed with patient & his family. Patient agreeable to DNR/DNI status and transition to hospice at his personal intermediate. Recommendations - 1. diuretic - bumex (bumetanide) 4mg twice daily x 3 days, then resume 4mg once daily thereafter 2. leave posey in place; exchange every 30 days and prn 3. liquid morphine q3h prn pain/shortness of breath 4. zofran 4mg q6h prn nausea/vomiting 5. ativan 0.5mg q6h prn anxiety/sleep 6. pyridium 100mg q8h prn urinary pain 7. cephalexin 500mg twice daily x 6 additional days (for right 2nd/3rd toe cellulitis) 8. discontinue checking fingerstick blood sugars 9. discontinue daily weights 10. NC Oxygen as needed for shortness of breath or hypoxia 11. potassium pills have been changed to POWDER for ease of administration 12. wound care to all wounds on shins & feet - see separate instructions from wound care team It was our pleasure to care for Mr Benavides! Coding
[2025-05-09 16:02] VITALS: BP 101/68
== END 2025-05-09 16:45 | disposition hospice, home (50) | DRG 291 ==
LOC: ED 08:09 → 2E 11:39
DX: Z88.0 Allergy status to penicillin; L03.031 Cellulitis of right toe; R13.10 Dysphagia, unspecified; Z95.810 Presence of automatic (implantable) cardiac defibrillator; L97.228 Non-pressure chronic ulcer of left calf with other specified severity; E11.621 Type 2 diabetes mellitus with foot ulcer; E11.22 Type 2 diabetes mellitus with diabetic chronic kidney disease; I24.89 Other forms of acute ischemic heart disease; Z79.01 Long term (current) use of anticoagulants; N17.9 Acute kidney failure, unspecified; I25.10 Atherosclerotic heart disease of native coronary artery without angina pectoris; I48.0 Paroxysmal atrial fibrillation; I35.0 Nonrheumatic aortic (valve) stenosis; I50.23 Acute on chronic systolic (congestive) heart failure; N18.31 Chronic kidney disease, stage 3a; F41.9 Anxiety disorder, unspecified; L97.218 Non-pressure chronic ulcer of right calf with other specified severity; I13.0 Hypertensive heart and chronic kidney disease with heart failure and stage 1 through stage 4 chronic kidney disease, or unspecified chronic kidney disease; Z51.5 Encounter for palliative care; Z66 Do not resuscitate; I42.9 Cardiomyopathy, unspecified; I87.2 Venous insufficiency (chronic) (peripheral)